=== PATIENT | male | born 1955 | race Caucasian/White ===

== ENCOUNTER 2017-03-27 08:15 | Emergency (ER) | payer MEDICARE ==
[~2017-03-27] VITALS: Ht 185.4 cm; Wt 113.4 kg
[~2017-03-27 08:15] MED LIST: ADULT LOW DOSE81 MG PO; AMITRIPTYLINE H10 MG PO; ATACAND8 MG PO; BUPROPION HCL100 M1 PO; CANDESARTAN-HC1 EACH PO; DIAZEPAM5 MG PO; DILAUDID2 MG PO; FLOMAX0.4 MG PO; LORTAB 7.5-5001 EACH PO; LOSARTAN-HCTZ1 EACH PO; METFORMIN HCL500 MG PO; NASAL DECONGEST30 MG PO; NORCO 5-325 TA1 EACH PO; PERCOCET 10-321 EACH PO; PERCOCET 5-3251 EACH PO; POTASSIUM CITR10 MEQ PO; POTASSIUM CITR500 GM MISC; PROZAC20 MG PO; PYRIDIUM200 MG PO; SIMVASTATIN10 MG PO; ZOFRAN ODT8 MG PO; ZOLPIDEM TARTRA10 MG PO
--- OUTSIDE RECORDS SUMMARY | 2017-03-27 08:58 | XMS | Clinical Summary ---
Demographics + + + | Address | [address] | | | [place] [address] | + + + | Home Phone | | + + + | Preferred Language | Unknown | + + + | Marital Status | | + + + | Sikhism Affiliation | Unknown | + + + | Race | White | + + + | Ethnic Group | Not or | + + + Author + + + | Author | [facility] | + + + | Organization | [facility] | + + + | Address | Unknown | + + + | Phone | Unavailable | + + + Support +------+ +---------+ + +--------+ | Name | Relationship | Address | Phone | +------+ +---------+ + +--------+ ECON | [address] | | [place] | [address] | +------+ +---------+ + +--------+ Care Team Providers + +------+-------+ | Care Laborer Sawmill Name | Role | Phone | + +------+-------+ | Flo Mendoza DO | PP | tel | + +------+-------+ Source Comments [facility] and [facility] Allergies No Known Allergies Current Medications + + +-------+---------+------+------+-------+ | Prescription | Sig. | Disp. | Refills | Star | End | Statu | | | | | | t | Date | s | | | | | | Date | | | + + +-------+---------+------+------+-------+ | ZYRTEC OR | None Entered | | | | | Activ | | | | | | | | e | + + +-------+---------+------+------+-------+ | ASPIRIN 81 MG CAP, | take 1 capsule | | | | | Activ | | DELAYED RELEASE | (81mg) by oral route | | | | | e | | | once daily | | | | | | + + +-------+---------+------+------+-------+ | | None Entered | | | | | Activ | | E-[id number]-R-PYROGLU | | | | | | e | | BRITT (BULK) MISC | | | | | | | + + +-------+---------+------+------+-------+ | GLUCOSAMINE (BULK) | None Entered | | | | | Activ | | MISC | | | | | | e | + + +-------+---------+------+------+-------+ | Topiramate | take 1 tab po bid | 60 | 3 | 05/3 | | Activ | | (TOPAMAX) 25 mg Oral | | | | 1/20 | | e | | TABS | | | | 07 | | | + + +-------+---------+------+------+-------+ | Amitriptyline HCl | start with 1 tab a | 120 | 3 | 11/2 | | Activ | | 10 mg Oral Tablet | night increasing by | | | 9/20 | | e | | | 1 tab up to 40 mg | | | 07 | | | + + +-------+---------+------+------+-------+ | Atorvastatin | take 1 tablet (20 | | | | | Activ | | Calcium (LIPITOR) 20 | mg) by oral route | | | | | e | | mg Oral Tablet | once daily | | | | | | + + +-------+---------+------+------+-------+ | | take 1 capsule by | | | | | Activ | | Dipyridamole-Aspirin | oral route 2 times | | | | | e | | (AGGRENOX) 200-25 | per day in the | | | | | | | mg Oral Cap, | morning and evening | | | | | | | Multiphasic Release | | | | | | | | 12 hr | | | | | | | + + +-------+---------+------+------+-------+ | Candesartan | take 1 tablet (8 mg) | | | | | Activ | | Cilexetil (ATACAND) | by oral route once | | | | | e | | 8 mg Oral Tablet | daily | | | | | | + + +-------+---------+------+------+-------+ | Escitalopram | take 1 tablet (10 | | | | | Activ | | Oxalate (LEXAPRO) 10 | mg) by oral route | | | | | e | | mg Oral Tablet | once daily | | | | | | + + +-------+---------+------+------+-------+ | Folic Acid 1 mg | take 1 tablet (1 mg) | | | | | Activ | | Oral Tablet | by oral route once | | | | | e | | | daily | | | | | | + + +-------+---------+------+------+-------+ | Escitalopram | take 3 tablets a day | | | | | Activ | | Oxalate (LEXAPRO) 10 | | | | | | e | | mg Oral Tablet | | | | | | | + + +-------+---------+------+------+-------+ Active Problems Not on file Family History + + +------+ + | Medical History | Relation | Name | Comments | + + +------+ + | Liver Disease | Brother | | hep c | + + +------+ + | Heart Failure | Father | | | + + +------+ + + +------+--------+ + | Relation | Name | Status | Comments | + +------+--------+ + | Brother | | | | + +------+--------+ + | Father | | | | + +------+--------+ + Social History + + + +--------+ + | Tobacco Use | Types | Packs/Day | Years | Date | | | | | Used | | + + + +--------+ + | Former Smoker | Cigarettes | 0.5 | | Quit: 03/18/1999 | + + + +--------+ + + + +---------+ + | Alcohol Use | Drinks/We | oz/Week | Comments | | | ek | | | + + +---------+ + | Yes | | | | + + +---------+ + + + + | Sex Assigned at | Date Recorded | | | | + + + | Not on file | | + + + Last Filed Vital Signs + + + + | Vital Sign | Reading | Time Taken | + + + + | Blood Pressure | 116/80 | 03/28/2007 11:07 AM PST | + + + + | Pulse | 84 | 03/28/2007 11:07 AM PST | + + + + | Temperature | - | - | + + + + | Respiratory Rate | 18 | 03/28/2007 11:07 AM PST | + + + + | Oxygen Saturation | 97% | 03/28/2007 11:07 AM PST | + + + + | Inhaled Oxygen | - | - | | Concentration | | | + + + + | Weight | 126.2 kg (278 lb 4.8 | 03/28/2007 11:07 AM PST | | | oz) | | + + + + | Height | - | - | + + + + | Body Mass Index | - | - | + + + + Plan of Treatment + + + + + | Health Maintenance | Due Date | Last Done | Comments | + + + + + | INFLUENZA VACCINE | | | | | (FLU SHOT) | 7 | | | + + + + + Results Not on filefrom Last 3 Months"
[2017-03-27] MEDS ORDERED: ONDANSETRON ODT8 MG PO (09:37)
[2017-03-27] MEDS ORDERED: PROTONIX40 MG PO (09:37)
== END 2017-03-27 09:52 | disposition home or self-care (01) ==
LOC: ED 08:15
DX: R11.2 Nausea with vomiting, unspecified (principal); R10.9 Unspecified abdominal pain; I10 Essential (primary) hypertension; Z87.442 Personal history of urinary calculi; Z87.891 Personal history of nicotine dependence; Z90.49 Acquired absence of other specified parts of digestive tract; Z88.5 Allergy status to narcotic agent; Z79.899 Other long term (current) drug therapy; Z79.82 Long term (current) use of aspirin
CPT/HCPCS: 76705; 80053; 82150; 83690; 85025; 96374; 96375; 99284; J2270; J2405; J7030

== ENCOUNTER 2017-07-09 01:54 | Emergency (ER) | payer MEDICARE ==
[~2017-07-09] VITALS: Ht 185.4 cm; Wt 117.9 kg
--- OUTSIDE RECORDS SUMMARY | ~2017-07-09 | XMS | Clinical Summary ---
Demographics + + + | Address | [address] | | | [place] [address] | + + + | Home Phone | | + + + | Preferred Language | Unknown | + + + | Marital Status | | + + + | Yarsani Affiliation | Unknown | + + + | Race | Unknown | + + + | Ethnic Group | Unknown | + + + Author + + + | Author | [facility] | | | and [place] | + + + | Organization | [facility] | | | and [place] | + + + | Address | Unknown | + + + | Phone | Unavailable | + + + Support + + +---------+ + | Name | Relationship | Address | Phone | + + +---------+ + | FABY HILLIARD ECON | Unknown | | + + +---------+ + Care Team Providers + +------+ + | Care Pick Up Man Name | Role | Phone | + +------+ + PP | Unavailable | + +------+ + Allergies Not on File Current Medications Not on file Active Problems Not on file Social History + +-------+ +--------+------+ | Tobacco Use | Types | Packs/Day | Years | Date | | | | | Used | | + +-------+ +--------+------+ | Never Assessed | | | | | + +-------+ +--------+------+ + + + | Sex Assigned at | Date Recorded | | | | + + + | Not on file | | + + + Plan of Treatment + + + + + | Health Maintenance | Due Date | Last Done | Comments | + + + + + | Hepatitis C | | | | | Screening | 8 | | | + + + + + | Vaccine: | | | | | Dtap/Tdap/Td (1 - | 7 | | | | Tdap) | | | | + + + + + | COLON CANCER | | | | | SCREENING | 8 | | | | (COLONOSCOPY EVERY | | | | | 10 YEARS 50-75) | | | | + + + + + | Vaccine: Influenza | | | | | (Season Ended) | 8 | | | + + + + + Results Not on filefrom Last 3 Months"
--- OUTSIDE RECORDS SUMMARY | ~2017-07-09 | XMS | Clinical Summary ---
Demographics + + + | Address | [address] | | | [place] [address] | + + + | Home Phone | | + + + | Preferred Language | Unknown | + + + | Marital Status | | + + + | Episcopalian Affiliation | Unknown | + + + | Race | White | + + + | Ethnic Group | Not or | + + + Author + + + | Author | [facility] | + + + | Organization | [facility] | + + + | Address | Unknown | + + + | Phone | Unavailable | + + + Support + + + + + | Name | Relationship | Address | Phone | + + + + + | LANCE WARREN | ECON | [address] | | | | | [place] | | | | | [address] | | + + + + + Care Team Providers + +------+ + | Care Activities Concierge Name | Role | Phone | + +------+ + | Flo Mendoza DO | PP | | + +------+ + Source Comments EYAL is fully live on both [facility] Amb[facility] and [facility] InPatient.[facility] Allergies No Known Allergies Current Medications [...] | | | | Activ | | U-[id number]-K-PYROGLU | | | | | | e [...] | | | | (FLU SHOT) | 8 | | | + + + + + Results Not on filefrom Last 3 Months"
--- OUTSIDE RECORDS SUMMARY | ~2017-07-09 | XMS | Clinical Summary ---
Demographics + + + | Address | [address] | | | [place] [address] | + + + | Home Phone | | + + + | Preferred Language | Unknown | + + + | Marital Status | | + + + | Episcopal Affiliation | Unknown | + + + | Race | White | + + + | Ethnic Group | Not or | + + + Author + + + | Author | [facility] | + + + | Organization | [facility] | + + + | Address | Unknown | + + + | Phone | Unavailable | + + + Support + + + + + | Name | Relationship | Address | Phone | + + + + + | LANCE WARREN | ECON | [address] | | | | | [place] | | | | | [address] | | + + + + + Care Team Providers + +------+ + | Care Ceramic Tile Mechanic Name | Role | Phone | + +------+ + | Flo Mendoza DO | PP | | + +------+ + Source Comments EYAL is fully live on both [facility] and [facility] InPatient.[facility] Allergies No Known Allergies Current Medications [...] | | | | Activ | | P-[id number]-T-PYROGLU | | | | | | e [...]
--- OUTSIDE RECORDS SUMMARY | ~2017-07-09 | XMS | Clinical Summary ---
Demographics + + + | Address | [address] | | | [place] [address] | + + + | Home Phone | | + + + | Preferred Language | Unknown | + + + | Marital Status | | + + + | Yazdanism Affiliation | Unknown | + + + | Race | Unknown | + + + | Ethnic Group | Unknown | + + + Author + + + | Author | [facility] | | | and [place] | + + + | Organization | [facility] | | | and [...] Team Providers + +------+ + | Care Automatic Beam Warper Tender Name | Role | Phone | + [...]
--- OUTSIDE RECORDS SUMMARY | ~2017-07-09 | XMS | Clinical Summary ---
Demographics + + + | Address | [address] | | | [place] [address] | + + + | Home Phone | | + + + | Preferred Language | Unknown | + + + | Marital Status | | + + + | Judaism Affiliation | Unknown | + + + | Race | Unknown | + + + | Ethnic Group | Unknown | + + + Author + + + | Author | [facility] | + + + | Organization | [facility] | + + + | Address | Unknown | + + + | Phone | Unavailable | + + + Support + + + + + | Name | Relationship | Address | Phone | + + + + + | Angeline Hilliard | ECON | [address] | | | | | [place] | | | | | [address] | | + + + + + Care Team Providers + +------+ + | Care Landscape Maintenance Internship Name | Role | Phone | + +------+ + | Andrew Mendoza DO | PP | | + +------+ + Allergies + + + + + + | Active Allergy | Reactions | Severity | Noted | Comments | | | | | Date | | + + + + + + | Codeine | Diarrhea | Low | 06/03/19 | NAUSEA, VOMITING | | | | | 16 | | + + + + + + Current Medications + + +-------+---------+------+------+-------+ | Prescription | Sig. | Disp. | Refills | Star | End | Statu | | | | | | t | Date | s | | | | | | Date | | | + + +-------+---------+------+------+-------+ | potassium citrate | Take 20 mEq by mouth | | | | | Activ | | (UROCIT-K) 10 MEQ | 2 (two) times | | | | | e | | (1080 MG) SR tablet | daily. | | | | | | + + +-------+---------+------+------+-------+ | buPROPion | Take 100 mg by mouth | | | | | Activ | | (WELLBUTRIN) 100 MG | daily. | | | | | e | | tablet | | | | | | | + + +-------+---------+------+------+-------+ | metFORMIN | Take 500 mg by mouth | | | | | Activ | | (GLUCOPHAGE) 500 MG | 2 (two) times daily | | | | | e | | tablet | with meals. | | | | | | + + +-------+---------+------+------+-------+ | | Take 1 tablet by | | | | | Activ | | losartan-hydrochloro | mouth daily. | | | | | e | | thiazide (HYZAAR) | | | | | | | | 50-12.5 MG per | | | | | | | | tablet | | | | | | | + + +-------+---------+------+------+-------+ | Zolpidem Tartrate | Place under the | | | | | Activ | | 10 MG SUBL | tongue. | | | | | e | + + +-------+---------+------+------+-------+ | simvastatin | Take 10 mg by mouth | | | | | Activ | | (ZOCOR) 10 MG tablet | nightly. | | | | | e | + + +-------+---------+------+------+-------+ | loratadine | Take 10 mg by mouth | | | | | Activ | | (CLARITIN) 10 MG | daily. | | | | | e | | tablet | | | | | | | + + +-------+---------+------+------+-------+ | Fluoxetine HCl, | Take 80 mg by mouth | | | | | Activ | | PMDD, 20 MG CAPS | every morning. | | | | | e | + + +-------+---------+------+------+-------+ | aspirin 81 MG | Take 81 mg by mouth | | | | | Activ | | tablet | daily. 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) | | + + + | Memory loss | 06/07/2015 | + + + | Obstructive sleep apnea | 06/07/2015 | + + + | Hypertension | 06/07/2015 | + + + | Noncompliance with CPAP treatment | 06/07/2015 | + + + Family History + +------+ + + | Relation | Name | Status | Comments | + +------+ + + | Father | | | | + +------+ + + | Mother | | | | + +------+ + + Social History + +-------+ +--------+ + | Tobacco Use | Types | Packs/Day | Years | Date | | | | | Used | | + +-------+ +--------+ + | Former Smoker | | | | Quit: 08/28/1996 | + +-------+ +--------+ + + +---+---+---+ | Smokeless Tobacco: | | | | | Never Used | | | | + +---+---+---+ + + +---------+ + | Alcohol Use | Drinks/We | oz/Week | Comments | | | ek | | | + + +---------+ + | Yes | 0 | 0.0 | occasional | | | Standard | | | | | drinks or | | | | | | | | | | equivalen | | | | | t | | | + + +---------+ + + + + | Sex Assigned at | Date Recorded | | | | + + + | Not on file | | + + + Last Filed Vital Signs + + + + | Vital Sign | Reading | Time Taken | + + + + | Blood Pressure | 146/90 | 08/28/2016 12:44 PM PDT | + + + + | Pulse | 78 | 08/28/2016 12:44 PM PDT | + + + + | Temperature | - | - | + + + + | Respiratory Rate | - | - | + + + + | Oxygen Saturation | 96% | 08/28/2016 12:44 PM PDT | + + + + | Inhaled Oxygen | - | - | | Concentration | | | + + + + | Weight | 120.7 kg (266 lb 3.2 | 08/28/2016 12:44 PM PDT | | | oz) | | + + + + | Height | 185.4 cm (6' 1") | 08/28/2016 12:44 PM PDT | + + + + | Body Mass Index | 35.12 | 08/28/2016 12:44 PM PDT | + + + + Plan of Treatment + + + + + | Health Maintenance | Due Date | Last Done | Comments | + + + + + | Vaccine: | | | | | Dtap/Tdap/Td (1 - | 7 | | | | Tdap) | | | | + + + + + | Colon Cancer | | | | | Screening | 8 | | | | (Colonoscopy) | | | | + + + + + | Vaccine: Influenza | | | | | (Season Ended) | 8 | | | + + + + + Results Not on filefrom Last 3 Months Insurance + +--------+ +------+-------+ + | Payer | Benefi | Subscriber | Type | Phone | Address | | | t Plan | ID | | | | | | / | | | | | | | Group | | | | | + +--------+ +------+-------+ + | MEDICARE | MEDICA | xxxxxxxxxx | | | [address] | | | RE | | | | [place] [id number] | | | IP-OP | | | | | + +--------+ +------+-------+ + | FIRST CHOICE | FC-NET | xxxxxxxxxxx | | | | | | WORK | | | | | + +--------+ +------+-------+ + + +--------+ +--------+ + + | Guarantor Name | Accoun | Relation to | Date | Phone | Billing Address | | | t Type | Patient | of | | | | | | | | | | + +--------+ +--------+ + + | VLADIMIR HILLIARD | Person | Self [birth year] | Home: | [address] | | | al/[place]im[place] | | [phone] | [phone] [place] | | | [place] | | | [phone] | [phone] | + +--------+ +--------+ + +
--- OUTSIDE RECORDS SUMMARY | ~2017-07-09 | XMS | Clinical Summary ---
Demographics + + + | Address | [address] | | | [place] [address] | + + + | Home Phone | | + + + | Preferred Language | Unknown | + + + | Marital Status | | + + + | Nondenominational Affiliation | Unknown | + + + | Race | Unknown | + + + | Ethnic Group | Unknown | + + + Author + + + | Author | [facility] | + + + | Organization | [facility] | + + + | Address | Unknown | + + + | Phone | Unavailable | + + + Support + + + + + | Name | Relationship | Address | Phone | + + + + + | Angeline Hilliard | ECON | [address] | | | | | [place] | | | | | [address] | | + + + + + Care Team Providers + +------+ + | Care Instructional Supervisor Name | Role | Phone | + [...] | xxxxxxxxxx | | | [address] | | | RE | | | | [place] [phone] | | | IP-OP | | | [...] | [place] | | | [phone] | [phone] | + +--------+ +--------+ + +
[~2017-07-09 01:54] MED LIST changes: +ONDANSETRON ODT8 MG PO; +PROTONIX40 MG PO
[2017-07-09] MEDS ORDERED: SCOPOLAMINE1 EACH TD (02:02)
[2017-07-09] MEDS ORDERED: TAMSULOSIN HCL0.4 MG PO (02:02)
[2017-07-09] MEDS ORDERED: PROMETHAZINE12.5 M1 PO (02:10)
[2017-07-09] MEDS ORDERED: PERCOCET 5-3251 EACH PO (03:26)
== END 2017-07-09 03:53 | disposition home or self-care (01) ==
LOC: ED 01:54
DX: N13.2 Hydronephrosis with renal and ureteral calculous obstruction (principal); I10 Essential (primary) hypertension; Z87.442 Personal history of urinary calculi; Z87.891 Personal history of nicotine dependence; Z88.5 Allergy status to narcotic agent; Z79.899 Other long term (current) drug therapy; Z79.82 Long term (current) use of aspirin
CPT/HCPCS: 74176; 96374; 96375; 99284; J1885; J2270; J2405

== ENCOUNTER 2019-08-31 19:45 | Emergency (ER) | payer MEDICARE, OTHER ==
[~2019-08-31] VITALS: Ht 185.4 cm; Wt 117.9 kg
[~2019-08-31 19:45] MED LIST changes: +PROMETHAZINE12.5 M1 PO; +SCOPOLAMINE1 EACH TD; +TAMSULOSIN HCL0.4 MG PO
== END 2019-08-31 22:32 | disposition home or self-care (01) ==
LOC: ED 19:45
DX: I67.850 Cerebral autosomal dominant 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 (principal); I10 Essential (primary) hypertension; Z87.891 Personal history of nicotine dependence; Z88.5 Allergy status to narcotic agent; Z88.6 Allergy status to analgesic agent; Z79.899 Other long term (current) drug therapy
CPT/HCPCS: 70450; 96361; 96374; 96375; 99284-25; J1200; J1885; J2765; J7030

== ENCOUNTER 2021-06-14 15:23 | Emergency (ER) | payer MEDICARE, OTHER ==
[~2021-06-14] VITALS: Ht 185.4 cm; Wt 117.9 kg
[2021-06-14] MEDS ORDERED: PERCOCET 5-3251 EACH PO (20:01)
== END 2021-06-14 20:14 | disposition home or self-care (01) ==
LOC: ED 15:23
DX: S20.211A Contusion of right front wall of thorax, initial encounter (principal); I10 Essential (primary) hypertension; Z87.891 Personal history of nicotine dependence; Z88.5 Allergy status to narcotic agent; Z79.899 Other long term (current) drug therapy; Z79.82 Long term (current) use of aspirin; W19.XXXA Unspecified fall, initial encounter; W22.8XXA Striking against or struck by other objects, initial encounter
CPT/HCPCS: 71101; 99283-25

== ENCOUNTER 2021-10-31 17:19 | Emergency (ER) | payer MEDICARE, OTHER ==
[~2021-10-31] VITALS: Ht 185.4 cm; Wt 117.9 kg
--- NOTE | 2021-11-03 15:27 | EKG ---
[facility] [address] [facility] [place] [address] Signed Sinus tachycardia Left axis deviation Inferior infarct , age undetermined Abnormal ECG No previous ECGs available Confirmed by NARINDER EVANS MD ([id number]) on 11/03/2021 3:26:49 PM Electronically Signed By: NARINDER EVANS MD 11/03/21 1527 PATIENT NAME: MAGALYS HILLIARD Electrocardiogram DATE OF : 59 PHYSICIAN: NARINDER EVANS MD REPORT #: [id number] REPORT IS CONFIDENTIAL AND NOT TO BE RELEASED WITHOUT AUTHORIZATION
== END 2021-10-31 20:01 | disposition home or self-care (01) ==
LOC: ED 17:19
DX: F32.A Depression, unspecified (principal); F01.50 Vascular dementia, unspecified severity, without behavioral disturbance, psychotic disturbance, mood disturbance, and anxiety; I10 Essential (primary) hypertension; Z87.891 Personal history of nicotine dependence; Z88.5 Allergy status to narcotic agent; Z88.6 Allergy status to analgesic agent
CPT/HCPCS: 36415; 80053; 81001; 83605; 84443; 85025; 93005; 93010; 99285; G0480; Q0177

== ENCOUNTER 2022-06-29 19:27 | Emergency (ER) | payer MEDICARE, OTHER ==
[~2022-06-29] VITALS: Ht 185.4 cm; Wt 123.8 kg
[2022-06-29] MEDS ORDERED: BACTRIM DS TAB1 EACH PO (23:26)
[2022-06-29 23:38] VITALS: BP 140/92
== END 2022-06-29 23:36 | disposition home or self-care (01) ==
LOC: ED 19:27
DX: N39.0 Urinary tract infection, site not specified (principal); E11.9 Type 2 diabetes mellitus without complications; I10 Essential (primary) hypertension; E78.5 Hyperlipidemia, unspecified; Z87.891 Personal history of nicotine dependence; Z88.5 Allergy status to narcotic agent; Z79.899 Other long term (current) drug therapy; Z79.82 Long term (current) use of aspirin
CPT/HCPCS: 36415; 74177; 80053; 81001; 85025; 96375; 99284-25; J0696; J2405; Q9967

== ENCOUNTER 2022-08-15 12:36 | Emergency (ER) | payer MEDICARE, OTHER ==
[~2022-08-15] VITALS: Ht 185.4 cm; Wt 123.8 kg
[~2022-08-15 12:36] MED LIST changes: +BACTRIM DS TAB1 EACH PO; +K-TAB ER20 MEQ PO; +MACROBID 100 M100 MG PO; +PROMETHAZINE HC25 M1 PO
[2022-08-15] MEDS ORDERED: ATIVAN1 MG PO (14:44)
[2022-08-15 14:58] VITALS: BP 129/95
--- NOTE | 2022-08-16 12:29 | EKG ---
[facility] [address] [facility] [place] [address] Signed Normal sinus rhythm Left axis deviation Prolonged QT Abnormal ECG When compared with ECG of 06-JUL-2022 10:10, aberrant conduction is no longer present Confirmed by NARINDER EVANS MD ([id number]) on 08/16/2022 12:29:32 PM Electronically Signed By: NARINDER EVANS MD 08/16/22 1229 PATIENT NAME: MAGALYS HILLIARD Electrocardiogram DATE OF : 59 PHYSICIAN: NARINDER EVANS MD REPORT #: [id number] REPORT IS CONFIDENTIAL AND NOT TO BE RELEASED WITHOUT AUTHORIZATION
== END 2022-08-15 14:45 | disposition home or self-care (01) ==
LOC: ED 12:36
DX: F41.9 Anxiety disorder, unspecified (principal); I67.850 Cerebral autosomal dominant 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; I10 Essential (primary) hypertension; Z87.891 Personal history of nicotine dependence; Z88.5 Allergy status to narcotic agent; Z79.899 Other long term (current) drug therapy; Z79.82 Long term (current) use of aspirin
CPT/HCPCS: 36415; 70450; 80053; 84484; 85025; 93005; 93010; 96374; 99285-25; J2060; J7040

== ENCOUNTER 2023-03-29 04:28 | Emergency (ER) | payer MEDICARE, OTHER ==
[~2023-03-29] VITALS: Ht 185.4 cm; Wt 115.5 kg
--- NOTE | ~2023-03-29 | EKG ---
[facility] [address] [facility] [place], [place] [address] Draft EK completed, results pending confirmation PATIENT NAME: BABAKMAGALYS Electrocardiogram DATE OF : 59 PHYSICIAN: PRELIMINARY REPORT #: [id number] REPORT IS CONFIDENTIAL AND NOT TO BE RELEASED WITHOUT AUTHORIZATION
[~2023-03-29 04:28] MED LIST changes: +ATIVAN1 MG PO
[2023-03-29] MEDS ORDERED: LISINOPRIL40 MG PO (04:36)
[2023-03-29] MEDS ORDERED: AZITHROMYCIN500 MG PO (04:36)
[2023-03-29] MEDS ORDERED: ROSUVASTATIN CA10 MG PO (04:36)
[2023-03-29] MEDS ORDERED: BENZONATATE200 MG PO (04:36)
[2023-03-29] MEDS ORDERED: CARVEDILOL3.125 MG PO (04:37)
[2023-03-29] MEDS ORDERED: PREDNISONE20 MG PO (04:37)
[2023-03-29 04:49] LABS: BASOPHILS 0.3 % (0-2); EOSINOPHILS 0.2 % (0-6); HEMATOCRIT 41.5 % (35.0-50.0); HEMOGLOBIN 13.7 g/dL (12.0-18.0); LYMPHOCYTES 12.1 % (24-44); MCH 30.8 (27-36); MCV 93.2 fl (81-99); MONOCYTES 3.1 % (0-12); NEUTROPHILS 84.3 % (39-80); PLATELET COUNT 131 K/uL (140-440); RBC 4.45 M/ul (4.3-5.7); RDW 15.1 (10.5-15.0)
[2023-03-29 04:55] LABS: INR 1.07 (0.80-1.30); PROTIME 13.5 Sec (11.2-14.2)
[2023-03-29 05:04] LABS: ALBUMIN 3.3 g/dL (3.4-5.0); ALBUMIN/GLOBULIN RATIO 0.69 (1.1-2.4); ANION GAP 11.4 (7-21); BILIRUBIN, TOTAL 1.1 ng/dL (0.2-1.0); BUN/CREATININE RATIO 8.24 (6.0-28.6); CALCIUM 9.3 mg/dL (8.5-10.1); CREATININE, SERUM 1.82 mg/dL (0.70-1.30); POTASSIUM 3.4 mmol/L (3.5-5.1); PROTEIN, TOTAL 8.1 g/dL (6.4-8.2)
[2023-03-29] MEDS ORDERED: MECLIZINE HCL25 M1 PO (08:26)
[2023-03-29 08:51] LABS: BILIRUBIN, URINE NEGATIVE (negative); BLOOD/HGB, URINE NEGATIVE (Negative); KETONE, URINE TRACE (Negative); LEUK ESTERASE, URINE NEGATIVE (negative); NITRITE, URINE NEGATIVE (negative)
[2023-03-29 09:15] VITALS: BP 145/103
== END 2023-03-29 09:16 | disposition home or self-care (01) ==
LOC: ED 04:28
PROVIDERS: Family Medicine
DX: R42 Dizziness and giddiness (principal); I67.850 Cerebral autosomal dominant 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; I10 Essential (primary) hypertension; I25.2 Old myocardial infarction; Z88.5 Allergy status to narcotic agent; Z79.82 Long term (current) use of aspirin; Z79.52 Long term (current) use of systemic steroids; Z79.899 Other long term (current) drug therapy
CPT/HCPCS: 36415; 70450; 80053; 81003; 83735; 84484; 85025; 85610; 93005; 93010; 96374; 99284-25; J2405

== ENCOUNTER 2023-04-10 17:18 | Emergency (ER) | payer MEDICARE, OTHER ==
[~2023-04-10] VITALS: Ht 185.4 cm; Wt 111.4 kg
[~2023-04-10 17:18] MED LIST changes: +AZITHROMYCIN500 MG PO; +BENZONATATE200 MG PO; +CARVEDILOL3.125 MG PO; +LISINOPRIL40 MG PO; +MECLIZINE HCL25 M1 PO; +PREDNISONE20 MG PO; +ROSUVASTATIN CA10 MG PO
--- OUTSIDE RECORDS SUMMARY | 2023-04-10 17:20 | XMS ---
PreManage Notification: MAGALYS HILLIARD Security Database Consultant Events No recent Security Events currently on file CRITERIA MET - [facility] - 2 Visits in 30 Days CARE PROVIDERS ANTHONY WILL [facility] Current PHONE: Unknown Dina has no Care Guidelines for this patient. Yohannes VISIT COUNT (12 MO.) 5 [facility] TOTAL 5 NOTE: Visits indicate total known visits. ED/UCC VISIT TRACKING (12 MO.) 04/10/2023 17:19 [facility] TYPE: Emergency COMPLAINT: - POSS DEHYDRATION 03/29/2023 04:28 [facility] TYPE: Emergency COMPLAINT: - FALL DIAGNOSES: - Allergy status to narcotic agent - Cerebral autosomal dominant 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 - Dizziness and giddiness - Essential (primary) hypertension - correction (current) use of aspirin - termite helper (current) use of systemic steroids - Old myocardial infarction - Other group home (current) drug therapy 08/15/2022 12:37 [facility] TYPE: Emergency COMPLAINT: - CHEST PAIN DIAGNOSES: - Allergy status to narcotic agent - Anxiety disorder, unspecified - Cerebral autosomal dominant 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 - Chest pain, unspecified - Essential (primary) hypertension - correction (current) use of aspirin - Other group home (current) drug therapy - Personal history of nicotine dependence 07/06/2022 09:41 [facility] TYPE: Emergency COMPLAINT: - FALL, DIZZY, NO APPETITE, N/V DIAGNOSES: - Allergy status to narcotic agent - Dizziness and giddiness - Essential (primary) hypertension - termite helper (current) use of aspirin - Other manager terminal (current) drug therapy - Personal history of nicotine dependence - Urinary tract infection, site not specified 06/29/2022 19:30 [facility] TYPE: Emergency COMPLAINT: - POSS UTI DIAGNOSES: - Allergy status to narcotic agent - Essential (primary) hypertension - Hematuria, unspecified - Hyperlipidemia, unspecified - correction (current) use of aspirin - Other manager terminal (current) drug therapy - Personal history of nicotine dependence - Type 2 diabetes mellitus without complications - Urinary tract infection, site not specified INPATIENT VISIT TRACKING (12 MO.) 07/10/2022 08:46 [facility]) TYPE: Neurology DIAGNOSES: - Stroke Like Cym [email or web address]
[2023-04-10] MEDS ORDERED: METFORMIN HCL1000 MG PO (17:48)
[2023-04-10] MEDS ORDERED: AMLODIPINE BESY10 MG PO (17:49)
[2023-04-10] MEDS ORDERED: METOCLOPRAMIDE10 MG PO (17:49)
[2023-04-10 18:41] LABS: BASOPHILS 0.4 % (0-2); EOSINOPHILS 1.9 % (0-6); HEMATOCRIT 45.6 % (35.0-50.0); HEMOGLOBIN 15.5 g/dL (12.0-18.0); LYMPHOCYTES 22.4 % (24-44); MCV 91.2 fl (81-99); MONOCYTES 8.4 % (0-12); NEUTROPHILS 66.9 % (39-80); PLATELET COUNT 145 K/uL (140-440); RDW 15.4 (10.5-15.0)
[2023-04-10 18:50] LABS: ALBUMIN 3.1 g/dL (3.4-5.0); ALBUMIN/GLOBULIN RATIO 0.65 (1.1-2.4); ANION GAP 13.3 (7-21); BILIRUBIN, TOTAL 1.3 ng/dL (0.2-1.0); BUN/CREATININE RATIO 6.32 (6.0-28.6); CALCIUM 9.2 mg/dL (8.5-10.1); CREATININE, SERUM 1.58 mg/dL (0.70-1.30); MAGNESIUM 2.1 mg/dL (1.8-2.4); POTASSIUM 3.3 mmol/L (3.5-5.1); PROTEIN, TOTAL 7.9 g/dL (6.4-8.2)
[2023-04-10 20:11] LABS: INFLUENZA B NAA NEGATIVE (NEGATIVE); RESPIRATORY SYNCYTIAL VIR NAA NEGATIVE (NEGATIVE)
[2023-04-10 21:42] LABS: BILIRUBIN, URINE NEGATIVE (negative); BLOOD/HGB, URINE NEGATIVE (Negative); KETONE, URINE NEGATIVE (Negative); LEUK ESTERASE, URINE NEGATIVE (negative); NITRITE, URINE NEGATIVE (negative)
[2023-04-10] MEDS ORDERED: PROMETHEGAN25 MG PR (22:12)
[2023-04-10 22:30] VITALS: BP 134/103
== END 2023-04-10 22:42 | disposition home or self-care (01) ==
LOC: ED 17:18
PROVIDERS: Emergency Medicine; Family Medicine
DX: R11.2 Nausea with vomiting, unspecified (principal); E86.0 Dehydration; I10 Essential (primary) hypertension; I25.2 Old myocardial infarction; Z87.891 Personal history of nicotine dependence; Z88.5 Allergy status to narcotic agent; Z79.899 Other long term (current) drug therapy; Z79.84 Long term (current) use of oral hypoglycemic drugs; Z79.82 Long term (current) use of aspirin; Z20.822 Contact with and (suspected) exposure to COVID-19
CPT/HCPCS: 36415; 51701; 51798; 71045; 71250; 80053; 81003; 83735; 83880; 85025; 87502; 99284-25; J0780; J7121; U0002

== ENCOUNTER 2024-05-15 10:47 | Inpatient (IN) | payer MEDICARE, OTHER ==
[~2024-05-15] VITALS: Ht 185.4 cm; Wt 128.3 kg
[~2024-05-15 10:47] MED LIST changes: +AMLODIPINE BESY10 MG PO; +METFORMIN HCL1000 MG PO; +METOCLOPRAMIDE10 MG PO; +PROMETHEGAN25 MG PR; -SCOPOLAMINE1 EACH TD; -TAMSULOSIN HCL0.4 MG PO; +TAMSULOSIN HCL0.4 MG PT; +TRANSDERM-SCOP1 EACH TOP
[2024-05-15] MEDS ORDERED: VALSARTAN40 MG PT (10:55)
[2024-05-15] MEDS ORDERED: DULOXETINE HCL60 MG PO (10:56)
[2024-05-15] MEDS ORDERED: GABAPENTIN300 MG PO (10:56)
[2024-05-15] MEDS ORDERED: CLOPIDOGREL75 MG PT (10:57)
[2024-05-15] MEDS ORDERED: SODIUM CHLORIDE 0.9% 1,000 ML IV ONE (11:00)
[2024-05-15 11:09] LABS: BASOPHILS 0.5 % (0-2); EOSINOPHILS 4.2 % (0-6); HEMATOCRIT 42.5 % (35.0-50.0); HEMOGLOBIN 14.4 g/dL (12.0-18.0); LYMPHOCYTES 22.9 % (24-44); MCH 31.5 (27-36); MCHC 33.9 g/dl (30-36); MONOCYTES 11.6 % (0-12); NEUTROPHILS 60.8 % (39-80); PLATELET COUNT 137 K/uL (140-440); RBC 4.57 M/ul (4.3-5.7); RDW 14.5 (10.5-15.0)
[2024-05-15 11:26] LABS: ALBUMIN 3.2 g/dL (3.4-5.0); ALBUMIN/GLOBULIN RATIO 0.74 (1.1-2.4); ANION GAP 11.4 (7-21); BILIRUBIN, TOTAL 0.7 mg/dL (0.2-1.0); BUN/CREATININE RATIO 8.64 (6.0-28.6); CALCIUM 9.4 mg/dL (8.5-10.1); CREATININE, SERUM 1.62 mg/dL (0.70-1.30); POTASSIUM 3.4 mmol/L (3.5-5.1); PROTEIN, TOTAL 7.5 g/dL (6.4-8.2)
--- NOTE | 2024-05-15 13:02 | EKG ---
[facility] [address] [facility] [place] [address] Signed Normal sinus rhythm Left axis deviation Moderate voltage criteria for LVH, may be normal variant ( R in aVL , [place] product ) Inferior infarct , age undetermined Abnormal ECG When compared with ECG of 29-MAR-2023 04:41, Inferior infarct is now present Confirmed by Hernandez Gambino DO ([id number]) on 05/15/2024 1:02:15 PM Electronically Signed By: HERNANDEZ GAMBINO DO 05/15/24 1302 PATIENT NAME: MAGALYS HILLIARDMOND Electrocardiogram DATE OF : 59 PHYSICIAN: HERNANDEZ GAMBINO DO REPORT #: [id number] REPORT IS CONFIDENTIAL AND NOT TO BE RELEASED WITHOUT AUTHORIZATION
[2024-05-15] MEDS ORDERED: GLUCAGON,HUMAN RECOMBINANT 1 MG/ML VIAL SUB-Q PRN (15:45)
[2024-05-15] MEDS ORDERED: DEXTROSE 50% 50 ML SYR IV PRN ×2 (15:45)
[2024-05-15] MEDS ORDERED: ACETAMINOPHEN 325 MG TAB PO PRN (15:45)
[2024-05-15] MEDS ORDERED: ondansetron HCL 4 MG/2 ML VIAL IV PRN (15:45)
[2024-05-15] MEDS ORDERED: IBLOOD GLUCOSE TEST STRIP 1 EA TEST XX PRN (15:45)
[2024-05-15] MEDS ORDERED: DEXTROSE 5% 1,000 ML IV PRN (15:45)
[2024-05-15 15:59] LABS: INR 1.01 (0.80-1.30); PROTIME 13.2 Sec (11.2-14.2)
[2024-05-15 16:04] LABS: CHOLESTEROL/HDL RATIO 2.9
[2024-05-15] MEDS ORDERED: PREDNISONE10 MG PO (16:16)
[2024-05-15] MEDS ORDERED: POTASSIUM CHLO10 ME1 PT (16:17)
[2024-05-15] MEDS ORDERED: VENTOLIN HFA18 GM INH (16:20)
[2024-05-15] MEDS ORDERED: BUPROPION HCL150 M2 PO (16:25)
[2024-05-15] MEDS ORDERED: METFORMIN HCL500 MG PT (16:27)
[2024-05-15 16:30] VITALS: BP 145/100
[2024-05-15] MEDS ORDERED: ASPIRIN 81 MG CHEW PO SCH (16:57)
[2024-05-15] MEDS ORDERED: CLOPIDOGREL BISULFATE 75 MG TAB PO SCH (16:57)
[2024-05-15] MEDS ORDERED: ATORVASTATIN 40 MG TAB PO SCH (17:00)
[2024-05-15] MEDS ORDERED: INSULIN LISPRO 100 UNIT/ML ML SUB-Q SCH (17:00)
[2024-05-15] MEDS ORDERED: IBLOOD GLUCOSE TEST STRIP 1 EA TEST VI SCH (17:00)
[2024-05-15 18:03] VITALS: BP 143/96
[2024-05-15 18:10] VITALS: BP 143/96
[2024-05-15] MEDS ORDERED: GABAPENTIN 300 MG CAP PO SCH (21:00)
[2024-05-15] MEDS ORDERED: MELATONIN 3 MG TAB PO PRN (21:00)
[2024-05-15 21:04] VITALS: BP 137/92
[2024-05-15 21:19] VITALS: BP 137/92
[2024-05-16] VITALS (13 sets, daily range): BP systolic 114–162; BP diastolic 74–117
[2024-05-16 05:27] LABS: BASOPHILS 0.4 % (0-2); EOSINOPHILS 4.3 % (0-6); HEMATOCRIT 40.8 % (35.0-50.0); LYMPHOCYTES 20.6 % (24-44); MCH 31.5 (27-36); MCHC 34.2 g/dl (30-36); MCV 92.2 fl (81-99); MONOCYTES 9.7 % (0-12); PLATELET COUNT 130 K/uL (140-440); RBC 4.42 M/ul (4.3-5.7); RDW 14.7 (10.5-15.0)
[2024-05-16 05:42] LABS: ANION GAP 11.3 (7-21); BUN/CREATININE RATIO 8.6 (6.0-28.6); CALCIUM 9.4 mg/dL (8.5-10.1); CREATININE, SERUM 1.51 mg/dL (0.70-1.30); POTASSIUM 3.3 mmol/L (3.5-5.1)
[2024-05-16] MEDS ORDERED: POTASSIUM CHLORIDE 10 MEQ TABCR PO ONE (07:45)
[2024-05-16] MEDS ORDERED: TAMSULOSIN HCL 0.4 MG CAP PO SCH ×2 (09:00→21:00)
[2024-05-16] MEDS ORDERED: buPROPion HCL XL 300 MG TAB.XL.24H PO SCH (09:00)
[2024-05-16] MEDS ORDERED: OMEPRAZOLE20 MG PO (11:33)
[2024-05-16] MEDS ORDERED: ZYRTEC10 MG PT (11:34)
[2024-05-16] MEDS ORDERED: PHARMACY RENAL DOSE ADJUSTMENT 1 DOSE MISC PO SCH (12:00)
[2024-05-16] MEDS ORDERED: bisacodyL 10 MG SUPP PR ONE (13:00)
[2024-05-16] MEDS ORDERED: POTASSIUM CHLORIDE 40 MEQ,LIDOCAINE HCL 1% 40 MG in DEXTROSE 5% 250 ML IV ONE (15:45)
[2024-05-16] MEDS ORDERED: LACTATED RINGER'S 1,000 ML IV SCH (15:45)
[2024-05-16] MEDS ORDERED: PANTOPRAZOLE SODIUM 40 MG/10 ML VIAL IV SCH (17:51)
[2024-05-16] MEDS ORDERED: ARTIFICIAL TEARS 15 ML BTL OU PRN (18:15)
[2024-05-16] MEDS ORDERED: IBLOOD GLUCOSE TEST STRIP 1 EA TEST VI SCH (20:00)
[2024-05-16] MEDS ORDERED: INSULIN LISPRO 100 UNIT/ML ML SUB-Q SCH (20:00)
[2024-05-16] MEDS ORDERED: DULOXETINE HCL 60 MG CAP PO SCH (21:00)
[2024-05-16] MEDS ORDERED: buPROPion HCL 150 MG TABCR PO SCH (21:00)
[2024-05-17] VITALS (10 sets, daily range): BP systolic 145–166; BP diastolic 83–102
[2024-05-17 05:39] LABS: BASOPHILS 0.2 % (0-2); EOSINOPHILS 3.8 % (0-6); HEMATOCRIT 42.1 % (35.0-50.0); HEMOGLOBIN 14.2 g/dL (12.0-18.0); LYMPHOCYTES 17.9 % (24-44); MCH 31.1 (27-36); MCHC 33.8 g/dl (30-36); MCV 92.1 fl (81-99); MONOCYTES 13.3 % (0-12); NEUTROPHILS 64.8 % (39-80); PLATELET COUNT 123 K/uL (140-440); RBC 4.58 M/ul (4.3-5.7); RDW 14.5 (10.5-15.0)
[2024-05-17 05:48] LABS: ANION GAP 13.4 (7-21); BUN/CREATININE RATIO 7.63 (6.0-28.6); CALCIUM 8.8 mg/dL (8.5-10.1); CREATININE, SERUM 1.44 mg/dL (0.70-1.30); MAGNESIUM 1.9 mg/dL (1.8-2.4); POTASSIUM 3.4 mmol/L (3.5-5.1)
[2024-05-17] MEDS ORDERED: POTASSIUM CHLORIDE 40 MEQ,LIDOCAINE HCL 1% 40 MG in DEXTROSE 5% 250 ML IV ONE (08:00)
[2024-05-17] MEDS ORDERED: carvediloL 3.125 MG TAB PO SCH (09:00)
[2024-05-17] MEDS ORDERED: SCOPOLAMINE 1 MG/3 DAYS PATCH 1 EACH TDSY TD SCH (10:00)
[2024-05-17] MEDS ORDERED: ACETAMINOPHEN 1,000 MG/100 ML VIAL IV PRN (10:45)
[2024-05-17] MEDS ORDERED: ENOXAPARIN SODIUM 120 MG/0.8 ML SYR SUB-Q SCH (12:58)
[2024-05-17] MEDS ORDERED: METOPROLOL TARTRATE 5 MG/5 ML VIAL IV SCH (14:00)
[2024-05-17] MEDS ORDERED: LABETALOL HCL 20 MG/4 ML VIAL IV SCH (17:30)
[2024-05-18] VITALS (11 sets, daily range): BP systolic 114–163; BP diastolic 83–103
[2024-05-18 05:12] LABS: HEMATOCRIT 44.1 % (35.0-50.0); MCHC 33.9 g/dl (30-36)
[2024-05-18 05:16] LABS: BASOPHILS 0.4 % (0-2); LYMPHOCYTES 16.2 % (24-44); MCH 31.4 (27-36); MCV 92.5 fl (81-99); MONOCYTES 10.4 % (0-12); PLATELET COUNT 123 K/uL (140-440); RBC 4.77 M/ul (4.3-5.7); RDW 14.9 (10.5-15.0)
[2024-05-18 05:25] LABS: INR 1.05 (0.80-1.30); PROTIME 13.6 Sec (11.2-14.2)
[2024-05-18 05:32] LABS: ALBUMIN 3.4 g/dL (3.4-5.0); ALBUMIN/GLOBULIN RATIO 0.76 (1.1-2.4); ANION GAP 15.4 (7-21); BILIRUBIN, TOTAL 1.4 mg/dL (0.2-1.0); BUN/CREATININE RATIO 7.63 (6.0-28.6); CREATININE, SERUM 1.31 mg/dL (0.70-1.30); MAGNESIUM 1.8 mg/dL (1.8-2.4); POTASSIUM 3.4 mmol/L (3.5-5.1); PROTEIN, TOTAL 7.9 g/dL (6.4-8.2)
[2024-05-18] MEDS ORDERED: NITROGLYCERIN 0.4 MG SUBL SL PRN (07:30)
[2024-05-18] MEDS ORDERED: MORPHINE SULFATE 4 MG/ML VIAL IV PRN (07:45)
[2024-05-19] VITALS (13 sets, daily range): BP systolic 139–174; BP diastolic 85–107
[2024-05-19 05:30] LABS: BASOPHILS 0.3 % (0-2); EOSINOPHILS 3.3 % (0-6); HEMATOCRIT 41.6 % (35.0-50.0); HEMOGLOBIN 14.4 g/dL (12.0-18.0); LYMPHOCYTES 18.3 % (24-44); MCH 31.9 (27-36); MCHC 34.7 g/dl (30-36); MCV 91.8 fl (81-99); MONOCYTES 10.2 % (0-12); NEUTROPHILS 67.9 % (39-80); PLATELET COUNT 119 K/uL (140-440); RBC 4.53 M/ul (4.3-5.7); RDW 14.4 (10.5-15.0)
[2024-05-19 05:41] LABS: ANION GAP 13.4 (7-21); BUN/CREATININE RATIO 7.51 (6.0-28.6); CALCIUM 8.8 mg/dL (8.5-10.1); CREATININE, SERUM 1.33 mg/dL (0.70-1.30); MAGNESIUM 1.8 mg/dL (1.8-2.4); POTASSIUM 3.4 mmol/L (3.5-5.1)
[2024-05-19] MEDS ORDERED: DEXTROSE 5% - NACL 0.45% 1,000 ML IV SCH (08:15)
[2024-05-19] MEDS ORDERED: POTASSIUM CHLORIDE 40 MEQ in DEXTROSE 5% 250 ML IV ONE (09:15)
[2024-05-19] MEDS ORDERED: HYDROCORTISONE 1% 30 GM TUBE TOP PRN (12:30)
[2024-05-19] MEDS ORDERED: NYSTATIN 500,000 UNITS/5 ML CUP PO SCH (13:00)
[2024-05-19] MEDS ORDERED: ACETAMINOPHEN 1,000 MG/100 ML VIAL IV PRN (13:15)
[2024-05-20] VITALS (11 sets, daily range): BP systolic 133–173; BP diastolic 86–116
[2024-05-20 05:55] LABS: BASOPHILS 0.5 % (0-2); EOSINOPHILS 4.6 % (0-6); HEMATOCRIT 43.5 % (35.0-50.0); HEMOGLOBIN 14.9 g/dL (12.0-18.0); LYMPHOCYTES 20.4 % (24-44); MCH 31.6 (27-36); MCHC 34.2 g/dl (30-36); MCV 92.5 fl (81-99); MONOCYTES 16.3 % (0-12); NEUTROPHILS 58.2 % (39-80); PLATELET COUNT 106 K/uL (140-440); RDW 15.3 (10.5-15.0)
[2024-05-20 06:15] LABS: ANION GAP 11.1 (7-21); BUN/CREATININE RATIO 6.38 (6.0-28.6); CREATININE, SERUM 1.41 mg/dL (0.70-1.30); POTASSIUM 3.1 mmol/L (3.5-5.1)
[2024-05-20] MEDS ORDERED: POTASSIUM CHLORIDE 40 MEQ in DEXTROSE 5% 250 ML IV ONE ×3 (08:00→19:15)
[2024-05-20] MEDS ORDERED: fentaNYL citrate 100 MCG/2 ML VIAL IV PRN ×2 (08:15→22:15)
[2024-05-20] MEDS ORDERED: hydrALAZINE HCL 20 MG/ML VIAL IV PRN (08:15)
[2024-05-20] MEDS ORDERED: ENOXAPARIN SODIUM 40 MG/0.4 ML SYR SUB-Q SCH (09:00)
[2024-05-20] MEDS ORDERED: MORPHINE SULFATE 4 MG/ML VIAL IV PRN (09:15)
[2024-05-20 18:45] LABS: ANION GAP 13.6 (7-21); BUN/CREATININE RATIO 6.2 (6.0-28.6); CALCIUM 8.9 mg/dL (8.5-10.1); CREATININE, SERUM 1.29 mg/dL (0.70-1.30); POTASSIUM 3.6 mmol/L (3.5-5.1)
--- NOTE | 2024-05-20 19:38 | EKG ---
[facility] [address] [facility] [place] [address] Signed Normal sinus rhythm Nonspecific intraventricular conduction delay Borderline ECG When compared with ECG of 15-MAY-2024 11:04, Criteria for Inferior infarct are no longer present Confirmed by Cait Foley MD ([id number]) on 05/20/2024 7:38:16 PM Electronically Signed By: CAIT FOLEY MD 05/20/24 193 PATIENT NAME: MAGALYS HILLIARD Electrocardiogram DATE OF : 59 PHYSICIAN: CAIT FOLEY MD REPORT #: [id number] REPORT IS CONFIDENTIAL AND NOT TO BE RELEASED WITHOUT AUTHORIZATION
[2024-05-20] MEDS ORDERED: POTASSIUM CHLORIDE 10 MEQ/100 ML BAG IV SCH (21:00)
[2024-05-20] MEDS ORDERED: ACETAMINOPHEN 650 MG SUPP PR PRN (21:30)
[2024-05-20] MEDS ORDERED: LORazepam 2 MG/ML VIAL IV PRN (22:15)
[2024-05-21] VITALS (11 sets, daily range): BP systolic 144–168; BP diastolic 87–105
[2024-05-21 05:55] LABS: BASOPHILS 0.5 % (0-2); EOSINOPHILS 4.5 % (0-6); HEMATOCRIT 42.5 % (35.0-50.0); HEMOGLOBIN 14.4 g/dL (12.0-18.0); MCH 31.4 (27-36); MCHC 33.9 g/dl (30-36); MCV 92.6 fl (81-99); MONOCYTES 13.7 % (0-12); NEUTROPHILS 63.3 % (39-80); PLATELET COUNT 112 K/uL (140-440); RBC 4.59 M/ul (4.3-5.7); RDW 15.2 (10.5-15.0)
[2024-05-21 06:12] LABS: ANION GAP 11.3 (7-21); BUN/CREATININE RATIO 5.34 (6.0-28.6); CREATININE, SERUM 1.31 mg/dL (0.70-1.30); MAGNESIUM 1.9 mg/dL (1.8-2.4); PHOSPHORUS, INORGANIC 2.8 mg/dL (2.5-4.9); POTASSIUM 3.3 mmol/L (3.5-5.1)
[2024-05-21] MEDS ORDERED: POTASSIUM CHLORIDE 40 MEQ in DEXTROSE 5% 250 ML IV ONE (08:00)
[2024-05-22] VITALS (13 sets, daily range): BP systolic 134–166; BP diastolic 79–104
[2024-05-22 05:37] LABS: BASOPHILS 0.5 % (0-2); EOSINOPHILS 5.8 % (0-6); HEMATOCRIT 41.5 % (35.0-50.0); HEMOGLOBIN 14.3 g/dL (12.0-18.0); LYMPHOCYTES 20.6 % (24-44); MCH 31.6 (27-36); MCHC 34.6 g/dl (30-36); MCV 91.6 fl (81-99); NEUTROPHILS 61.1 % (39-80); PLATELET COUNT 118 K/uL (140-440); RBC 4.53 M/ul (4.3-5.7); RDW 15.1 (10.5-15.0)
[2024-05-22 05:53] LABS: BUN/CREATININE RATIO 6.4 (6.0-28.6); CALCIUM 8.9 mg/dL (8.5-10.1); CREATININE, SERUM 1.25 mg/dL (0.70-1.30); MAGNESIUM 1.7 mg/dL (1.8-2.4); PHOSPHORUS, INORGANIC 3.1 mg/dL (2.5-4.9)
--- NOTE | 2024-05-22 06:08 | CONS ---
[facility] [address] [place], [place] [address] Signed DATE OF CONSULTATION: 05/21/2024 CHIEF COMPLAINT: Stroke. HISTORY OF PRESENT ILLNESS: Vladimir is a 68-year-old gentleman with a history of CADASIL disease diagnosed in 2006. He has been suffering with recurrent TIAs and strokes. More recently, he was brought into the emergency room and appeared to have had a stroke. He was evaluated and admitted to our Internal Medicine Service. He has been able to eat or drink in a week. He controls his saliva, but does not seem to be able to swallow any water and he flunked his speech about earlier today. Consequently, I have been asked to see him as a local general surgeon to consider a PEG tube placement. His is his power of criminal attorney and she is with him as well. In addition, his niece is one of our preop nurses. She is also present today for the conversation. PAST MEDICAL HISTORY: 1. TIAs. 2. Diabetes. 3. Pneumonia. 4. Hypertension. 5. Vertigo. 6. Nephrolithiasis. 7. CADASIL disease. 8. UT in 2022. PAST SURGICAL HISTORY: Includes: 1. Appendectomy. 2. Right knee surgery. 3. Right shoulder surgery. SOCIAL HISTORY: No longer smokes. He does not drink. He lives with his , Angeline in [place], [place] at [phone]. He is a DNR/DNI, but has declined heroic measures. FAMILY HISTORY: None. REVIEW OF SYSTEMS: None. ALLERGIES: Electronically Signed By: LESLIE ARGUELLO MD 05/22/24 0608 PATIENT NAME: VLADIMIR HILLIARD CONSULTATION DATE OF : 59 REPORT #: [id number] PHYSICIAN: LESLIE ARGUELLO MD PCP: AIDE FELTON REPORT IS CONFIDENTIAL AND NOT TO BE RELEASED WITHOUT AUTHORIZATION [facility] [address] [place], [place] [address] Signed Codeine and hydrocodone. MEDICATIONS: 1. Amlodipine. 2. Reglan. 3. Aspirin. 4. Scopolamine. 5. Flomax. 6. Potassium. 7. Prednisone. 8. Lorazepam. 9. Meclizine. 10. Promethazine. 11. Metformin. 12. Valsartan. 13. Gabapentin. 14. Duloxetine. 15. Plavix. 16. Bupropion. 17. Benzonatate. 18. Rosuvastatin. 19. Lisinopril. 20. Carvedilol. PHYSICAL EXAMINATION: VITAL SIGNS: Blood pressure is 154/96, heart rate 82, respiratory rate 16, temperature is 98.3, 96% on room air. He is 6 feet 1 inch tall and 120 kg with a body mass index of 37. GENERAL: Vladimir is a 68-year-old gentleman, who is lying supine semi-recumbent in his hospital bed. He is aphasic, but he does understand the questions and he does nod appropriately. His is at the bedside along with his niece. LUNGS: Clear to auscultation bilaterally. HEART: Regular rate and rhythm without murmurs. ABDOMEN: Moderately protuberant, but soft. LABORATORY DATA: White blood count 4.8, hemoglobin 14, neutrophils 63, platelets 112, creatinine 1.3, glucose 126. 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 Unfortunate on this occasion, he has been left with dysphagia and aphasia and has not been able to eat for Electronically Signed By: LESLIE ARGUELLO MD 05/22/24 0608 PATIENT NAME: VLADIMIR HILLIARD CONSULTATION DATE OF : 59 REPORT #: [id number] PHYSICIAN: LESLIE ARGUELLO MD PCP: AIDE FELTON REPORT IS CONFIDENTIAL AND NOT TO BE RELEASED WITHOUT AUTHORIZATION [facility] [address] [place], [place] [address] Signed about a week. He has not been able to take his medications. After several days of discussion with his family, they have all agreed and they would like to proceed with a percutaneous endoscopic gastrostomy tube placement. I have reviewed that in detail. There is risk including, but not limited to bleeding, infection, scarring, change in contour of the skin as well as other unforeseen comorbidities. They have expressed understanding and would like to proceed tomorrow. Leslie Arguello MD ALB/MODL /[id number] cc: Leslie Arguello MD Copies: LESLIE ARGUELLO MD ~ Electronically Signed By: LESLIE ARGUELLO MD 05/22/24 0608 PATIENT NAME: VLADIMIR HILLIARD CONSULTATION DATE OF : 59 REPORT #: [id number] PHYSICIAN: LESLIE ARGUELLO MD PCP: AIDE FELTON REPORT IS CONFIDENTIAL AND NOT TO BE RELEASED WITHOUT AUTHORIZATION
[2024-05-22] MEDS ORDERED: POTASSIUM CHLORIDE 40 MEQ in DEXTROSE 5% 250 ML IV ONE ×3 (08:00→18:00)
[2024-05-22] MEDS ORDERED: MAGNESIUM SULFATE 2 GM/50 ML BAG IV SCH (08:00)
[2024-05-22] MEDS ORDERED: LIDOCAINE HCL 2% 5 ML SDV ONE (10:20)
[2024-05-22] MEDS ORDERED: propofoL 200 MG/20 ML VIAL ONE ×3 (10:20→10:41)
[2024-05-22] MEDS ORDERED: MAGNESIUM SULFATE 2 GM/50 ML BAG IV ONE (13:00)
[2024-05-22] MEDS ORDERED: HYDROmorphone HCL 1 MG/ML SYR IV PRN (17:00)
[2024-05-22] MEDS ORDERED: fentaNYL citrate 100 MCG/2 ML VIAL IV PRN (17:00)
[2024-05-22] MEDS ORDERED: ALBUTEROL SULFATE 0.083% 3 ML VIAL INH PRN (18:45)
[2024-05-23] VITALS (13 sets, daily range): BP systolic 153–184; BP diastolic 77–105
[2024-05-23 05:40] LABS: BASOPHILS 0.2 % (0-2); EOSINOPHILS 1.9 % (0-6); HEMATOCRIT 42.3 % (35.0-50.0); HEMOGLOBIN 14.5 g/dL (12.0-18.0); LYMPHOCYTES 7.9 % (24-44); MCH 31.5 (27-36); MCHC 34.3 g/dl (30-36); MCV 91.8 fl (81-99); MONOCYTES 9.7 % (0-12); NEUTROPHILS 80.3 % (39-80); PLATELET COUNT 120 K/uL (140-440); RBC 4.61 M/ul (4.3-5.7); RDW 15.2 (10.5-15.0)
[2024-05-23 05:57] LABS: ANION GAP 11.5 (7-21); BUN/CREATININE RATIO 5.73 (6.0-28.6); CALCIUM 8.8 mg/dL (8.5-10.1); CREATININE, SERUM 1.22 mg/dL (0.70-1.30); PHOSPHORUS, INORGANIC 3.4 mg/dL (2.5-4.9); POTASSIUM 3.5 mmol/L (3.5-5.1)
[2024-05-23] MEDS ORDERED: POTASSIUM CHLORIDE 40 MEQ in DEXTROSE 5% 250 ML IV ONE (07:45)
--- NOTE | 2024-05-23 08:19 | OR ---
[facility] [address] [place], [place] [address] Signed DATE OF OPERATION: 05/22/2024 SURGEON: Leslie Polanco MD PREOPERATIVE DIAGNOSES: 1. Stroke. 2. Oropharyngeal dysphagia. POSTOPERATIVE DIAGNOSES: 1. Stroke. 2. Oropharyngeal dysphagia. PROCEDURES: Esophagogastroduodenoscopy with placement of PEG tube. ESTIMATED BLOOD LOSS: None. INDICATIONS: Vladimir is a 68-year-old gentleman, who was diagnosed with CADASIL syndrome in 2006. He has been suffering with recurrent TIAs and now more significant stroke. He has been in the hospital under our medical service. He did not do well with his speech therapy evaluation. Vladimir and his family decided they wanted to undergo placement of a PEG tube for nutritional and medical support. I had reviewed the idea of upper endoscopy with a PEG tube with Vladimir and his family in detail. There is risk including, but not limited to bleeding, infection, scarring, change in contour of the skin as well as other unforeseen comorbidities. They had expressed understanding and wished to proceed. PROCEDURE IN DETAIL: Vladimir was taken into the operating room and placed in the supine position under monitored anesthesia care. A bite block was utilized. The adult gastroscope was introduced and advanced under direct visualization of camera. The duodenum, pyloric channel, and stomach were unremarkable. We found a spot just below the left costal margin that we palpated and directly visualized inside the stomach. Local anesthetic was injected in the abdominal wall. A small any was made and our needle was advanced. He is a large man with a body mass index of 37. It took just a little minute to get the needles into the stomach, and we passed a wire without difficulty. We grabbed the wire with the snare and brought it out through the oropharynx. We then straightened out the wire and passed the lubricated PEG tube down the wire through the oropharynx and into the stomach and up against the abdominal wall. He has about 8 cm thick on the abdominal Electronically Signed By: LESLIE POLANCO MD 05/23/24 0819 PATIENT NAME: VLADIMIR HILLIARD OPERATIVE REPORT DATE OF : 59 REPORT #: [id number] PHYSICIAN: LESLIE POLANCO MD PCP: MAEGAN FELTON REPORT IS CONFIDENTIAL AND NOT TO BE RELEASED WITHOUT AUTHORIZATION [facility] [address] [place] [id number] Signed wall based on the PEG tube. The bolster was placed over the PEG tube and then held circumferentially with three interrupted 0-nylon sutures. The PEG tube catheter was then cut to length and the Y connector placed on the end. The adult gastroscope was introduced back into the stomach and we confirmed position of the PEG tube. Pictures were taken throughout for photodocumentation. After this, the gas was suctioned out. The adult gastroscope was withdrawn. Vladimir tolerated the procedure well. RECOMMENDATIONS: Vladimir will be returned to his hospital room. We have consulted our Dietary service for recommendations regarding his gastric bolus feeds. Leslie Polanco MD ALB/MODL /[id number] cc: Patient Chart MD Maegan Curtis PA Copies: LESLIE POLANCO MD, LINDA PA ~ Electronically Signed By: LESLIE POLANCO MD 05/23/24 0819 PATIENT NAME: VLADIMIR HILLIARD OPERATIVE REPORT DATE OF : 59 REPORT #: [id number] PHYSICIAN: LESLIE POLANCO MD PCP: MAEGAN FELTON REPORT IS CONFIDENTIAL AND NOT TO BE RELEASED WITHOUT AUTHORIZATION
[2024-05-23] MEDS ORDERED: buPROPion HCL 75 MG TAB PT SCH (09:00)
[2024-05-23] MEDS ORDERED: MELATONIN 3 MG TAB PT PRN (09:00)
[2024-05-23] MEDS ORDERED: GABAPENTIN 300 MG CAP PT SCH (09:00)
[2024-05-23] MEDS ORDERED: SCOPOLAMINE 1 MG/3 DAYS PATCH 1 EACH TDSY TD SCH (09:00)
[2024-05-23] MEDS ORDERED: HYDROmorphone HCL 4 MG TAB PT PRN (10:00)
[2024-05-23 10:08] LABS: CHOLESTEROL/HDL RATIO 3.2
[2024-05-23 10:19] LABS: INR 1.07 (0.80-1.30); PARTIAL THROMBOPLASTIN TIME 30.2 Sec (22.9-41.3); PROTIME 13.8 Sec (11.2-14.2)
[2024-05-23 10:23] LABS: ALBUMIN/GLOBULIN RATIO 0.65 (1.1-2.4); ANION GAP 10.7 (7-21); BILIRUBIN, TOTAL 1.4 mg/dL (0.2-1.0); BUN/CREATININE RATIO 6.89 (6.0-28.6); CALCIUM 8.7 mg/dL (8.5-10.1); CREATININE, SERUM 1.16 mg/dL (0.70-1.30); POTASSIUM 3.7 mmol/L (3.5-5.1); PROTEIN, TOTAL 7.6 g/dL (6.4-8.2)
[2024-05-23] MEDS ORDERED: FLUCONAZOLE 200 MG TAB PO ONE (13:00)
[2024-05-23] MEDS ORDERED: ATORVASTATIN 40 MG TAB PT SCH (17:00)
[2024-05-23] MEDS ORDERED: carvediloL 3.125 MG TAB PT SCH (21:00)
[2024-05-23] MEDS ORDERED: DULOXETINE HCL 60 MG CAP PT SCH (21:00)
[2024-05-23] MEDS ORDERED: PANTOPRAZOLE SODIUM 40 MG/10 ML VIAL IV SCH (21:00)
[2024-05-23] MEDS ORDERED: NON-FORMULARY MEDICATION ORDER GT SCH (21:00)
[2024-05-23] MEDS ORDERED: TAMSULOSIN HCL 0.4 MG CAP PT SCH (21:00)
[2024-05-24] VITALS (12 sets, daily range): BP systolic 15–155; BP diastolic 82–101
[2024-05-24 05:27] LABS: BASOPHILS 0.3 % (0-2); EOSINOPHILS 1.5 % (0-6); HEMATOCRIT 42.2 % (35.0-50.0); HEMOGLOBIN 14.4 g/dL (12.0-18.0); LYMPHOCYTES 9.4 % (24-44); MCH 31.5 (27-36); MCHC 34.1 g/dl (30-36); MCV 92.4 fl (81-99); MONOCYTES 12.4 % (0-12); NEUTROPHILS 76.4 % (39-80); PLATELET COUNT 143 K/uL (140-440); RBC 4.57 M/ul (4.3-5.7); RDW 15.1 (10.5-15.0)
[2024-05-24 05:43] LABS: MAGNESIUM 2.1 mg/dL (1.8-2.4); PHOSPHORUS, INORGANIC 3.9 mg/dL (2.5-4.9)
[2024-05-24 05:46] LABS: ALBUMIN 2.9 g/dL (3.4-5.0); ALBUMIN/GLOBULIN RATIO 0.6 (1.1-2.4); ANION GAP 14.6 (7-21); BILIRUBIN, TOTAL 1.5 mg/dL (0.2-1.0); BUN/CREATININE RATIO 7.48 (6.0-28.6); CALCIUM 9.3 mg/dL (8.5-10.1); CREATININE, SERUM 1.47 mg/dL (0.70-1.30); POTASSIUM 3.6 mmol/L (3.5-5.1); PROTEIN, TOTAL 7.7 g/dL (6.4-8.2)
[2024-05-24] MEDS ORDERED: PANTOPRAZOLE SODIUM 40 MG TABEC PO SCH (09:00)
[2024-05-24] MEDS ORDERED: FLUCONAZOLE 100 MG TAB PO SCH (09:00)
[2024-05-24] MEDS ORDERED: FLUCONAZOLE 100 MG TAB PT SCH (09:00)
[2024-05-24 15:26] LABS: BILIRUBIN, URINE NEGATIVE (negative); BLOOD/HGB, URINE TRACE-I (Negative); KETONE, URINE NEGATIVE (Negative); LEUK ESTERASE, URINE MODERATE (negative); NITRITE, URINE NEGATIVE (negative)
[2024-05-24 15:34] LABS: BACTERIA, URINE 2+ /hpf (negative); CASTS, URINE NONE SEEN \\lpf; COLLECTION TYPE, URINE CLEAN CATCH; CRYSTALS, URINE NONE SEEN (0-1+); EPITHELIAL CELLS, URINE SQUAMOUS 1+ /lpf (0-1+); REFLEX CULTURE, URINE Yes (No); WHITE BLOOD CELLS, URINE >50 /HPF (0-5)
[2024-05-24] MEDS ORDERED: CEFTRIAXONE SODIUM 2 GM in SODIUM CHLORIDE 0.9% 100 ML IV SCH (18:00)
[2024-05-24] MEDS ORDERED: CEFTRIAXONE SODIUM 2 GM VIAL ONE (18:02)
[2024-05-24] MEDS ORDERED: SODIUM CHLORIDE 0.9% 1,000 ML IV SCH (20:00)
[2024-05-24] MEDS ORDERED: carvediloL 6.25 MG TAB PT SCH (21:00)
[2024-05-25] VITALS (9 sets, daily range): BP systolic 124–157; BP diastolic 63–89
[2024-05-25 05:58] LABS: BASOPHILS 0.1 % (0-2); EOSINOPHILS 1.8 % (0-6); HEMATOCRIT 37.7 % (35.0-50.0); HEMOGLOBIN 12.8 g/dL (12.0-18.0); LYMPHOCYTES 8.4 % (24-44); MCH 31.4 (27-36); MCHC 34.1 g/dl (30-36); MCV 92.1 fl (81-99); MONOCYTES 12.2 % (0-12); NEUTROPHILS 77.5 % (39-80); PLATELET COUNT 130 K/uL (140-440); RBC 4.09 M/ul (4.3-5.7); RDW 15.3 (10.5-15.0)
[2024-05-25 06:19] LABS: CHOLESTEROL/HDL RATIO 2.7
[2024-05-25 06:25] LABS: ALBUMIN 2.3 g/dL (3.4-5.0); ALBUMIN/GLOBULIN RATIO 0.51 (1.1-2.4); ANION GAP 13.9 (7-21); BILIRUBIN, TOTAL 1.1 mg/dL (0.2-1.0); BUN/CREATININE RATIO 9.09 (6.0-28.6); CALCIUM 8.9 mg/dL (8.5-10.1); CREATININE, SERUM 1.54 mg/dL (0.70-1.30); POTASSIUM 3.9 mmol/L (3.5-5.1); PROTEIN, TOTAL 6.8 g/dL (6.4-8.2)
[2024-05-25 06:26] LABS: MAGNESIUM 1.9 mg/dL (1.8-2.4); PHOSPHORUS, INORGANIC 3.9 mg/dL (2.5-4.9)
[2024-05-25 06:29] LABS: INR 1.11 (0.80-1.30); PROTIME 14.2 Sec (11.2-14.2)
[2024-05-25 06:37] LABS: PARTIAL THROMBOPLASTIN TIME 33.7 Sec (22.9-41.3)
[2024-05-25] MEDS ORDERED: CEFTRIAXONE SODIUM 2 GM VIAL ONE (08:05)
[2024-05-25] MEDS ORDERED: SODIUM CHLORIDE 0.9% 1,000 ML IV SCH (08:30)
[2024-05-25] MEDS ORDERED: CLOPIDOGREL BISULFATE 75 MG TAB PT SCH (09:00)
[2024-05-25] MEDS ORDERED: ASPIRIN 81 MG CHEW PT SCH (09:00)
[2024-05-25] MEDS ORDERED: LANSOPRAZOLE 30 MG TABDIS PT SCH (21:00)
[2024-05-26] VITALS (9 sets, daily range): BP systolic 140–152; BP diastolic 74–97
[2024-05-26] MEDS ORDERED: NON-FORMULARY MEDICATION ORDER GT SCH (02:00)
[2024-05-26] MEDS ORDERED: [UNRECOGNIZED DRUG - REMARK] GT SCH (02:00)
[2024-05-26 05:34] LABS: BASOPHILS 0.2 % (0-2); EOSINOPHILS 3.6 % (0-6); HEMOGLOBIN 10.7 g/dL (12.0-18.0); MCH 31.6 (27-36); MCHC 34.4 g/dl (30-36); MCV 91.8 fl (81-99); MONOCYTES 10.8 % (0-12); NEUTROPHILS 76.4 % (39-80); PLATELET COUNT 132 K/uL (140-440); RBC 3.38 M/ul (4.3-5.7); RDW 14.5 (10.5-15.0)
[2024-05-26 05:58] LABS: ALBUMIN 2.3 g/dL (3.4-5.0); ALBUMIN/GLOBULIN RATIO 0.55 (1.1-2.4); ANION GAP 13.8 (7-21); BILIRUBIN, TOTAL 0.7 mg/dL (0.2-1.0); BUN/CREATININE RATIO 12.6 (6.0-28.6); CALCIUM 8.8 mg/dL (8.5-10.1); CREATININE, SERUM 1.19 mg/dL (0.70-1.30); MAGNESIUM 1.8 mg/dL (1.8-2.4); PHOSPHORUS, INORGANIC 3.4 mg/dL (2.5-4.9); POTASSIUM 3.8 mmol/L (3.5-5.1); PROTEIN, TOTAL 6.5 g/dL (6.4-8.2)
[2024-05-26] MEDS ORDERED: CEFTRIAXONE SODIUM 2 GM VIAL ONE (08:30)
[2024-05-27 05:31] VITALS: BP 152/84
[2024-05-27 05:32] VITALS: BP 152/84
[2024-05-27 06:00] LABS: BASOPHILS 0.6 % (0-2); EOSINOPHILS 5.5 % (0-6); HEMATOCRIT 32.8 % (35.0-50.0); HEMOGLOBIN 11.2 g/dL (12.0-18.0); LYMPHOCYTES 14.6 % (24-44); MCHC 34.2 g/dl (30-36); MCV 90.8 fl (81-99); MONOCYTES 11.2 % (0-12); NEUTROPHILS 68.1 % (39-80); PLATELET COUNT 158 K/uL (140-440); RBC 3.61 M/ul (4.3-5.7)
[2024-05-27 06:20] LABS: ALBUMIN 2.3 g/dL (3.4-5.0); ALBUMIN/GLOBULIN RATIO 0.53 (1.1-2.4); ANION GAP 13.3 (7-21); BILIRUBIN, TOTAL 0.7 mg/dL (0.2-1.0); BUN/CREATININE RATIO 8.92 (6.0-28.6); CALCIUM 8.5 mg/dL (8.5-10.1); CREATININE, SERUM 1.12 mg/dL (0.70-1.30); MAGNESIUM 1.8 mg/dL (1.8-2.4); PHOSPHORUS, INORGANIC 3.6 mg/dL (2.5-4.9); POTASSIUM 3.3 mmol/L (3.5-5.1); PROTEIN, TOTAL 6.6 g/dL (6.4-8.2)
[2024-05-27] MEDS ORDERED: CEFTRIAXONE SODIUM 2 GM VIAL ONE (08:40)
[2024-05-27] MEDS ORDERED: POTASSIUM CHLORIDE 20 MEQ/15 ML CUP PT ONE (09:15)
[2024-05-27] MEDS ORDERED: AMOX TR-K CLV1 EAC1 PT (09:23)
[2024-05-27] MEDS ORDERED: ASPIRIN81 MG PT (09:24)
[2024-05-27] MEDS ORDERED: CARVEDILOL6.25 MG PT (09:24)
[2024-05-27] MEDS ORDERED: GABAPENTIN300 MG PT (09:26)
[2024-05-27] MEDS ORDERED: LIPITOR40 MG PT (09:26)
[2024-05-27] MEDS ORDERED: BUPROPION HCL75 MG PT (09:27)
[2024-05-27] MEDS ORDERED: DULOXETINE HCL60 MG PT (09:27)
[2024-05-27] MEDS ORDERED: PREVACID30 MG PT (09:28)
[2024-05-27] MEDS ORDERED: FLUCONAZOLE100 MG PT (09:38)
[2024-05-27 10:32] VITALS: BP 148/81
== END 2024-05-27 11:20 | DRG 65 ==
LOC: ED 10:47 → MS 16:01
PROVIDERS: Colon & Rectal Surgery; Emergency Medicine; Family Medicine; Student in an Organized Health Care Education/Training Program; ADMIT Student in an Organized Health Care Education/Training Program; ATTEND Student in an Organized Health Care Education/Training Program
PROC: 3E0G76Z Introduction of Nutritional Substance into Upper GI, Via Natural or Artificial Opening (ICD-10-PCS; 2024-05-22)
PROC: 0DH63UZ Insertion of Feeding Device into Stomach, Percutaneous Approach (ICD-10-PCS; principal; 2024-05-22 09:00)
DX: I63.89 Other cerebral infarction (principal); G81.91 Hemiplegia, unspecified affecting right dominant side; N39.0 Urinary tract infection, site not specified; N17.9 Acute kidney failure, unspecified; Z66 Do not resuscitate; I10 Essential (primary) hypertension; Z96.651 Presence of right artificial knee joint; G47.33 Obstructive sleep apnea (adult) (pediatric); Z96.611 Presence of right artificial shoulder joint; I67.850 Cerebral autosomal dominant 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; N40.0 Benign prostatic hyperplasia without lower urinary tract symptoms; E11.40 Type 2 diabetes mellitus with diabetic neuropathy, unspecified; F32.9 Major depressive disorder, single episode, unspecified; E86.0 Dehydration; R47.01 Aphasia; F01.50 Vascular dementia, unspecified severity, without behavioral disturbance, psychotic disturbance, mood disturbance, and anxiety; R13.10 Dysphagia, unspecified; R07.9 Chest pain, unspecified; E87.6 Hypokalemia; E83.42 Hypomagnesemia; E66.9 Obesity, unspecified; B96.89 Other specified bacterial agents as the cause of diseases classified elsewhere; Z88.5 Allergy status to narcotic agent; Z79.899 Other long term (current) drug therapy; Z98.890 Other specified postprocedural states; Z79.84 Long term (current) use of oral hypoglycemic drugs; Z87.442 Personal history of urinary calculi; I25.2 Old myocardial infarction; Z87.891 Personal history of nicotine dependence; Z90.49 Acquired absence of other specified parts of digestive tract; Z79.811 Long term (current) use of aromatase inhibitors; Z79.52 Long term (current) use of systemic steroids; Z79.82 Long term (current) use of aspirin; Z87.01 Personal history of pneumonia (recurrent); Z68.37 Body mass index [BMI] 37.0-37.9, adult
CPT/HCPCS: 00813; 36415; 70450; 70553; 71045; 71275; 73590; 74174; 80048; 80053; 80061; 81001; 83036; 83735; 84100; 84134; 84484; 85025; 85610; 85730; 87088; 92526; 92610; 93005; 93010; 93880; 94640; 94762; 97110; 97112; 97163; 97167; 99285-25; A9270; A9577; J0131; J0696; J1171; J1650; J1815; J2003; J2060; J2270; J2405; J2470; J2704; J3010; J3475; J3480; J3490; J7030; J7042; J7060; J7121; Q9967

== ENCOUNTER 2024-05-28 09:34 | Emergency (ER) | payer MEDICARE, OTHER ==
[~2024-05-28] VITALS: Ht 185.4 cm; Wt 128.5 kg
[~2024-05-28 09:34] MED LIST changes: +AMOX TR-K CLV1 EAC1 PT; +ASPIRIN81 MG PT; +BUPROPION HCL150 M2 PO; +BUPROPION HCL75 MG PT; +CARVEDILOL6.25 MG PT; +CLOPIDOGREL75 MG PT; +DULOXETINE HCL60 MG PO; +DULOXETINE HCL60 MG PT; +FLUCONAZOLE100 MG PT; +GABAPENTIN300 MG PO; +GABAPENTIN300 MG PT; +LIPITOR40 MG PT; +METFORMIN HCL500 MG PT; +OMEPRAZOLE20 MG PO; +POTASSIUM CHLO10 ME1 PT; +PREDNISONE10 MG PO; +PREVACID30 MG PT; +VALSARTAN40 MG PT; +VENTOLIN HFA18 GM INH; +ZYRTEC10 MG PT
--- OUTSIDE RECORDS SUMMARY | 2024-05-28 09:40 | XMS ---
PreManage Notification: MAGALYS HILLIARD Security Windows Desktop Engineer Events No recent Security Events currently on file CRITERIA MET - [facility] - 2 Visits in 30 Days CARE PROVIDERS TOM PEREA Nurse Practitioner: Family Current PHONE: [phone] NURIS DURÁN Physician Emergency Response Technician Vidhya CASTAÑEDA PHONE: [phone] MIAN CAI Nurse Practitioner: Adult Health Vidhya CHELSEA PHONE: [phone] ANTHONY WILL Family Medicine Current PHONE: Unknown Dina has no Care Guidelines for this patient. Yohannes VISIT COUNT (12 MO.) 2 KONG Streeter TOTAL 2 NOTE: Visits indicate total known visits. ED/UCC VISIT TRACKING (12 MO.) 05/28/2024 09:34 [facility] [place] TYPE: Emergency COMPLAINT: - COUGHING UP BLOOD 05/15/2024 10:47 [facility] [place] TYPE: Emergency INPATIENT VISIT TRACKING (12 MO.) 05/15/2024 16:01 [facility] [place] TYPE: Medical Surgical COMPLAINT: - ACUTE STROKE DIAGNOSES: - Acquired absence of other specified parts of digestive tract - Acquired absence of other specified parts of digestive tract - Acute kidney failure, unspecified - Acute kidney failure, unspecified - Allergy status to narcotic agent - Allergy status to narcotic agent - Aphasia - Aphasia - Benign prostatic hyperplasia without lower urinary tract symptoms - Benign prostatic hyperplasia without lower urinary tract symptoms - Body mass index [BMI] 37.0-37.9, adult - Body mass index [BMI] 37.0-37.9, adult - Cerebral autosomal dominant 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 - Cerebral autosomal dominant 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 - Chest pain, unspecified - Chest pain, unspecified - Dehydration - Dehydration - Do not resuscitate - Do not resuscitate - Dysphagia, unspecified - Dysphagia, unspecified - Essential (primary) hypertension - Essential (primary) hypertension - Hemiplegia, unspecified affecting right dominant side - Hemiplegia, unspecified affecting right dominant side - Hypokalemia - Hypokalemia - Hypomagnesemia - Hypomagnesemia - senior living (current) use of aromatase inhibitors - rat exterminator (current) use of aromatase inhibitors - senior living (current) use of aspirin - rat exterminator (current) use of aspirin - rat exterminator (current) use of oral hypoglycemic drugs - rat exterminator (current) use of oral hypoglycemic drugs - senior living (current) use of systemic steroids - senior living (current) use of systemic steroids - Major depressive disorder, single episode, unspecified - Major depressive disorder, single episode, unspecified - Obesity, unspecified - Obesity, unspecified - Obstructive sleep apnea (adult) (pediatric) - Obstructive sleep apnea (adult) (pediatric) - Old myocardial infarction - Old myocardial infarction - Other cerebral infarction - Other cerebral infarction - Other mcc (current) drug therapy - Other mcc (current) drug therapy - Other specified bacterial agents as the cause of diseases classified elsewhere - Other specified bacterial agents as the cause of diseases classified elsewhere - Other specified postprocedural states - Other specified postprocedural states - Personal history of nicotine dependence - Personal history of nicotine dependence - Personal history of pneumonia (recurrent) - Personal history of pneumonia (recurrent) - Personal history of urinary calculi - Personal history of urinary calculi - Presence of right artificial knee joint - Presence of right artificial knee joint - Presence of right artificial shoulder joint - Presence of right artificial shoulder joint - Type 2 diabetes mellitus with diabetic neuropathy, unspecified - Type 2 diabetes mellitus with diabetic neuropathy, unspecified - Urinary tract infection, site not specified - Urinary tract infection, site not specified - Vascular dementia, unspecified severity, without behavioral disturbance, psychotic disturbance, mood disturbance, and anxiety - Vascular dementia, unspecified severity, without behavioral disturbance, psychotic disturbance, mood disturbance, and anxiety - Weakness [email or web address]
[2024-05-28 10:07] LABS: BASOPHILS 0.5 % (0-2); EOSINOPHILS 3.2 % (0-6); HEMATOCRIT 35.5 % (35.0-50.0); HEMOGLOBIN 12.1 g/dL (12.0-18.0); LYMPHOCYTES 10.6 % (24-44); MCHC 34.2 g/dl (30-36); MCV 90.9 fl (81-99); MONOCYTES 13.1 % (0-12); NEUTROPHILS 72.6 % (39-80); PLATELET COUNT 197 K/uL (140-440); RDW 14.8 (10.5-15.0)
[2024-05-28 10:25] LABS: INR 1.05 (0.80-1.30); PROTIME 13.6 Sec (11.2-14.2)
[2024-05-28 10:26] LABS: ALBUMIN 2.7 g/dL (3.4-5.0); ALBUMIN/GLOBULIN RATIO 0.59 (1.1-2.4); ANION GAP 12.5 (7-21); BILIRUBIN, TOTAL 0.7 mg/dL (0.2-1.0); BUN/CREATININE RATIO 12.39 (6.0-28.6); CALCIUM 9.1 mg/dL (8.5-10.1); CREATININE, SERUM 1.21 mg/dL (0.70-1.30); POTASSIUM 3.5 mmol/L (3.5-5.1); PROTEIN, TOTAL 7.3 g/dL (6.4-8.2)
[2024-05-28] MEDS ORDERED: FAMOTIDINE 20 MG TAB PO ONE (10:30)
[2024-05-28] MEDS ORDERED: PANTOPRAZOLE SODIUM 40 MG TABEC PO ONE (10:30)
[2024-05-28] MEDS ORDERED: CEFTRIAXONE SODIUM 2 GM VIAL ONE (22:21)
[2024-05-28] MEDS ORDERED: SODIUM CHLORIDE 0.9% 100 ML IV ONE (22:22)
[2024-05-28 22:56] LABS: BASOPHILS 0.2 % (0-2); EOSINOPHILS 2.6 % (0-6); HEMATOCRIT 35.1 % (35.0-50.0); LYMPHOCYTES 11.5 % (24-44); MCH 31.2 (27-36); MCHC 34.3 g/dl (30-36); MONOCYTES 14.9 % (0-12); NEUTROPHILS 70.8 % (39-80); PLATELET COUNT 205 K/uL (140-440); RBC 3.85 M/ul (4.3-5.7); RDW 14.8 (10.5-15.0)
[2024-05-28] MEDS ORDERED: DEXTROSE 5% - LACTATED RINGERS 1,000 ML IV SCH (23:00)
[2024-05-29] MEDS ORDERED: PANTOPRAZOLE SODIUM 40 MG/10 ML VIAL IV ONE (00:15)
[2024-05-29] MEDS ORDERED: ACETAMINOPHEN 325 MG TAB PO PRN (00:15)
[2024-05-29] MEDS ORDERED: ondansetron HCL 4 MG/2 ML VIAL IV PRN (00:15)
[2024-05-29] MEDS ORDERED: LORazepam 2 MG/ML VIAL IV PRN (00:15)
[2024-05-29 06:14] LABS: BASOPHILS 0.4 % (0-2); HEMATOCRIT 34.6 % (35.0-50.0); HEMOGLOBIN 11.8 g/dL (12.0-18.0); LYMPHOCYTES 12.7 % (24-44); MCHC 34.1 g/dl (30-36); MCV 90.9 fl (81-99); MONOCYTES 14.7 % (0-12); NEUTROPHILS 69.2 % (39-80); PLATELET COUNT 205 K/uL (140-440); RBC 3.81 M/ul (4.3-5.7); RDW 15.1 (10.5-15.0)
[2024-05-29 06:32] LABS: ALBUMIN 2.6 g/dL (3.4-5.0); ALBUMIN/GLOBULIN RATIO 0.55 (1.1-2.4); ANION GAP 10.7 (7-21); BILIRUBIN, TOTAL 0.8 mg/dL (0.2-1.0); BUN/CREATININE RATIO 11.81 (6.0-28.6); CALCIUM 8.9 mg/dL (8.5-10.1); CREATININE, SERUM 1.27 mg/dL (0.70-1.30); POTASSIUM 3.7 mmol/L (3.5-5.1); PROTEIN, TOTAL 7.3 g/dL (6.4-8.2)
[2024-05-29] MEDS ORDERED: CEFTRIAXONE SODIUM 2 GM in SODIUM CHLORIDE 0.9% 100 ML IV SCH (09:00)
[2024-05-29] MEDS ORDERED: PANTOPRAZOLE SODIUM 40 MG/10 ML VIAL IV SCH (09:00)
[2024-05-29 11:07] VITALS: BP 152/101
== END 2024-05-29 11:07 | disposition home or self-care (01) ==
LOC: ED 09:34
PROVIDERS: Emergency Medicine; Family Medicine
DX: K56.600 Partial intestinal obstruction, unspecified as to cause (principal); K29.70 Gastritis, unspecified, without bleeding; I69.951 Hemiplegia and hemiparesis following unspecified cerebrovascular disease affecting right dominant side; I69.920 Aphasia following unspecified cerebrovascular disease; I10 Essential (primary) hypertension; I25.2 Old myocardial infarction; Z87.891 Personal history of nicotine dependence; Z88.5 Allergy status to narcotic agent; Z79.82 Long term (current) use of aspirin; Z79.84 Long term (current) use of oral hypoglycemic drugs; Z79.899 Other long term (current) drug therapy
CPT/HCPCS: 36415; 51702; 71045; 74018; 74019; 74177; 80053; 85025; 85610; 85730; 99285-25; A9270; J0696; J2060; J2470; J7121; Q9967

== ENCOUNTER 2024-06-05 21:15 | Emergency (ER) | payer MEDICARE, OTHER ==
[~2024-06-05] VITALS: Ht 185.4 cm; Wt 128.5 kg
--- OUTSIDE RECORDS SUMMARY | 2024-06-05 21:19 | XMS ---
PreManage Notification: MAGALYS HILLIARD Security Crab Fisherman Events No recent Security Events currently on file CRITERIA MET - [facility] - 2 Visits in 30 Days CARE PROVIDERS TOM PEREA Nurse Practitioner: Family Current PHONE: [phone] NURIS DURÁN Physician Cns Vidhya CASTAÑEDA PHONE: [phone] MIAN CAI Nurse Practitioner: Adult Health Vidhya BERTHOLD PHONE: [phone] ANTHONY WILL Family Medicine Current PHONE: Unknown Dina has no Care Guidelines for this patient. Yohannes VISIT COUNT (12 MO.) 3 KONG Streeter TOTAL 3 NOTE: Visits indicate total known visits. ED/UCC VISIT TRACKING (12 MO.) 06/05/2024 21:15 [facility] TYPE: Emergency COMPLAINT: - VOMITING 05/28/2024 09:34 [facility] TYPE: Emergency COMPLAINT: - COUGHING UP BLOOD DIAGNOSES: - Allergy status to narcotic agent - Aphasia following unspecified cerebrovascular disease - Essential (primary) hypertension - Gastritis, unspecified, without bleeding - Hemiplegia and hemiparesis following unspecified cerebrovascular disease affecting right dominant side - long term care phlebotomist (current) use of aspirin - group home (current) use of oral hypoglycemic drugs - Old myocardial infarction - Other half-way (current) drug therapy - Partial intestinal obstruction, unspecified as to cause - Personal history of nicotine dependence - Vomiting, unspecified 05/15/2024 10:47 [facility] TYPE: Emergency [...] - Hypokalemia - Hypomagnesemia - Hypomagnesemia - group home (current) use of aromatase inhibitors - long term care phlebotomist (current) use of aromatase inhibitors - group home (current) use of aspirin - long term care phlebotomist (current) use of aspirin - long term care phlebotomist (current) use of oral hypoglycemic drugs - group home (current) use of oral hypoglycemic drugs - long term care phlebotomist (current) use of systemic steroids - group home (current) use of systemic steroids - Major depressive disorder, single episode, unspecified - Major depressive disorder, single episode, unspecified - Obesity, unspecified - Obesity, unspecified - Obstructive sleep apnea (adult) (pediatric) - Obstructive sleep apnea (adult) (pediatric) - Old myocardial infarction - Old myocardial infarction - Other cerebral infarction - Other cerebral infarction - Other half-way (current) drug therapy - Other rn long term care (current) drug therapy - Other specified bacterial [...] disturbance, mood disturbance, and anxiety - Weakness [email or web address]
[2024-06-05 21:42] LABS: BASOPHILS 0.4 % (0-2); EOSINOPHILS 3.4 % (0-6); HEMATOCRIT 39.1 % (35.0-50.0); HEMOGLOBIN 13.1 g/dL (12.0-18.0); LYMPHOCYTES 13.9 % (24-44); MCH 30.6 (27-36); MCHC 33.6 g/dl (30-36); NEUTROPHILS 71.3 % (39-80); PLATELET COUNT 262 K/uL (140-440); RDW 15.2 (10.5-15.0)
[2024-06-05 21:57] LABS: ALBUMIN/GLOBULIN RATIO 0.61 (1.1-2.4); ANION GAP 11.4 (7-21); BILIRUBIN, TOTAL 0.9 mg/dL (0.2-1.0); BUN/CREATININE RATIO 19.11 (6.0-28.6); CALCIUM 9.3 mg/dL (8.5-10.1); CREATININE, SERUM 1.36 mg/dL (0.70-1.30); POTASSIUM 4.4 mmol/L (3.5-5.1); PROTEIN, TOTAL 7.9 g/dL (6.4-8.2)
[2024-06-05 22:15] VITALS: BP 144/95
== END 2024-06-05 22:34 | disposition home or self-care (01) ==
LOC: ED 21:15
PROVIDERS: Emergency Medicine
DX: T17.900A Unspecified foreign body in respiratory tract, part unspecified causing asphyxiation, initial encounter (principal); I10 Essential (primary) hypertension; Z87.891 Personal history of nicotine dependence; Z88.5 Allergy status to narcotic agent; Z79.82 Long term (current) use of aspirin; Z79.899 Other long term (current) drug therapy
CPT/HCPCS: 36415; 71045; 80053; 85025

== ENCOUNTER 2024-06-14 07:53 | Emergency (ER) | payer MEDICARE, OTHER ==
[~2024-06-14] VITALS: Ht 185.4 cm; Wt 120.0 kg
--- OUTSIDE RECORDS SUMMARY | 2024-06-14 08:00 | XMS ---
PreManage Notification: MAGALYS HILLIARD Security Candy Cooker Helper Events No recent Security Events currently on file CRITERIA MET - [facility] - 2 Visits in 30 Days CARE PROVIDERS TOM PEREA Nurse Practitioner: Family Current PHONE: [phone] NURIS DURÁN Physician Soft Sugar Cutter Vidhya CASTAÑEDA PHONE: [phone] MIAN CAI Nurse Practitioner: Adult Health Vidhya PEMBERTON PHONE: [phone] ANTHONY WILL Family Medicine Current PHONE: Unknown Dina has no Care Guidelines for this patient. Yohannes VISIT COUNT (12 MO.) 4 KONG Streeter TOTAL 4 NOTE: Visits indicate total known visits. ED/UCC VISIT TRACKING (12 MO.) 06/14/2024 07:54 [facility] TYPE: Emergency COMPLAINT: - ABDOMINAL PAIN 06/05/2024 21:15 [facility] TYPE: Emergency COMPLAINT: - VOMITING DIAGNOSES: - Allergy status to narcotic agent - Essential (primary) hypertension - assisted (current) use of aspirin - Other chcf (current) drug therapy - Personal history of nicotine dependence - Unspecified foreign body in respiratory tract, part unspecified causing asphyxiation, initial encounter 05/28/2024 09:34 [facility] TYPE: Emergency COMPLAINT: - COUGHING UP BLOOD DIAGNOSES: - Allergy status to narcotic agent - Aphasia following unspecified cerebrovascular disease - Essential (primary) hypertension - Gastritis, unspecified, without bleeding - Hemiplegia and hemiparesis following unspecified cerebrovascular disease affecting right dominant side - umbrella repairer (current) use of aspirin - assisted (current) use of oral hypoglycemic drugs - Old myocardial infarction - Other chcf (current) drug therapy - Partial intestinal obstruction, [...] - Hypokalemia - Hypomagnesemia - Hypomagnesemia - umbrella repairer (current) use of aromatase inhibitors - assisted (current) use of aromatase inhibitors - umbrella repairer (current) use of aspirin - umbrella repairer (current) use of aspirin - assisted (current) use of oral hypoglycemic drugs - umbrella repairer (current) use of oral hypoglycemic drugs - umbrella repairer (current) use of systemic steroids - assisted (current) use of systemic steroids - Major depressive disorder, single episode, unspecified - Major depressive disorder, single episode, unspecified - Obesity, unspecified - Obesity, unspecified - Obstructive sleep apnea (adult) (pediatric) - Obstructive sleep apnea (adult) (pediatric) - Old myocardial infarction - Old myocardial infarction - Other cerebral infarction - Other cerebral infarction - Other chcf (current) drug therapy - Other chcf (current) drug therapy - Other specified bacterial [...] disturbance, mood disturbance, and anxiety - Weakness [email or web address]
[2024-06-14] MEDS ORDERED: CEFTRIAXONE SODIUM 2 GM VIAL ONE (08:03)
[2024-06-14 08:12] LABS: BASOPHILS 0.4 % (0-2); EOSINOPHILS 1.1 % (0-6); HEMATOCRIT 41.9 % (35.0-50.0); HEMOGLOBIN 14.1 g/dL (12.0-18.0); LYMPHOCYTES 10.9 % (24-44); MCH 30.5 (27-36); MCHC 33.7 g/dl (30-36); MCV 90.4 fl (81-99); MONOCYTES 11.7 % (0-12); NEUTROPHILS 75.9 % (39-80); PLATELET COUNT 155 K/uL (140-440); RBC 4.63 M/ul (4.3-5.7); RDW 15.9 (10.5-15.0)
[2024-06-14] MEDS ORDERED: MORPHINE SULFATE 4 MG/ML VIAL IV ONE (08:15)
[2024-06-14] MEDS ORDERED: CEFTRIAXONE SODIUM 2 GM in SODIUM CHLORIDE 0.9% 100 ML IV ONE (08:15)
[2024-06-14] MEDS ORDERED: ondansetron HCL 4 MG/2 ML VIAL IV ONE (08:15)
[2024-06-14] MEDS ORDERED: SODIUM CHLORIDE 0.9% 1,000 ML IV PRN (08:15)
[2024-06-14] MEDS ORDERED: PIPERACILLIN/TAZOBACTAM 4.5 GM VIAL ONE (08:21)
[2024-06-14 08:26] LABS: ALBUMIN 3.3 g/dL (3.4-5.0); ALBUMIN/GLOBULIN RATIO 0.67 (1.1-2.4); ANION GAP 14.6 (7-21); BILIRUBIN, TOTAL 1.4 mg/dL (0.2-1.0); BUN/CREATININE RATIO 13.1 (6.0-28.6); CALCIUM 9.5 mg/dL (8.5-10.1); CREATININE, SERUM 1.45 mg/dL (0.70-1.30); POTASSIUM 3.6 mmol/L (3.5-5.1); PROTEIN, TOTAL 8.2 g/dL (6.4-8.2)
[2024-06-14] MEDS ORDERED: PIPERACILLIN/TAZOBACTAM 4.5 GM in SODIUM CHLORIDE 0.9% 100 ML IV ONE (08:30)
[2024-06-14 08:37] LABS: LACTIC ACID, BLOOD 1.1 mmol/L (0.4-2.0)
[2024-06-14] MEDS ORDERED: HYDROmorphone HCL 1 MG/ML SYR IV PRN (08:45)
[2024-06-14 10:57] VITALS: BP 144/99
--- NOTE | 2024-06-14 21:29 | EKG ---
[facility] [address] [facility] [place] [address] Signed Sinus tachycardia Left axis deviation Inferior infarct , age undetermined Abnormal ECG When compared with ECG of 18-MAY-2024 02:05, Inferior infarct is now present Confirmed by Lindsey Gambino DO ([id number]) on 06/14/2024 9:29:43 PM Electronically Signed By: LINDSEY GAMBINO DO 06/14/242128 PATIENT NAME: MAGALYS HILLIARD Electrocardiogram DATE OF : 59 PHYSICIAN: LINDSEY GAMBINO DO REPORT #: [id number] REPORT IS CONFIDENTIAL AND NOT TO BE RELEASED WITHOUT AUTHORIZATION
== END 2024-06-14 10:57 | disposition home or self-care (01) ==
LOC: ED 07:53
PROVIDERS: Emergency Medicine
DX: R10.84 Generalized abdominal pain (principal); Z59.89 Other problems related to housing and economic circumstances; I10 Essential (primary) hypertension; Z87.442 Personal history of urinary calculi; Z87.891 Personal history of nicotine dependence; Z88.5 Allergy status to narcotic agent
CPT/HCPCS: 36415; 71045; 74176; 80053; 83605; 83690; 85025; 93005; 93010; 96365; 96375; 99284-25; J0696; J2270; J2405; J2543; J7030

== ENCOUNTER 2024-06-23 13:48 | Emergency (ER) | payer MEDICARE, OTHER ==
[~2024-06-23] VITALS: Ht 185.4 cm; Wt 120.0 kg
[~2024-06-23 13:48] MED LIST changes: -METFORMIN HCL500 MG PT
--- OUTSIDE RECORDS SUMMARY | 2024-06-23 13:55 | XMS ---
PreManage Notification: MAGALYS HILLIARD Security Civil Division Commander Deputy Sheriff Events No recent Security Events currently on file CRITERIA MET - [facility] - 2 Visits in 30 Days CARE PROVIDERS TOM PEREA Nurse Practitioner: Family Current PHONE: [phone] NURIS DURÁN Physician Area Supervisor Vidhya CASTAÑEDA PHONE: [phone] MIAN CAI Nurse Practitioner: Adult Health Vidhya GILMORE PHONE: [phone] ANTHONY WILL Family Medicine Current PHONE: Unknown Dina has no Care Guidelines for this patient. Yohannes VISIT COUNT (12 MO.) 5 KONG Streeter TOTAL 5 NOTE: Visits indicate total known visits. ED/UCC VISIT TRACKING (12 MO.) 06/23/2024 13:49 [facility] TYPE: Emergency COMPLAINT: - WEAKNESS 06/14/2024 07:54 [facility] TYPE: Emergency COMPLAINT: - ABDOMINAL PAIN DIAGNOSES: - Allergy status to narcotic agent - Essential (primary) hypertension - Generalized abdominal pain - Other problems related to housing and economic circumstances - Personal history of nicotine dependence - Personal history of urinary calculi 06/05/2024 21:15 [facility] TYPE: Emergency COMPLAINT: - VOMITING DIAGNOSES: - Allergy status to narcotic agent - Essential (primary) hypertension - termite treater helper (current) use of aspirin - Other group [...] cerebrovascular disease affecting right dominant side - nursing home (current) use of aspirin - nursing home (current) use of oral hypoglycemic drugs - Old myocardial infarction - Other adjunct faculty for medical terminology (current) drug therapy - Partial intestinal obstruction, [...] - Hypokalemia - Hypomagnesemia - Hypomagnesemia - termite treater helper (current) use of aromatase inhibitors - termite treater helper (current) use of aromatase inhibitors - termite treater helper (current) use of aspirin - termite treater helper (current) use of aspirin - termite treater helper (current) use of oral hypoglycemic drugs - nursing home (current) use of oral hypoglycemic drugs - nursing home (current) use of systemic steroids - nursing home (current) use of systemic steroids - Major depressive disorder, single episode, unspecified - Major depressive disorder, single episode, unspecified - Obesity, unspecified - Obesity, unspecified - Obstructive sleep apnea (adult) (pediatric) - Obstructive sleep apnea (adult) (pediatric) - Old myocardial infarction - Old myocardial infarction - Other cerebral infarction - Other cerebral infarction - Other group home (current) drug therapy - Other adjunct faculty for medical terminology (current) drug therapy - Other specified bacterial [...] disturbance, mood disturbance, and anxiety - Weakness [email or web address]
[2024-06-23] MEDS ORDERED: PANTOPRAZOLE SO40 MG PO (14:00)
[2024-06-23 15:12] LABS: BASOPHILS 0.2 % (0-2); EOSINOPHILS 1.9 % (0-6); HEMATOCRIT 38.6 % (35.0-50.0); MCH 30.1 (27-36); MCHC 33.8 g/dl (30-36); MCV 89.1 fl (81-99); MONOCYTES 8.3 % (0-12); NEUTROPHILS 81.6 % (39-80); PLATELET COUNT 158 K/uL (140-440); RBC 4.33 M/ul (4.3-5.7); RDW 15.9 (10.5-15.0)
[2024-06-23 15:22] LABS: PARTIAL THROMBOPLASTIN TIME 24.9 Sec (22.9-41.3)
[2024-06-23 15:23] LABS: INR 1.14 (0.80-1.30); PROTIME 13.9 Sec (11.2-14.2)
[2024-06-23 15:29] LABS: ALBUMIN 2.6 g/dL (3.4-5.0); ALBUMIN/GLOBULIN RATIO 0.51 (1.1-2.4); ANION GAP 12.5 (7-21); BILIRUBIN, TOTAL 0.7 mg/dL (0.2-1.0); BUN/CREATININE RATIO 13.66 (6.0-28.6); CALCIUM 9.4 mg/dL (8.5-10.1); CREATININE, SERUM 1.61 mg/dL (0.70-1.30); MAGNESIUM 1.6 mg/dL (1.8-2.4); POTASSIUM 3.5 mmol/L (3.5-5.1); PROTEIN, TOTAL 7.7 g/dL (6.4-8.2)
[2024-06-23 18:30] VITALS: BP 115/82
[2024-06-29] MEDS ORDERED: ELIQUIS5 MG PO (12:11)
== END 2024-06-23 18:30 | disposition home or self-care (01) ==
LOC: ED 13:48
PROVIDERS: Emergency Medicine
DX: I63.9 Cerebral infarction, unspecified (principal); I67.850 Cerebral autosomal dominant 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; I10 Essential (primary) hypertension; I25.2 Old myocardial infarction; Z87.891 Personal history of nicotine dependence; Z88.5 Allergy status to narcotic agent; Z79.82 Long term (current) use of aspirin; Z79.899 Other long term (current) drug therapy
CPT/HCPCS: 36415; 70450; 70496; 70498; 70551; 71045; 80053; 83735; 84484; 85025; 85610; 85730; 93005; 93010; 99285-25; Q3014; Q9967

== ENCOUNTER 2024-06-27 16:24 | Observation (INO) | payer MEDICARE, OTHER ==
[~2024-06-27] VITALS: Ht 185.4 cm; Wt 116.4 kg
[~2024-06-27 16:24] MED LIST changes: +PANTOPRAZOLE SO40 MG PO
--- OUTSIDE RECORDS SUMMARY | 2024-06-27 16:26 | XMS ---
PreManage Notification: MAGALYS HILLIARD Security Line Fixer Events No recent Security Events currently on file CRITERIA MET - 6 ED Visits in 6 Months - [facility] - 2 Visits in 30 Days CARE PROVIDERS TOM PEREA Nurse Practitioner: Family Current PHONE: [phone] NURIS DURÁN Physician Search Lead Vidhya MADDY PHONE: [phone] MIAN CAI Nurse Practitioner: Adult Health Vidhya WAVERLY PHONE: [phone] ANTHONY WILL [facility] Current PHONE: Unknown Dina has no Care Guidelines for this patient. Yohannes VISIT COUNT (12 MO.) 6 KONG Streeter TOTAL 6 NOTE: Visits indicate total known visits. ED/UCC VISIT TRACKING (12 MO.) 06/27/2024 16:24 [facility] TYPE: Emergency COMPLAINT: - ALTERED MENTAL STATUS 06/23/2024 13:49 [facility] TYPE: Emergency COMPLAINT: - WEAKNESS DIAGNOSES: - Allergy status to narcotic agent - Cerebral autosomal dominant 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 - Cerebral infarction, unspecified - Essential (primary) hypertension - shelter (current) use of aspirin - Old myocardial infarction - Other historical site guide (current) drug therapy - Personal history of nicotine dependence - Weakness 06/14/2024 07:54 [facility] TYPE: Emergency [...] narcotic agent - Essential (primary) hypertension - shelter (current) use of aspirin - Other senior care (current) drug therapy - Personal history of [...] cerebrovascular disease affecting right dominant side - steam shovelman (current) use of aspirin - steam shovelman (current) use of oral hypoglycemic drugs - Old myocardial infarction - Other senior care (current) drug therapy - Partial intestinal obstruction, [...] - Hypokalemia - Hypomagnesemia - Hypomagnesemia - steam shovelman (current) use of aromatase inhibitors - steam shovelman (current) use of aromatase inhibitors - steam shovelman (current) use of aspirin - steam shovelman (current) use of aspirin - shelter (current) use of oral hypoglycemic drugs - shelter (current) use of oral hypoglycemic drugs - shelter (current) use of systemic steroids - steam shovelman (current) use of systemic steroids - Major depressive disorder, single episode, unspecified - Major depressive disorder, single episode, unspecified - Obesity, unspecified - Obesity, unspecified - Obstructive sleep apnea (adult) (pediatric) - Obstructive sleep apnea (adult) (pediatric) - Old myocardial infarction - Old myocardial infarction - Other cerebral infarction - Other cerebral infarction - Other senior care (current) drug therapy - Other historical site guide (current) drug therapy - Other specified bacterial [...] disturbance, mood disturbance, and anxiety - Weakness [email or web address]
[2024-06-27] MEDS ORDERED: SODIUM CHLORIDE 0.9% 1,000 ML IV ONE (16:45)
[2024-06-27 17:00] LABS: PH, VENOUS 7.328 (7.31-7.41)
[2024-06-27 17:07] LABS: BASOPHILS 0.4 % (0-2); EOSINOPHILS 2.6 % (0-6); HEMATOCRIT 40.5 % (35.0-50.0); HEMOGLOBIN 13.7 g/dL (12.0-18.0); LYMPHOCYTES 12.5 % (24-44); MCH 30.1 (27-36); MCHC 33.8 g/dl (30-36); MONOCYTES 12.3 % (0-12); NEUTROPHILS 72.2 % (39-80); PLATELET COUNT 182 K/uL (140-440); RBC 4.54 M/ul (4.3-5.7); RDW 15.9 (10.5-15.0)
[2024-06-27 17:22] LABS: LACTIC ACID, BLOOD 1.4 mmol/L (0.4-2.0)
[2024-06-27 17:30] LABS: ALBUMIN 2.6 g/dL (3.4-5.0); ALBUMIN/GLOBULIN RATIO 0.47 (1.1-2.4); ANION GAP 13.2 (7-21); BILIRUBIN, TOTAL 0.8 mg/dL (0.2-1.0); BUN/CREATININE RATIO 21.24 (6.0-28.6); CALCIUM 9.9 mg/dL (8.5-10.1); CREATININE, SERUM 1.93 mg/dL (0.70-1.30); POTASSIUM 3.2 mmol/L (3.5-5.1); PROTEIN, TOTAL 8.1 g/dL (6.4-8.2)
[2024-06-27 19:36] LABS: TSH, 3RD GENERATION 1.578 uIU/mL (0.358-3.740)
[2024-06-27] MEDS ORDERED: ondansetron HCL 4 MG/2 ML VIAL IV PRN (20:45)
[2024-06-27] MEDS ORDERED: ACETAMINOPHEN 325 MG TAB PO PRN (20:45)
[2024-06-27] MEDS ORDERED: LACTATED RINGER'S 1,000 ML IV SCH (20:45)
[2024-06-27 21:00] LABS: BILIRUBIN, URINE NEGATIVE (negative); BLOOD/HGB, URINE NEGATIVE (Negative); KETONE, URINE NEGATIVE (Negative); LEUK ESTERASE, URINE NEGATIVE (negative); NITRITE, URINE NEGATIVE (negative); PH, URINE 5.5 (5-7)
[2024-06-27 21:15] LABS: BACTERIA, URINE RARE /hpf (negative); CASTS, URINE GRANULAR 1+ \\lpf; COLLECTION TYPE, URINE CLEAN CATCH; CRYSTALS, URINE NONE SEEN (0-1+); EPITHELIAL CELLS, URINE SQUAMOUS 1+ /lpf (0-1+); REFLEX CULTURE, URINE No (No)
[2024-06-27] MEDS ORDERED: POTASSIUM CHLORIDE 40 MEQ,LIDOCAINE HCL 1% 40 MG in DEXTROSE 5% 250 ML IV ONE (21:15)
[2024-06-27 21:26] LABS: AMPHETAMINES, URINE NEGATIVE (NEGATIVE); BARBITURATES, URINE NEGATIVE (NEGATIVE); BENZODIAZEPINE, URINE NEGATIVE (NEGATIVE); BUPRENORPHINE, URINE NEGATIVE (NEGATIVE); CANNABINOID, URINE NEGATIVE (NEGATIVE); COCAINE, URINE NEGATIVE (NEGATIVE); ECSTASY, URINE POSITIVE (NEGATIVE); FENTANYL, URINE NEGATIVE (NEGATIVE); METHADONE, URINE NEGATIVE (NEGATIVE); OPIATES, URINE NEGATIVE (NEGATIVE); OXYCODONE, URINE NEGATIVE (NEGATIVE); PHENCYCLIDINE, URINE NEGATIVE (NEGATIVE)
[2024-06-27 22:07] VITALS: BP 127/77
[2024-06-27] MEDS ORDERED: POTASSIUM CHLORIDE 10 MEQ/100 ML BAG IV SCH (23:00)
--- NOTE | 2024-06-27 23:16 | NUR ---
PATIENT RESTING IN BED WITH HOB ELEVATED AND AT BEDSIDE. PATIENT APPEARS COMFORTABLE WITHOUT SIGNS OF DISTRESS. PATIENT DENIES ANY NEEDS AT THIS TIME. CALL LIGHT AND PERSONAL BELONGINGS ARE WITHIN REACH. IV INFUSING POTASSIUM AT THIS TIME.
--- NOTE | 2024-06-27 23:21 | NUR ---
DR GAMBINO CALLED AT THIS TIME DUE TO PATIENT CT RESULTS OF "PROBABLE THROMBUS INVOLVING THE RIGHT COMMON FEMORAL VEIN". STATES "YES, I AM AWARE". THIS RN ASKED MD IF HE WANTS US TO START ANY NEW ORDERS AND STATES "NO". NO NEW ORDERS RECEIVED. CALL ENDED.
[2024-06-28] VITALS (10 sets, daily range): BP systolic 108–136; BP diastolic 68–89
--- NOTE | 2024-06-28 00:38 | NUR ---
PATIENT IS NPO AND WITH HX OF TYPE 2 DIABETES. PER UNIT PROTOCOL, ORDER FOR Q6 BLOOD SUGAR CHECKS ADDED AT THIS TIME.
[2024-06-28] MEDS ORDERED: ALBUTEROL SULFATE 0.083% 3 ML VIAL INH PRN (01:00)
--- NOTE | 2024-06-28 01:03 | NUR ---
PATIENT REPORTING PAIN AT IV SITE WITH POTASSIUM INFUSION. LIDOCAINE ADDED BY THIS RN AND ABDELRAHMAN RN AT THIS TIME.
[2024-06-28] MEDS ORDERED: IBLOOD GLUCOSE TEST STRIP 1 EA TEST VI SCH (02:00)
--- NOTE | 2024-06-28 02:28 | NUR ---
Awakens easily, On room air at this time, CPOX at bedside, Lungs clear dim at bases. tracks with eyes, smiles, non verbal at this time. R sided weakness residual. IVF and K rider infusing w/o problems. Moves L arm, took O2 off earlier, sats at WNL at this time, no distress noted. bedside CPOX on. pure wick in place, voiding small amount of tea colored urine. FOB elevated. Oral care done with some resistance from pt. outer oral care done at that time due to resistance. aspiration and fall precautions in place. Bed alrm in place. repositioned
[2024-06-28 05:34] LABS: BASOPHILS 0.4 % (0-2); EOSINOPHILS 1.8 % (0-6); HEMATOCRIT 36.5 % (35.0-50.0); HEMOGLOBIN 12.3 g/dL (12.0-18.0); LYMPHOCYTES 11.4 % (24-44); MCH 29.9 (27-36); MCHC 33.8 g/dl (30-36); MCV 88.5 fl (81-99); MONOCYTES 11.2 % (0-12); NEUTROPHILS 75.2 % (39-80); PLATELET COUNT 168 K/uL (140-440); RBC 4.12 M/ul (4.3-5.7); RDW 16.5 (10.5-15.0)
[2024-06-28 05:45] LABS: ANION GAP 11.8 (7-21); BUN/CREATININE RATIO 21.65 (6.0-28.6); CALCIUM 9.3 mg/dL (8.5-10.1); CREATININE, SERUM 1.57 mg/dL (0.70-1.30); MAGNESIUM 1.9 mg/dL (1.8-2.4); POTASSIUM 3.8 mmol/L (3.5-5.1)
--- NOTE | 2024-06-28 07:41 | NUR ---
PT RESTING EYES CLOSED AT TIME OF SHIFT REPORT. AWAKE NOW MAKES EYE CONTACT BUT DOES NOT ANSWER VERBALLY TO QUESTIONS. BREATHING EVEN AND UNLABORED SATS 94% ON ROOM AIR.
[2024-06-28] MEDS ORDERED: LORAZEPAM2 MG/1 M2 PO (07:54)
[2024-06-28] MEDS ORDERED: APIXABAN 5 MG TAB PO SCH (09:00)
--- NOTE | 2024-06-28 09:08 | NUR ---
PT CONTINUES NONVERBAL BUT MAKES EYE CONTACT MAKES SOME NOISE VERBALLY BUT NOTHING UNDERSTANDABLE. ORAL CARE PROVIDED HOB ELEVATED SOMEWHAT. PT APPEARS RELAXED AND RESTFUL. BED ALARM IS ON
--- NOTE | 2024-06-28 10:07 | NUR ---
PT'S IS PRESENT UPDATE PROVIDED. DR GAMBINO NOTIFIED SHE IS HERE PER HIS REQUEST. PT IS RESTING QUIETLY SATS 91%
--- NOTE | 2024-06-28 10:23 | NUR ---
DR GAMBINO IN TO MEET WITH PT ALL QUESTIONS ANSWERED PLAN OF CARE DISCUSSED. TYLENOL ADMINISTERED FOR S/S OF A HEADACHE. VISITOR X2 PRESENT WITH AND PT
--- NOTE | 2024-06-28 10:26 | NUR ---
SPOKE WITH AND THEN INTERNET PROGRAMMER ABOUT PT HAVING NO VISITORS AT THIS TIME PER THE .
[2024-06-28] MEDS ORDERED: PHARMACY RENAL DOSE ADJUSTMENT 1 DOSE MISC PO SCH (12:00)
--- NOTE | 2024-06-28 12:59 | NUR ---
REMAINS IN THE ROOM. PT REPOSITIONED AND ORAL CARE COMPLETE. PURWIK CHECKED TO ENSURE THERE IS NO LEAKING. PT APPEARS COMFORTABLE NO GRIMACING OR RUBBING HIS HEAD BEFORE. DENIES NEED ON HIS BEHALF. PT MAKES MORE INTENT EYE CONTACT AND IS COOPERATIVE WITH ORAL CARE SEEMS MORE ALERT AND IN SYNC THAN EARLIER IN THE SHIFT
--- NOTE | 2024-06-28 14:52 | NUR ---
PT RESTING SOUNDLY AT BEDSIDE EATING LUNCH WITH 2 OTHERS
--- NOTE | 2024-06-28 14:59 | NUR ---
PT REPOSITIONED AND ORAL CARE COMPLETED
[2024-06-28] MEDS ORDERED: LORazepam 2 MG TABLET PO PRN (15:30)
--- NOTE | 2024-06-28 15:42 | NUR ---
PT HAS LARGE SOFT BM ASSISTED TO CHANGE LINENS AND UNDERGARMENT. WELL TOLERATED. PT REFUSES ORAL CARE AT THIS TIME BUT CONTINUES WITH EYE CONTACT.
[2024-06-28] MEDS ORDERED: ATORVASTATIN 40 MG TAB PO SCH (17:00)
--- NOTE | 2024-06-28 19:18 | NUR ---
RECEIVED REPORT. PT IN BED WITH EYES CLOSED, BREATHING AUDIBLE. CALL LIGHT IN REACH, BED ALARM ACTIVE
[2024-06-28] MEDS ORDERED: carvediloL 3.125 MG TAB PO SCH (21:00)
[2024-06-28] MEDS ORDERED: TAMSULOSIN HCL 0.4 MG CAP PO SCH (21:00)
--- NOTE | 2024-06-28 22:02 | NUR ---
ASSESSMENT, EVENING MEDS. GIVEN TYLENOL PRN. GIVEN ENSURE X2 AND 300ML WATER. SUPPORTIVE SON AT BEDSIDE. CALL LIGHT IN REACH, BED ALARM ACTIVE
[2024-06-29] VITALS (7 sets, daily range): BP systolic 110–139; BP diastolic 65–91
--- NOTE | 2024-06-29 00:09 | NUR ---
PT RESTING IN BED WITH EYES CLOSED. RISE AND FALL OF CHEST NOTED. BED ALARM ACTIVE
--- NOTE | 2024-06-29 01:37 | NUR ---
PT RESTING IN BED WITH EYES CLOSED, RISE ADN FALL OF CHEST NOTED. CALL LIGHT IN REACH
--- NOTE | 2024-06-29 02:10 | NUR ---
BLOOD GLUCOSE CHECK: 178. CHANGED IV FLUIDS. PT RESTING WITH EYES CLOSED, ROUSABLE BUT QUICKLY BACK TO SLEEP. CALL LIGHT IN REACH
--- NOTE | 2024-06-29 03:43 | NUR ---
RESTING WITH EYES CLOSED, RISE AND FALL OF CHEST OBSERVED. CALL LIGHT IN REACH.
[2024-06-29 05:42] LABS: BASOPHILS 0.4 % (0-2); EOSINOPHILS 2.8 % (0-6); HEMATOCRIT 38.4 % (35.0-50.0); HEMOGLOBIN 13.1 g/dL (12.0-18.0); LYMPHOCYTES 12.2 % (24-44); MCH 30.2 (27-36); MCHC 34.1 g/dl (30-36); MCV 88.6 fl (81-99); MONOCYTES 11.6 % (0-12); PLATELET COUNT 164 K/uL (140-440); RBC 4.33 M/ul (4.3-5.7); RDW 15.9 (10.5-15.0)
[2024-06-29 06:11] LABS: ANION GAP 12.7 (7-21); BUN/CREATININE RATIO 19.85 (6.0-28.6); CALCIUM 9.5 mg/dL (8.5-10.1); CREATININE, SERUM 1.41 mg/dL (0.70-1.30); POTASSIUM 3.7 mmol/L (3.5-5.1)
--- NOTE | 2024-06-29 06:26 | NUR ---
RN AND FINISHED CIGAR MAKER CHANGED CLARITZA POOLE BRIEF. RE-DRESSED IV. GIVEN PRN TYLENOL FOR MOANING/GRIMACING. TURNED TO R SIDE, SUPPORTED WITH PILLOWS. CALL LIGHT IN REACH
--- NOTE | 2024-06-29 07:15 | NUR ---
PT RESTING EYES CLOSED AT TIME OF SHIFT REPORT. SATS 89% ON RA PT APPEARS RESTFUL.
--- NOTE | 2024-06-29 07:40 | NUR ---
HOURLY ROUNDING. PATIENT IS SLEEPING AT THIS TIME. BLOOD GLUCOSE HAS BEEN CHECKED AND DOCUMENTED. BOARD HAS BEEN UPDATED. NO REQUESTS FROM PATIENT AT THIS TIME
--- NOTE | 2024-06-29 08:46 | NUR ---
PT CONTINUES RESTING COMFORTABLY T/F AND MEDS ADMINISTERED PT DOES NOT AWAKEN. HOB IS ELEVATED APPROPRIATELY. IS PRESENT AT BEDSIDE UPDATE PROVIDED. NO OTHER NEEDS AT THIS TIME
[2024-06-29] MEDS ORDERED: PANTOPRAZOLE SODIUM 40 MG TABEC PO SCH (09:00)
--- NOTE | 2024-06-29 09:05 | NUR ---
DR GAMBINO IN MEETS WITH . PLAN GOING FORWARD AND PT CONDITION DISCUSSED AT LENGTH. ALL QUESTIONS ANSWERED
[2024-06-29] MEDS ORDERED: ACETAMINOPHEN500 M1 PT (09:20)
[2024-06-29] MEDS ORDERED: NEURONTIN400 MG PT (09:21)
[2024-06-29] MEDS ORDERED: ONDANSETRON HCL4 MG PT (09:22)
[2024-06-29] MEDS ORDERED: BUPROPION HCL75 MG PT (09:23)
[2024-06-29] MEDS ORDERED: COREG3.125 MG PT (09:24)
[2024-06-29] MEDS ORDERED: PROTONIX40 M1 PT (09:26)
[2024-06-29] MEDS ORDERED: METFORMIN HCL500 MG PT (09:27)
[2024-06-29] MEDS ORDERED: POTASSIUM20 MEQ/15 PT (09:28)
[2024-06-29] MEDS ORDERED: SIMETHICONE80 MG PT (09:34)
[2024-06-29] MEDS ORDERED: LAXATIVE SUPPOS10 MG PR (09:34)
[2024-06-29] MEDS ORDERED: ACIDOPHILUS1 EACH PT (09:35)
[2024-06-29] MEDS ORDERED: FLEET ENEMA133 ML PR (09:35)
[2024-06-29] MEDS ORDERED: MILK OF MA400 MG/5 M PT (09:36)
--- NOTE | 2024-06-29 10:01 | NUR ---
HOURLY ROUNDING. PATIENT HAS NO REQUEST, IS AT BEDSIDE. NO REQUEST FROM THE CURRENTLY, PATIENT IS TRYING TO GET SOME REST
--- NOTE | 2024-06-29 10:14 | NUR ---
PT REPOSITIONED REFUSES ORAL CARE GRABBING THIS WRITERS ARM AND TURNING HIS HEAD AWAY. CONTINUES TO BE PRESENT IN THE ROOM
--- NOTE | 2024-06-29 11:40 | NUR ---
PT'S REQUESTS TO SPEAK TO DR GAMBINO A 2ND TIME HE IS TO THE ROOM AT THIS TIME TO ANSWER REMAINING QUESTIONS
--- NOTE | 2024-06-29 11:46 | NUR ---
UR CLINICAL REVIEW: 2MN HAI, MEETS OBS FOR AMS AND BRIANNA FURTHER LAB STUDIES AND IV FLUIDS NEEDED MEDICARE OBS 06/27/2024 @ 2041 ORDER MATCHES REG NO AUTH REQUIRE PER MEDICARE RULES RETURN TO SNF WHEN MEDICALLY CLEARED, 1-2 DAYS
[2024-06-29] MEDS ORDERED: DICYCLOMINE HCL 10 MG CAP PO PRN (12:00)
--- NOTE | 2024-06-29 12:03 | NUR ---
PT GIVEN BENTYL AND TYLENOL FOR DISCOMFORTS. AGREES ALL QUESTIONS HAVE BEEN ANSWERED.
[2024-06-29] MEDS ORDERED: DICYCLOMINE HCL10 MG PO (12:09)
[2024-06-29] MEDS ORDERED: ELIQUIS5 MG PO ×2 (12:11→12:12)
[2024-06-29] MEDS ORDERED: BRILINTA60 MG PO (12:14)
--- NOTE | 2024-06-29 12:54 | NUR ---
PT MEETS WITH CORPORATE GENERAL MANAGER WELL DC PAVING CONTRACTOR ALL QUESTIONS ANSWERED
--- NOTE | 2024-06-29 13:38 | NUR ---
Received a voice message from Domingo at [facility], they reviewed orders and will accept this pt. Called [facility] and they will transport pt to [facility] shortly. Called Domingo and updated EMS will transport pt shorly.
--- NOTE | 2024-06-29 14:06 | NUR ---
VISITED DURING SPIRITUAL CARE ROUNDS. PT SUPPORTED BY IN ROOM. BOTH EXPRESSED SITUATIONALLY APPROPRIATE EMOTIONS, NO IMMEDIATE SPIRITUAL NEEDS. POLITICAL ANALYST PROVIDED SUPPORTIVE PRESENCE, HOSPITALITY, PRAYER, FACILITATED INTERACTION WITH THERAPY ANIMAL.
--- NOTE | 2024-06-29 14:13 | NUR ---
PT AGREES HIS STOMACHE FEELS BETTER. REPORT GIVEN TO WBT RN DISCUSSED NO NOON FEEDING AND HIS STOMACH HURTING HIM, T/F PLAN TO BE CHANGED ETC. REMAINS AT BEDSIDE WAITING FOR TRANSPORT.
--- NOTE | 2024-06-29 17:46 | EKG ---
[facility] [address] [place] [address] Signed Normal sinus rhythm Normal ECG Confirmed by Lindsey Gambino DO ([id number]) on 06/29/2024 5:45:59 PM Electronically Signed By: LINDSEY GAMBINO DO 06/29/24 1746 PATIENT NAME: MAGALYS HILLIARDMOND Electrocardiogram DATE OF : 59 PHYSICIAN: LINDSEY GAMBINO DO REPORT #: [id number] REPORT IS CONFIDENTIAL AND NOT TO BE RELEASED WITHOUT AUTHORIZATION
== END 2024-06-29 14:30 ==
LOC: ED 16:24 → MS 16:25
PROVIDERS: Emergency Medicine; ADMIT Student in an Organized Health Care Education/Training Program; ATTEND Student in an Organized Health Care Education/Training Program
DX: I67.850 Cerebral autosomal dominant 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 (principal); R41.82 Altered mental status, unspecified; I10 Essential (primary) hypertension; E78.5 Hyperlipidemia, unspecified; G47.33 Obstructive sleep apnea (adult) (pediatric); I25.2 Old myocardial infarction; Z66 Do not resuscitate; Z79.84 Long term (current) use of oral hypoglycemic drugs; Z79.899 Other long term (current) drug therapy; Z88.5 Allergy status to narcotic agent; Z88.8 Allergy status to other drugs, medicaments and biological substances; Z79.82 Long term (current) use of aspirin
CPT/HCPCS: 36415; 70450; 71045; 74176; 80048; 80053; 80307; 81001; 82140; 82803; 83605; 83735; 83880; 84439; 84443; 84484; 85025; 93005; 93010; 94762; 96360; 96361; 96365; 96366; 97162; 99285-25; A9270; G0378; J3480; J7030; J7121

== ENCOUNTER 2024-07-12 15:22 | Inpatient (IN) | payer MEDICARE, OTHER ==
[~2024-07-12] VITALS: Ht 185.4 cm; Wt 122.9 kg
[~2024-07-12 15:22] MED LIST changes: +ACETAMINOPHEN500 M1 PT; +ACIDOPHILUS1 EACH PT; +BRILINTA60 MG PO; +COREG3.125 MG PT; +DICYCLOMINE HCL10 MG PO; +ELIQUIS5 MG PO; +FLEET ENEMA133 ML PR; +LAXATIVE SUPPOS10 MG PR; +LORAZEPAM2 MG/1 M2 PO; +METFORMIN HCL500 MG PT; +MILK OF MA400 MG/5 M PT; +NEURONTIN400 MG PT; +ONDANSETRON HCL4 MG PT; +POTASSIUM20 MEQ/15 PT; +PROTONIX40 M1 PT; +SIMETHICONE80 MG PT
--- OUTSIDE RECORDS SUMMARY | 2024-07-12 15:26 | XMS ---
PreManage Notification: MAGALYS HILLIARD Security Youth Counselor Events No recent Security Events currently on file CRITERIA MET - 6 ED Visits in 6 Months - [facility] - 2 Visits in 30 Days CARE PROVIDERS TOM PEREA Nurse Practitioner: Family Current PHONE: [phone] NURIS DURÁN Physician Operations Section Manager Vidhya MADDY PHONE: [phone] MIAN CAI Nurse Practitioner: Adult Health Vidhya BUNOLA PHONE: [phone] ANTHONY WILL [facility] Medicine Current PHONE: Unknown Dina has no Care Guidelines for this patient. Yohannes VISIT COUNT (12 MO.) 7 KONG Streeter TOTAL 7 NOTE: Visits indicate total known visits. ED/UCC VISIT TRACKING (12 MO.) 07/12/2024 15:22 [facility] TYPE: Emergency COMPLAINT: - ABDOMINAL PAIN 06/27/2024 16:24 [facility] TYPE: Emergency COMPLAINT: - ALTERED MENTAL STATUS 06/23/2024 13:49 [facility] TYPE: Emergency COMPLAINT: - WEAKNESS DIAGNOSES: - Allergy status to narcotic agent - Cerebral autosomal dominant 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 - Cerebral infarction, unspecified - Essential (primary) hypertension - care home (current) use of aspirin - Old myocardial infarction - Other gis manager (current) drug therapy - Personal history of [...] narcotic agent - Essential (primary) hypertension - hydro excavation operator (current) use of aspirin - Other gis manager (current) drug therapy - Personal history of [...] cerebrovascular disease affecting right dominant side - care home (current) use of aspirin - care home (current) use of oral hypoglycemic drugs - Old myocardial infarction - Other retirement (current) drug therapy - Partial intestinal obstruction, unspecified as to cause - Personal history of nicotine dependence - Vomiting, unspecified 05/15/2024 10:47 [facility] TYPE: Emergency INPATIENT VISIT TRACKING (12 MO.) 06/27/2024 16:25 [facility] TYPE: Observation COMPLAINT: - AMS DIAGNOSES: - Allergy status to narcotic agent - Allergy status to other drugs, medicaments and biological substances - Altered mental status, unspecified - Cerebral autosomal dominant 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 - Do not resuscitate - Essential (primary) hypertension - Hyperlipidemia, unspecified - care home (current) use of aspirin - hydro excavation operator (current) use of oral hypoglycemic drugs - Obstructive sleep apnea (adult) (pediatric) - Old myocardial infarction - Other gis manager (current) drug therapy 05/15/2024 16:01 [facility] TYPE: Medical [...] - Hypokalemia - Hypomagnesemia - Hypomagnesemia - care home (current) use of aromatase inhibitors - care home (current) use of aromatase inhibitors - hydro excavation operator (current) use of aspirin - hydro excavation operator (current) use of aspirin - care home (current) use of oral hypoglycemic drugs - care home (current) use of oral hypoglycemic drugs - hydro excavation operator (current) use of systemic steroids - hydro excavation operator (current) use of systemic steroids - Major depressive disorder, single episode, unspecified - Major depressive disorder, single episode, unspecified - Obesity, unspecified - Obesity, unspecified - Obstructive sleep apnea (adult) (pediatric) - Obstructive sleep apnea (adult) (pediatric) - Old myocardial infarction - Old myocardial infarction - Other cerebral infarction - Other cerebral infarction - Other gis manager (current) drug therapy - Other retirement (current) drug therapy - Other specified bacterial [...] disturbance, mood disturbance, and anxiety - Weakness [email or web address]
[2024-07-12 15:41] LABS: BASOPHILS 0.4 % (0-2); EOSINOPHILS 2.2 % (0-6); HEMATOCRIT 39.2 % (35.0-50.0); HEMOGLOBIN 13.2 g/dL (12.0-18.0); LYMPHOCYTES 12.4 % (24-44); MCH 29.8 (27-36); MCHC 33.8 g/dl (30-36); MCV 88.2 fl (81-99); MONOCYTES 8.1 % (0-12); NEUTROPHILS 76.9 % (39-80); PLATELET COUNT 167 K/uL (140-440); RBC 4.44 M/ul (4.3-5.7); RDW 16.8 (10.5-15.0)
[2024-07-12 15:55] LABS: ALBUMIN 3.2 g/dL (3.4-5.0); ALBUMIN/GLOBULIN RATIO 0.68 (1.1-2.4); ANION GAP 11.4 (7-21); BILIRUBIN, TOTAL 0.8 mg/dL (0.2-1.0); BUN/CREATININE RATIO 14.83 (6.0-28.6); CALCIUM 9.6 mg/dL (8.5-10.1); CREATININE, SERUM 1.55 mg/dL (0.70-1.30); POTASSIUM 3.4 mmol/L (3.5-5.1); PROTEIN, TOTAL 7.9 g/dL (6.4-8.2)
[2024-07-12] MEDS ORDERED: CEFTRIAXONE SODIUM 1 GM in SODIUM CHLORIDE 0.9% 100 ML IV ONE (18:00)
[2024-07-12] MEDS ORDERED: AZITHROMYCIN 500 MG in DEXTROSE 5% 250 ML IV ONE (18:00)
[2024-07-12] MEDS ORDERED: bisacodyL 10 MG SUPP PR PRN (18:45)
[2024-07-12] MEDS ORDERED: LACTATED RINGER'S 1,000 ML IV SCH (18:45)
[2024-07-12] MEDS ORDERED: ondansetron HCL 4 MG/2 ML VIAL IV PRN (18:45)
[2024-07-12] MEDS ORDERED: PROCHLORPERAZINE EDISYLATE 10 MG/2 ML VIAL IV PRN (18:45)
[2024-07-12 19:00] LABS: BILIRUBIN, URINE NEGATIVE (negative); BLOOD/HGB, URINE NEGATIVE (Negative); KETONE, URINE NEGATIVE (Negative); LEUK ESTERASE, URINE NEGATIVE (negative); NITRITE, URINE NEGATIVE (negative)
[2024-07-12 19:17] LABS: BACTERIA, URINE RARE /hpf (negative); CASTS, URINE NONE SEEN \\lpf; COLLECTION TYPE, URINE CLEAN CATCH; CRYSTALS, URINE CALCIUM OXALATE 1+ (0-1+); EPITHELIAL CELLS, URINE SQUAMOUS 1+ /lpf (0-1+); REFLEX CULTURE, URINE No (No)
--- NOTE | 2024-07-12 19:20 | NUR ---
PT ARRIVED FROM ED, RECEIVED REPORT. SUPPORTIVE FAMILY AT BEDSIDE. PT WITH SOME FACIAL GRIMACING. NO NEEDS FROM FAMILY PRESENTLY. CALL LIGHT IN REACH, BED ALARM ACTIVE
[2024-07-12 19:28] VITALS: BP 139/98
[2024-07-12] MEDS ORDERED: DICYCLOMINE HCL 10 MG CAP PO PRN (19:45)
[2024-07-12] MEDS ORDERED: HEParin SOD (PORCINE) 5,000 UNIT/ML SYR IV PRN ×3 (19:45)
[2024-07-12] MEDS ORDERED: HEPARIN SOD,PORK IN 0.45% NACL 500 ML IV SCH (19:45)
[2024-07-12] MEDS ORDERED: HEParin SOD (PORCINE) 5,000 UNIT/ML SYR IV ONE ×2 (19:45→22:30)
--- NOTE | 2024-07-12 20:00 | NUR ---
WATERPROOF BAG CUTTING MACHINE OPERATOR GAVE PT WARM BLANKETS FOR COMFORT
--- NOTE | 2024-07-12 20:48 | NUR ---
ASSESSMENT, STARTED IV FLUIDS AND ANTIBIOTICS. SUPPORTIVE SON IN ROOM. PT SLEEPY, THOUGH EASILY ROUSABLE. RESPONDS WITH YES/NO HEAD SHAKES. BED ALARM ACTIVE, CALL LIGHT IN REACH
[2024-07-12] MEDS ORDERED: GABAPENTIN 300 MG CAP PO SCH (21:00)
[2024-07-12] MEDS ORDERED: carvediloL 3.125 MG TAB PO SCH (21:00)
--- NOTE | 2024-07-12 21:14 | NUR ---
LABS DRAWN BY DHRUV RAZA, SENT TO LAB. pt EDUCATION PROVIDED. FAMILY IN ROOM.
[2024-07-12 21:19] LABS: BASOPHILS 0.7 % (0-2); EOSINOPHILS 2.6 % (0-6); HEMATOCRIT 38.2 % (35.0-50.0); HEMOGLOBIN 12.8 g/dL (12.0-18.0); LYMPHOCYTES 19.2 % (24-44); MCH 29.7 (27-36); MCHC 33.6 g/dl (30-36); MCV 88.3 fl (81-99); MONOCYTES 9.7 % (0-12); NEUTROPHILS 67.8 % (39-80); PLATELET COUNT 160 K/uL (140-440); RBC 4.33 M/ul (4.3-5.7); RDW 16.4 (10.5-15.0)
[2024-07-12 21:30] LABS: PARTIAL THROMBOPLASTIN TIME 28.2 Sec (22.9-41.3)
[2024-07-12 21:31] LABS: INR 1.31 (0.80-1.30); PROTIME 15.5 Sec (11.2-14.2)
--- NOTE | 2024-07-12 22:17 | NUR ---
INSERTED NEW IV FOR HEPARIN DRIP. PT ALERT, ANSWERING QUESTIONS LOGICALLY IN FULL SENTENCES. PROVIDED WARM BLANKETS. BED ALARM ACTIVE
[2024-07-12 22:38] VITALS: BP 139/98
[2024-07-12 23:17] LABS: INFLUENZA B NAA NEGATIVE (NEGATIVE); RESPIRATORY SYNCYTIAL VIR NAA NEGATIVE (NEGATIVE)
[2024-07-13] VITALS (13 sets, daily range): BP systolic 139–160; BP diastolic 85–96
[2024-07-13] MEDS ORDERED: ELIQUIS5 MG PO (00:18)
[2024-07-13] MEDS ORDERED: ALBUTEROL SULFATE 0.083% 3 ML VIAL INH PRN (00:30)
--- NOTE | 2024-07-13 00:47 | NUR ---
PT RESTIN GIN BED WITH CLOSED EYES, RISE AND FALL OF CHEST OBSERVED. CALL LIGHT IN REACH
--- NOTE | 2024-07-13 01:34 | NUR ---
VITALS, REPOSITIONED PT. NO NEEDS AT THIS TIME, CALL LIGHT IN REACH
--- NOTE | 2024-07-13 03:18 | NUR ---
PT RESTING IN BED WITH EYES CLOSED, RISE AND FALL OF CHEST NOTED. CALL LIGHT IN REACH
[2024-07-13 04:56] LABS: ANION GAP 9.5 (7-21); BUN/CREATININE RATIO 14.28 (6.0-28.6); CREATININE, SERUM 1.54 mg/dL (0.70-1.30); MAGNESIUM 1.8 mg/dL (1.8-2.4); PHOSPHORUS, INORGANIC 3.8 mg/dL (2.5-4.9); POTASSIUM 3.5 mmol/L (3.5-5.1)
[2024-07-13 05:01] LABS: BASOPHILS 0.7 % (0-2); EOSINOPHILS 3.5 % (0-6); HEMOGLOBIN 12.3 g/dL (12.0-18.0); LYMPHOCYTES 20.5 % (24-44); MCH 30.1 (27-36); MCHC 34.1 g/dl (30-36); MCV 88.4 fl (81-99); MONOCYTES 9.4 % (0-12); NEUTROPHILS 65.9 % (39-80); PLATELET COUNT 151 K/uL (140-440); RBC 4.07 M/ul (4.3-5.7); RDW 16.6 (10.5-15.0)
--- NOTE | 2024-07-13 05:25 | NUR ---
STOPPED HEPARIN DRIP AT 0525 D/T PTT OF 236. REDRAW LAB AT THIS TIME FOR CONFIRMATION. PT ASLEEP WITH NOTED RISE ADN FALL OF CHEST, NO SIGNS OF BLEEDING.
--- NOTE | 2024-07-13 06:30 | NUR ---
RESTARTED HEPARIN GTT AT REDUCED RATE OF 15 units/kg/hour. NO SIGNS OF BLEEDING. APPT REDRAW 162.9. UOP ONLY 50ML OVERNIGHT. BLADDER SCAN SHOWS 383ML. NOTIFIED, REQUESTED GANT BE PLACED.
--- NOTE | 2024-07-13 06:38 | NUR ---
DOUBLE VERIFIED HEPARIN GTT TITRATION WITH PRIMARY RN PER POLICY. TITRATED PER FLOWSHEET. INFUSING WNL. CALL LIGHT IN REACH.
--- NOTE | 2024-07-13 07:08 | NUR ---
INSERTED GANT CATHETER PER MD REQUEST. HAND HYGIENE AND STERILE TECHNIQUE PRACTICED. INITIAL OUTPUT OF 550ML. TOLERATED WELL BY PT.
--- NOTE | 2024-07-13 07:29 | NUR ---
REPORT FROM ELY BARTLETT.
--- NOTE | 2024-07-13 07:59 | NUR ---
MORNING ASSESSMENT IS COMPLETE. PATIENT IS SLEEPING SOUNDLY, O2 IS ON 2L VIA OXYMASK. ULTRASOUND IS IN TO DO ABD US FOR GALLBLADDER. G-TUBE IN PLACE AND PLUGGED. GANT CATHETER IS IN PLACE AND DRAINING YELLOW URINE. HEPARINE DRIP IS INFUSING AT 15UNITS. LUNGS ARE CLEAR, DIM IN BASES.
--- NOTE | 2024-07-13 08:52 | NUR ---
PATIENT IN BED AT THIS TIME. BILINGUAL INTERPRETER CHARTED HOURLY ROUNDS. CALL LIGHT WITHIN REACH, NO FURTHER NEEDS AT THIS TIME.
[2024-07-13] MEDS ORDERED: PANTOPRAZOLE SODIUM 40 MG/10 ML VIAL IV SCH (09:00)
[2024-07-13] MEDS ORDERED: DULOXETINE HCL 60 MG CAP PO SCH (09:00)
[2024-07-13] MEDS ORDERED: TAMSULOSIN HCL 0.4 MG CAP PO SCH (09:00)
[2024-07-13] MEDS ORDERED: buPROPion HCL XL 300 MG TAB.XL.24H PO SCH (09:00)
[2024-07-13] MEDS ORDERED: LORazepam 2 MG/ML VIAL IV ONE (09:30)
--- NOTE | 2024-07-13 09:53 | NUR ---
PATIENT GIVEN 0.5MG OF ATIVAN FOR AGITATION, IV PROTONIX. PO MEDS HELD DUE TO NO ORDERS REGARDING G-TUBE, ALSO PENDING SURGICAL CONSULTATION.
--- NOTE | 2024-07-13 10:07 | NUR ---
HOURLY ROUNDING. PATIENT SAID "IM SCARED" PATIENT JIGNA IS AT BEDSIDE AND COMFORTING HIM. ORAL CARE WAS COMPLETED. REQUESTED COFFEE FOR HER, COFFEE HAS BEEN GIVEN. NO FURTHER REQUEST
--- NOTE | 2024-07-13 10:52 | NUR ---
PATIENT IS RESTING QUIETLY, IS IN ROOM. CASE MGMT IN TO TALK WITH .
--- NOTE | 2024-07-13 10:52 | NUR ---
Spoke with pts , Angeline. Pt is sleeping as he was given Ativan. Per pt has had anxiety lately. [facility], He has a feeding tube and has not tolerated tube feedings. He is a isaias for all transfers. denies any needs, wants to know why pt is having so much abdominal pain.
--- NOTE | 2024-07-13 11:16 | NUR ---
UR CLINICAL REVIEW: 2 MN FOR VERSALUS-PER CAP SIZER MEET INPT AHRF/PNA WITH NEW NEED FOR OXYGEN MEDICARE INPT 07/12/24 @ 8111 ORDER MATCHES REG NO AUTH REQUIRED PER MEDICARE GUIDELINES DISCHARGE TO HOME WHEN STABLE. ANTICIPATE 1-2 DAYS
[2024-07-13] MEDS ORDERED: PHARMACY RENAL DOSE ADJUSTMENT 1 DOSE MISC PO SCH (12:00)
[2024-07-13] MEDS ORDERED: DICYCLOMINE HCL 10 MG CAP PT PRN (12:30)
--- NOTE | 2024-07-13 12:37 | NUR ---
PATIENT ASSISTED TO HAVE CHEST PHYSIOTHERAPY WITH RT. WELLBUTRIN TO BE GIVEN PER G-TUBE. PATIENT REPOSITIONED.
--- NOTE | 2024-07-13 13:10 | NUR ---
PATIENT IN BED AT THIS TIME. MITOCHONDRIAL DISORDERS COUNSELOR CHARTED VITALS AND I&O'S. CALL LIGHT WITHIN REACH, NO FURTHER NEEDS.
--- NOTE | 2024-07-13 13:11 | NUR ---
PATIENT HOYERED FROM CHAIR TO COMMODE, DID NOT HAVE A BM. PATIENT BACK TO BED, AFTERNOON MEDICATIONS GIVEN.
--- NOTE | 2024-07-13 13:14 | NUR ---
PATIENT REPOSITIONED TO RIGHT SIDE. RIGHT ARM IV WRAPPED WITH COBAN.
[2024-07-13] MEDS ORDERED: metroNIDAZOLE/SODIUM CHLORIDE 500 MG/100 ML PIGGYBACK IV SCH (13:27)
[2024-07-13] MEDS ORDERED: buPROPion HCL 75 MG TAB PT SCH (13:30)
--- NOTE | 2024-07-13 14:04 | NUR ---
VISITED DURING SPIRITUAL CARE ROUNDS. PT SUPPORTED BY IN ROOM. SIGNIFICANT SPIRITUAL DISTRESS EVIDENCED BY PT THROUGH TEARS, REPEATED STATEMENTS OR "I'M SORRY," AND "I DIDN'T MEAN TO." THERMODYNAMICIST FACILITATED EXPRESSION OF DESIRES, WORRIES, PROVIDED PRAYER, ADVOCATED FOR ANXIETY RELIEF WITH NURSING STAFF WHO RESPONDED QUICKLY.
--- NOTE | 2024-07-13 14:25 | NUR ---
PATIENT AGITATED, CRYING OUT TO MOM. IV FLAGYL INFUSING, 10MG OF IV COMPAZINE, 75MG OF WELLBUTRIN GIVEN PER TUBE WITH 50CC FLUSH AFTER. PATIENT IS NOW RESTING CALMLY.
--- NOTE | 2024-07-13 14:44 | NUR ---
PATIENT IS RESTING CALMLY, CALL TO TO NOTIFIY OF PATIENT STATUS.
[2024-07-13] MEDS ORDERED: LORAZEPAM2 MG/1 M2 PO (15:23)
--- NOTE | 2024-07-13 15:24 | NUR ---
medications reconciled using MARS from facility
--- NOTE | 2024-07-13 16:16 | NUR ---
LIPITOR GIVEN PER TUBE, 50CC FLUSH AFTER. NEW BAG OF HEPARIN HUNG. NO OTHER NEEDS AT THIS TIME.
[2024-07-13] MEDS ORDERED: ATORVASTATIN 40 MG TAB PO SCH (17:00)
[2024-07-13] MEDS ORDERED: ATORVASTATIN 40 MG TAB PT SCH (17:00)
--- NOTE | 2024-07-13 17:23 | NUR ---
IV ROCEPHIN INFUSING. PATIENT IS RESTING QUIETLY IN BED. NO OTHER NEEDS AT THIS TIME.
[2024-07-13] MEDS ORDERED: CEFTRIAXONE SODIUM 2 GM in SODIUM CHLORIDE 0.9% 100 ML IV SCH (18:00)
--- NOTE | 2024-07-13 18:24 | NUR ---
PATIENT IS RESTING COMFORTABLY. NO NEEDS NOTED AT THIS TIME.
--- NOTE | 2024-07-13 18:50 | NUR ---
HOURLY ROUNDING. PATIENT IS CURRENTLY SLEEPING, FABY IS AT BEDSIDE. NO REQUEST FROM OR PATIENT. GANT HAS BEEN EMPTIED
--- NOTE | 2024-07-13 19:35 | NUR ---
PT ALERT IN BED, DENIES PAIN OR SHORTNESS OF BREATH. SUPPORTIVE FAMILY AT BEDSIDE, AWAITING SURGICAL CONSULT. NO OTHER NEEDS PRESENTLY. CALL LIGHT IN REACH
[2024-07-13] MEDS ORDERED: AZITHROMYCIN 500 MG in DEXTROSE 5% 250 ML IV SCH (20:00)
[2024-07-13] MEDS ORDERED: carvediloL 3.125 MG TAB PT SCH (21:00)
[2024-07-13] MEDS ORDERED: GABAPENTIN 300 MG CAP PT SCH (21:00)
--- NOTE | 2024-07-13 21:18 | NUR ---
VITALS, ASSESSMENT, EVENING MEDS. PT DENIES PAIN, THOUGH EXPRESSES SADNESS AND IS SOMEWHAT TEARFUL. REPOSITIONED PT. HEPARIN GTT AT 14 UNITS/KG/HR. CALL LIGHT IN REACH
--- NOTE | 2024-07-13 23:50 | NUR ---
PT RESTING WITH EYES CLOSED. RISE AND FALL OF CHEST OBSERVED, CALL GLIHT IN REACH
[2024-07-14] VITALS (10 sets, daily range): BP systolic 132–152; BP diastolic 61–95
--- NOTE | 2024-07-14 01:05 | NUR ---
PT RESTING WITH EYES CLOSED, BREATHING AUDIBLE. CALL LIGHT IN REACH
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
--- NOTE | 2024-07-14 03:10 | NUR ---
REDUCED HEPARIN RATE TO 12 UNIT/KG/HOUR D/T APPT OF 115.6. PT ALERT IN BED, NO NEEDS. CALL LIGHT IN REACH
--- NOTE | 2024-07-14 05:52 | NUR ---
VITALS, I&OS, REPOSITIONED PT. NO NEEDS AT THIS TIME, CALL LIGHT IN REACH
[2024-07-14 05:56] LABS: BASOPHILS 0.8 % (0-2); EOSINOPHILS 3.2 % (0-6); HEMOGLOBIN 12.1 g/dL (12.0-18.0); LYMPHOCYTES 21.6 % (24-44); MCH 29.8 (27-36); MCHC 33.7 g/dl (30-36); MCV 88.5 fl (81-99); MONOCYTES 10.8 % (0-12); NEUTROPHILS 63.6 % (39-80); PLATELET COUNT 131 K/uL (140-440); RBC 4.07 M/ul (4.3-5.7); RDW 16.7 (10.5-15.0)
[2024-07-14 06:20] LABS: ALBUMIN 2.7 g/dL (3.4-5.0); ALBUMIN/GLOBULIN RATIO 0.68 (1.1-2.4); ANION GAP 9.5 (7-21); BILIRUBIN, TOTAL 0.7 mg/dL (0.2-1.0); BUN/CREATININE RATIO 11.18 (6.0-28.6); CREATININE, SERUM 1.52 mg/dL (0.70-1.30); POTASSIUM 3.5 mmol/L (3.5-5.1); PROTEIN, TOTAL 6.7 g/dL (6.4-8.2)
--- NOTE | 2024-07-14 07:55 | NUR ---
HOURLY ROUNDING. PATIENT IS SLEEPING, I CHECKED PATIENT GANT TO MAKE SURE THERE'S FLOW AND NO KINKED. BOARD HAS BEEN UPDATED AND CALL LIGHT HAS BEEN PLACED WITHIN REACH
[2024-07-14] MEDS ORDERED: TAMSULOSIN HCL 0.4 MG CAP PT SCH (09:00)
[2024-07-14] MEDS ORDERED: LANSOPRAZOLE 30 MG TABDIS PT SCH (09:00)
[2024-07-14] MEDS ORDERED: DULOXETINE HCL 60 MG CAP PT SCH (09:00)
--- NOTE | 2024-07-14 10:08 | NUR ---
BED BATH IS COMPLETED AND NEW GOWN WAS PLACED ON PATIENT. FABY IS AT BEDSIDE. NO REQUEST FROM PATIENT OR
--- NOTE | 2024-07-14 10:34 | NUR ---
Patient awake, alert and oriented to self and place. Patient denies pain at this time. Morning medications admin per order, G-tube patent, flushed with tap water per order. Head of bed elevated. Abdomen is soft to touch, active bowel tones x4 quadrants, pt denies nausea. Heparin drip running @ 12u/kg/hr, at a rate of 23.3ml/hr-no titration this am. Patient's at bedside visiting with patient. Patient and deny needs at this time.
--- NOTE | 2024-07-14 11:04 | NUR ---
HOURLY ROUNDING. PATIENT IS IN GOOD SPIRITS, MAKING JOKES,LAUGHING, AND TALKING IN COMPLETE SENTENCES. IS AT BEDSITE. MENTIONED WANTING TO SEE THE DOCTOR BEFORE SHE LEAVES. NURSE HAS BEEN NOTIFIED. NO REQUEST FROM PATIENT AT THIS TIME
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
--- NOTE | 2024-07-14 11:30 | NUR ---
Dr. Cabrera made aware that if requesting to see him.
--- NOTE | 2024-07-14 12:28 | NUR ---
PT NOT AVAILABLE FOR VISIT. PROVIDED PRAYER.
--- NOTE | 2024-07-14 12:28 | NUR ---
Patient repositioned at this time. Patient visibly emotional, he reports the provider gave him "bad news about my labs". Enocuarged patient, opened blinds for patient.
--- NOTE | 2024-07-14 12:52 | NUR ---
VISITED DURING SPIRITUAL CARE ROUNDS. PT EXHIBITED SIGNIFICANT SIGNS OF SPIRITUAL DISTRESS, EXPRESSED SADNESS, DESPAIR. PT REMAINED INCONSOLABLE EXCEPT WHEN INTERACTING WITH THERAPY ANIMAL, THEN WEPT SILENTLY. GROCERY STORE BAGGER PROVIDED SUPPORTIVE PRESENCE, PRAYER, FACILITATED INTERACTION WITH THERPAY ANIMAL.
--- NOTE | 2024-07-14 13:48 | NUR ---
Called Dr. Cabrera to [facility] diet order. Patient may resume G-tube feedings. updated with this plan.
[2024-07-14] MEDS ORDERED: LORazepam 2 MG/ML VIAL ONE (14:32)
[2024-07-14] MEDS ORDERED: LORazepam 2 MG/ML VIAL IV ONE (14:45)
--- NOTE | 2024-07-14 14:58 | NUR ---
HOURLY ROUNDING. PATIENT WAS VEERY EMOTIONAL. OUTBURST OF CRYING, AND APPEARS A BIT OF CONFUSED. PATIENT WANTED HIM TO GET SOMETHING FOR ANXIETY AND TO HELP CALM HIM DOWN. CHARGE NURSE HAS BEEN NOTIFIED, AND NURSE IS AWARE. PATIENT AND HIS ARE TALKING TO THE DOCTOR CURRENTLY. NO FURTHER REQUEST AT THIS TIME.
--- NOTE | 2024-07-14 15:01 | NUR ---
PT AND BOX SHOOK PATCHER ALERTED THIS RN TO PT CRYING HYSTERICALLY AND WANTING HIM TO HAVE SOMETHING FOR ANXIETY. CALLED AND ADMINSITERED IV ATIVAN.
--- NOTE | 2024-07-14 15:54 | NUR ---
No change to heparin drip- current dose 12u/kg/hr, running at 23.3ml/hr.
--- NOTE | 2024-07-14 16:33 | NUR ---
Patient tolerated one high protein ensure bolus feed then flushed post feed with 300ml water. states to start with one canister per home routine. Patient tolerated well. Patient denies nausea.
[2024-07-14] MEDS ORDERED: diphenhydrAMINE HCL 50 MG/ML VIAL IV PRN (17:45)
--- NOTE | 2024-07-14 18:15 | NUR ---
Admin benadryl 25mg iv for reports of itching in legs. Patient in pleasant mood, no distress. remains at bedside. Call light within reach.
--- NOTE | 2024-07-14 19:43 | NUR ---
RECEIVED REPORT, VERIFIED HEPARIN RATE. PT ALERT IN BED, MENTIONS HE FEELS "TERRIBLE". REPOSITIONED PT, AND HE REPORTS FEELING BETTER. NO OTHER NEEDS PRESENTLY, CALL LIGHT IN REACH
--- NOTE | 2024-07-14 20:15 | NUR ---
PT REPORTS HE DOES NOT FEEL WELL, HE CITES ABDOMINAL PAIN AND NAUSEA. RETRIEVED MEDICATIONS, WHILE IN ROOM, PT ASKS TO CALL . DIALED FABY FROM HOSPITAL PHONE, AND GIVEN PRIVACY REQUESTED. PT ASKS TO WAIT TO GIVE MEDICATIONS UNTIL AFTER PHONE CALL. CALL LIGHT IN REACH
--- NOTE | 2024-07-14 20:48 | NUR ---
VITALS, ASSESSMENT, EVENING MEDS. PT REPORTS FEELING BETTER AFTER NAUSEA MEDICATION. REPOSITIONED PT, PROVIDED WARM BLANKETS. CALL LIGHT IN REACH
--- NOTE | 2024-07-14 21:58 | NUR ---
SPOKE WITH PT ON PHONE. SHE REPORTS THAT PT CALLED HER, AND WAS VERY TEARFUL. REPORTS HE HAS BEEN EMOTIONALLY LABILE GUSTAVO PAST FEW DAYS. PT SON IN ROOM, WHICH HAS HELPED PT ORIENTATION AND MOOD. GIVEN PRN BENADRYL FOR ITCHING BY REQUEST. REPOSITIONED PT FOR COMFORT AND PROMOTED CALMING ATMOSPHERE. CALL LIGHT IN REACH
[2024-07-15] VITALS (8 sets, daily range): BP systolic 119–147; BP diastolic 74–91
--- NOTE | 2024-07-15 00:12 | NUR ---
PT RESTING IN BED WITH CLOSED EYES. RISE AND FALL OF CHEST OBSERVED
--- NOTE | 2024-07-15 02:30 | NUR ---
PT RESTING IN BED WITH EYES CLOSED, RISE AND FALL OF CHEST OBSERVED. CALL MARC MARVIN DE LA PA[facility]
[2024-07-15 05:44] LABS: BASOPHILS 0.7 % (0-2); EOSINOPHILS 4.8 % (0-6); HEMATOCRIT 34.1 % (35.0-50.0); HEMOGLOBIN 11.6 g/dL (12.0-18.0); LYMPHOCYTES 21.4 % (24-44); MCH 29.9 (27-36); MCHC 33.9 g/dl (30-36); MCV 88.3 fl (81-99); MONOCYTES 11.2 % (0-12); NEUTROPHILS 61.9 % (39-80); PLATELET COUNT 119 K/uL (140-440); RBC 3.87 M/ul (4.3-5.7); RDW 16.8 (10.5-15.0)
[2024-07-15 05:59] LABS: ALBUMIN 2.6 g/dL (3.4-5.0); ALBUMIN/GLOBULIN RATIO 0.67 (1.1-2.4); BILIRUBIN, TOTAL 0.7 mg/dL (0.2-1.0); BUN/CREATININE RATIO 7.63 (6.0-28.6); CALCIUM 8.6 mg/dL (8.5-10.1); CREATININE, SERUM 1.44 mg/dL (0.70-1.30); MAGNESIUM 1.7 mg/dL (1.8-2.4); PROTEIN, TOTAL 6.5 g/dL (6.4-8.2)
--- NOTE | 2024-07-15 07:25 | NUR ---
REPORT REC'D FROM DHRUV MENA. PT RESTING QUIETLY. NO ACUTE DISTRESS NOTED. HEPARIN INFUSING AT 23.3ML/HR. CALL TORRES IN REACH, BED IN LOW POSITION AND LOCKED, SIDERAILS UP X3.
[2024-07-15] MEDS ORDERED: MAGNESIUM SULFATE 2 GM/50 ML BAG IV ONE (08:15)
[2024-07-15] MEDS ORDERED: POTASSIUM CHLORIDE 10 MEQ TABCR PO ONE (08:15)
[2024-07-15] MEDS ORDERED: POTASSIUM CHLORIDE 40 MEQ,LIDOCAINE HCL 1% 40 MG in DEXTROSE 5% 250 ML IV ONE (08:15)
--- NOTE | 2024-07-15 09:32 | NUR ---
ALERT AND ORIENTED IN ROOM. SPOUSE AT BEDSIDE. HE IS ASKING QUESTIONS ABOUT CHOLECYSTECTOMY. STATES IF DR. TERRAZAS RECOMMENDS HAVING PROCEDURE, HE WILL AGREE TO SURGICAL INTERVENTION. AGREES. PLAN IS TO RETURN TO [facility] ON DISCHARGE TO CONTINUE SNF. NO OTHER CM NEEDS NOTED AT THIS TIME.
--- NOTE | 2024-07-15 10:44 | NUR ---
RECEIVED CALL FROM LAB - THE HEPATITIS PANEL WILL BE SENT OUT TODAY, YESTERDAY THE SAMPLE CLOTTED. INFORMED.
--- NOTE | 2024-07-15 10:58 | NUR ---
PT NOT AVAILABLE FOR VISIT. PROVIDED PRAYER.
--- NOTE | 2024-07-15 10:59 | NUR ---
PATIENT IS IN BED AT THIS TIME, SUPERVISOR PUBLICATIONS ASSISTED DHRUV SYED IN ROTATING PATIENT, GOT NEW SHEET, PILLOWCASES, AND GOWN. SUPERVISOR PUBLICATIONS ALSO ASSISTED IN ORAL CARE, IN THE ROOM WITH HIM. CALL LIGHT WITH IN REACH AND NOTHING ELSE NEEDED AT THIS TIME.
--- NOTE | 2024-07-15 11:03 | CONS ---
[facility] [address], [place] [address] Signed DATE OF CONSULTATION: 07/13/2024 REQUESTING PHYSICIAN: Dr. Cabrera. ISSUE: Biliary sludge and possible stones (symptomatic with multiple medical problems). 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 A feeding tube was placed by Dr. Geraldo Arguello in the past number of weeks. The patient was maintained on his tube feeding, but was found at his facility to be intolerant of his tube feed having intractable abdominal pain and vomiting. His vomiting was such that some concern was made for possible aspiration. The patient has poor swallowing abilities quite obviously. Evaluation in the emergency room on July 12 at approximately 7:00 p.m. confirmed the patient to be normotensive, though mildly hypoxic requiring 2 L of nasal cannula oxygen. His creatinine was 1.5. Normal AST and ALT. Lipase normal. An abdominal CT scan was performed with known and established right common iliac venous thrombosis showing normal position of a percutaneous endoscopic gastrostomy tube as well as gallbladder sludge and consideration of possible nodular cirrhosis of the liver. He had no associated ascites. The patient has had abdominal pain following meals for quite some time actually antedating his PEG feeding tube. I called her on the phone after my visit with the patient and she affirms this. At present, patient has no complaint of abdominal pain, right or left side or epigastric in anyway. Dr. Cabrera who admitted him to the hospital, recognizes the difficulty of ongoing enteral feeding, if he does have symptomatic biliary disease and consideration is made for possible management options on that basis. The CT scan showed gallbladder sludge, but no actual well-formed stones. An ultrasound was performed, which showed gallbladder sludge, but no stones or acute cholecystitis. Heterogeneous liver parenchyma, nonspecific, most consistent with steatosis. I have reviewed the CT scan of the abdomen and in cross-sectional anatomy, the liver looks reasonably heterogeneous. The spleen is not excessively enlarged. The liver is Electronically Signed By: ARTI TERRAZAS MD 07/15/24 1103 PATIENT NAME: MAGALYS HILLIARD CONSULTATION DATE OF : 59 REPORT #: [id number] PHYSICIAN: ARTI TERRAZAS MD PCP: AIDE FELTON REPORT IS CONFIDENTIAL AND NOT TO BE RELEASED WITHOUT AUTHORIZATION [facility] [address], [place] [address] Signed somewhat hazy in appearance and without any calcific stones and may or may not be inflamed based on my evaluation. The PEG feeding tube is visualized and appears reasonably positioned overall. The pancreas appears normal. He does not have inordinate splenomegaly in any way and I detect no varices. There appears to be possible layering sludge. PAST MEDICAL HISTORY: Negative for prior drug use and he is not known to have cirrhosis in the past. PHYSICAL EXAMINATION: GENERAL: An alert and oriented, white man who has limited speech. Mucous membranes are slightly dry. NECK: Trachea is midline. CHEST: Clear. HEART: Regular without murmur. ABDOMEN: Obese and soft. There is no focal mass or tenderness and there is no ascites. He has no signs of secondary cirrhotic disease, specifically no subcutaneous venous dilation (caput medusa, etc.). EXTREMITIES: Without sequential compression device stockings at this time (appropriate based on iliac vein thrombosis). He does not have inordinate swelling of right or left leg. LABORATORY STUDIES: At admission show normal electrolytes. Creatinine 1.5. Liver enzymes normal. White count 5.2, hematocrit 39.2. Urinalysis slightly abnormal white cells 2-3 per high-power field. RBC 2-3 per high-power field. Bacteria are rare. Chest x-ray shows bibasilar peribronchial wall thickening. The CT scan of the abdomen and pelvis did confirm right common iliac venous thrombosis and suggestive of cirrhosis. ASSESSMENT: In general terms, the possibility and probability of symptomatic biliary disease accounting for his symptoms following the tube feeding is relatively high. He does not have gallstones and no sign of acute cholecystitis proper. In general terms, all things being equal cholecystectomy would be recommended. Tempering one's enthusiasm for such an intervention of course are several factors. One is his chronic anticoagulation with Eliquis, which is being withheld in favor of a heparin drip to maintain therapeutic anticoagulation related to his right-sided iliac vein thrombosis. I am uncertain when this developed and additionally, uncertain how long it has been present as far as the stability of the clot. Continued use of anticoagulant by intravenous methods is appropriate and allow any Eliquis to clear itself to keep surgical options viable. Another issue of great concern is possible cirrhosis. My own evaluation of the images Electronically Signed By: ARTI TERRAZAS MD 07/15/24 1103 PATIENT NAME: MAGALYS HILLIARD CONSULTATION DATE OF : 59 REPORT #: [id number] PHYSICIAN: ARTI TERRAZAS MD PCP: AIDE FELTON REPORT IS CONFIDENTIAL AND NOT TO BE RELEASED WITHOUT AUTHORIZATION [address] [place], [place] [address] Signed does not readily affirm that, however, it is the impression of the radiologist and that is a controlling feature. Cholecystectomy of cirrhosis is possible, though particularly hazardous as regard to the risk of bleeding. He does not have clinical stigmata of portal hypertension per se, specifically does not have splenomegaly or thrombocytopenia. His platelet count is currently 151,000. Coag studies are being monitored for his anticoagulant effect and his protime at presentation was 15.5, which is somewhat elevated and would not necessarily be attributed to his Eliquis therapy. This may indicate underlying hepatic insufficiency, which would be a testimony to cirrhosis. His liver enzymes have been normal and therefore not contributory to diagnosis regarding hepatic inflammation per se. I discussed all this with the patient and his (on the phone in her case). For now, continued IV antibiotic therapy would be appropriate. I will discuss with Dr. Cabrera tomorrow more details regarding his deep venous thrombosis and the of his underlying diagnosis of possible cirrhosis. Operative intervention to include cholecystectomy would be fraught with increased hazard if any or all of those factors are present, but may still be needed and if he is to reasonably tolerate his only source of enteral nutrition at present. Alternatively of course, parenteral nutrition is a consideration, which would have less adverse effects and this regard to enteral feeding and symptoms, but is problematic in a number of other ways not the least of which is need for intravenous access and elaborate methods of delivery not likely available in the local jail setting. Stability of the iliofemoral thrombosis is of significant importance in consideration of operative intervention as is the health of his liver. MD GERARDO Gilbert/ISABEL /[id number] cc: CHAPARRO Feliz Dr. Electronically Signed By: ARTI TERRAZAS MD 07/15/24 1103 PATIENT NAME: MAGALYS HILLIARD SAMUEL CONSULTATION DATE OF : 59 REPORT #: [id number] PHYSICIAN: ARTI TERRAZAS MD PCP: AIDE FELTON REPORT IS CONFIDENTIAL AND NOT TO BE RELEASED WITHOUT AUTHORIZATION [address] [address] Signed Copies: AIDE FELTON ~ Electronically Signed By: ARTI TERRAZAS MD 07/15/24 1103 PATIENT NAME: MAGALYS HILLIARD SAMUEL CONSULTATION DATE OF : 59 REPORT #: [id number] PHYSICIAN: ARTI TERRAZAS MD PCP: AIDE FELTON REPORT IS CONFIDENTIAL AND NOT TO BE RELEASED WITHOUT AUTHORIZATION
--- NOTE | 2024-07-15 13:41 | NUR ---
PATIENT IS IN BED AT THIS TIME, BILLING AUDITOR CHARTED OUTPUT, ROTATED PATIENT, DID CATH CARE. CALL LIGHT WITH IN REACH, IN ROOM, NOTHING ELSE NEEDED AT THIS TIME.
--- NOTE | 2024-07-15 14:30 | NUR ---
DR. GAMBINO IN TO SEE PATIENT. PT IS REPORTING DIPLOPIA AND IS HAVING INTERMITTENTLY NOTED SLURRED/GARBLED SPEECH. DR. GAMBINO STATED NO INTERVENTION IS NEEDED AT THIS TIME PATIENT HAS KNOWN DISORDER AND IS ON HEPARIN GTT. ORDER PLACED FOR SWALLOW EVAL BY EDUCATION COORDINATOR. FAMILY AT BEDSIDE.
--- NOTE | 2024-07-15 14:45 | NUR ---
DISCUSSED RESIDUAL WITH MD AND BLOW MOLD TECHNICIAN. BLOW MOLD TECHNICIAN RECOMMENDED IF NEXT RESIDUAL CHECK IS >240, ONLY ADMINISTER 1 CARTON OF ENSURE. NO NEED TO HAVE PATIENT PLACED ON TUBE FEED PUMP AT THIS TIME.
--- NOTE | 2024-07-15 16:48 | NUR ---
PATIENT IN CHAIR AT THIS TIME. THIS REPEATER OPERATOR AND REPEATER OPERATOR ERIKA HOYERED PATIENT TO CHAIR AND THEN PROVIDED PATIENT WITH WAFFLE MATTRESS AND FRESH LINENS. CALL LIGHT WITHIN REACH, NO FURTHER NEEDS AT THIS TIME.
--- NOTE | 2024-07-15 17:22 | NUR ---
CALLED TO PATIENT ROOM. PT DECREASED LOC, DISORIENTED TO PLACE AND TIME. PT QUICKLY RETURNED TO ALERT STATUS, BUT CONTINUES TO BE DISORIENTED.
--- NOTE | 2024-07-15 18:11 | NUR ---
PT CARED FOR T/O SHIFT, HAS BEEN AT BEDSIDE MOST OF SHIFT. PT TURNED AND POSITIONED Q2H AND UP TO CHAIR WITH TAIWO LIFT. NO SKIN BREAKDOWN NOTED. PT NOTED TO HAVE TWO EPISODES OF CONFUSION WITH BLURRED/DOUBLE VISION AND SLURRED SPEECH. PT HAS TOLERATED BOLUS TUBE FEEDING BOLUS, THIS AM WITH HIGH RESIDUAL. EVENING BOLUS ONLY ONE CARTON ADMINISTERED. K+ AND MG+ REPLACED. O2 @ 1LNC IN PLACE WHILE SLEEPING.
--- NOTE | 2024-07-15 19:06 | NUR ---
PATIENT WAS IN HIS CHAIR, CORRECTIONAL SUPPLY SUPERVISOR WAS GOING TO WAIT TO CHART VITALS AND I&O'S WHEN WE MOVED HIM BACK TO BED. FAMILY SHOWED UP AND HAVE BEEN IN THERE FOR A WHILE, PATIENT IS HOLDING GRANDBABY AND HAVING SOME MUCH NEEDED FAMILY TIME. HERMINIA TALKED WITH DHRUV SYED AND CLARIFIED THAT WE WOULD WAIT TILL AFTER FAMILY LEFT. FAMILY IS STILL IN THERE AT THIS TIME, AND I WILL PASS ALONG THE INFORMATION TO [facility] SHIFT HERMINIA JOHNNIE. CALL LIGHT [facility] IN REACH.
--- NOTE | 2024-07-15 19:36 | NUR ---
RECEIVED REPORT FROM DHRUV MALDONADO. PT UP IN RECLINER, VISITING W/ FAMILY. PT DENIES NEEDS AT THIS TIME. CALL LIGHT WITHIN REACH.
--- NOTE | 2024-07-15 21:30 | NUR ---
PT RESTING IN RECLINER, READY TO GET BACK IN BED. TAIWO AND 2 MAX ASSIST REQUIRED FOR TRANSFER. VSS. DENIES PAIN. ORIENTED X 3, NOT DATE OR TIME. PT HAS BASELINE RIGHT FACIAL DROOP, SOME EXP APHASIA. PERRLA. RIGHT SIDED FLACCID. REPORTS NUMBNESS TO RUE & RLE. LSC. CONTINUES ON 1L O2 N/C. HRR. BTA, HAD SMALL INC SMEAR IN BRIEF. GANT IN PLACE, UO CLEAR AND YELLOW. CATHETER CARE DONE BY HERMINIA SHEARER. PT HAS FOOT DROP BOOT TO RLE. SKIN CHECKED, INTACT. LAC SL INFUSING IV ATB. RAC IV INFUSING HEPARIN DRIP AT 23.3. CALL LIGHT WITHIN REACH.
--- NOTE | 2024-07-15 22:54 | NUR ---
PT RESTING, SON AT BEDSIDE. IV ATB COMPLETED. HEPARING DRIP CONTINUES.
--- NOTE | 2024-07-15 23:01 | NUR ---
COURT REPORTER AND DHRUV MARAVILLA PT FORM CHAIR TO BED. TAIWO SHEET REMOVED FROM UNDER PT AND PT BRIEF CHANGED. COURT REPORTER COMPLETED GANT CARE AND VITALS AND I&O OBTAINED AND DOCUMENTED. PT GIVEN WARM BLANKET AND STATES NO FURTHER NEEDS AT THIS TIME. CALL LIGHT WITHIN REACH.
[2024-07-16] VITALS (9 sets, daily range): BP systolic 131–165; BP diastolic 79–110
--- NOTE | 2024-07-16 01:18 | NUR ---
PT SLEEPING SOUNDLY, AWAKENED TO RN FLUSHING G-TUBE. G-TUBE FLUSHED W/ 300CC WATER. PT DECLINED REPOSITIONING AT THIS TIME-WILL TRY AGAIN LATER.
--- NOTE | 2024-07-16 03:09 | NUR ---
PT SLEEPING SOUNDLY. APPEARS COMFORTABLE.
[2024-07-16 05:33] LABS: BASOPHILS 0.4 % (0-2); EOSINOPHILS 5.8 % (0-6); HEMATOCRIT 34.9 % (35.0-50.0); HEMOGLOBIN 11.9 g/dL (12.0-18.0); LYMPHOCYTES 23.4 % (24-44); MCH 29.9 (27-36); MCV 87.9 fl (81-99); MONOCYTES 11.1 % (0-12); NEUTROPHILS 59.3 % (39-80); PLATELET COUNT 104 K/uL (140-440); RBC 3.98 M/ul (4.3-5.7); RDW 16.7 (10.5-15.0)
[2024-07-16 05:48] LABS: ALBUMIN 2.7 g/dL (3.4-5.0); ALBUMIN/GLOBULIN RATIO 0.68 (1.1-2.4); ANION GAP 8.1 (7-21); BILIRUBIN, TOTAL 0.5 mg/dL (0.2-1.0); BUN/CREATININE RATIO 5.42 (6.0-28.6); CALCIUM 8.7 mg/dL (8.5-10.1); CREATININE, SERUM 1.29 mg/dL (0.70-1.30); MAGNESIUM 1.9 mg/dL (1.8-2.4); POTASSIUM 3.1 mmol/L (3.5-5.1); PROTEIN, TOTAL 6.7 g/dL (6.4-8.2)
--- NOTE | 2024-07-16 06:14 | NUR ---
PTT 62.6, VERIFIED W/ DHRUV HUYNH. NO CHANGE IN HEPARIN DRIP RATE, NO BOLUS. PTT ORDERED FOR 08/17 AT 0600. HEPARIN DRIP CONTINUES AT 23.3MLS/HR TO RAC IV. PT SLEEPING SOUNDLY. 300cc WATER FLUSH ADMINISTERED TO G-TUBE.
--- NOTE | 2024-07-16 06:59 | NUR ---
Pt report received from DHRUV Arellano. Pt is resting supine in bed, eyes closed, breathing is regular, even, and non-labored. Side rails up x4, call light in reach. Pt awakens to IV pump alarm. Pt is oriented to self, location, and year, oriented to this RN (family friends). Pt states he has no sensation on his right side but that he was told he might gain some of it back. Pt denies any pain at this time. Denies any needs.
--- NOTE | 2024-07-16 07:51 | NUR ---
Received a note to call Dr. Cabrera back about this pt. Dr. Cabrera advised he will stop heparin since it seems as though the pt will not be having surgery, and he will restart eliquis tomorrow. He states we will focus on making sure he has a swallow study today.
[2024-07-16] MEDS ORDERED: POTASSIUM CHLORIDE 40 MEQ,LIDOCAINE HCL 1% 40 MG in DEXTROSE 5% 250 ML IV ONE (09:00)
[2024-07-16] MEDS ORDERED: POTASSIUM BICARBONATE/CIT AC 20 MEQ TABEF PO ONE (09:00)
--- NOTE | 2024-07-16 09:05 | NUR ---
PATIENT ONLY RECEIVED 2 CARTONS YESTERDAY MORNING BUT HAD 250 ML RESIDUAL. RN GAVE HIM ONLY 1 CARTON OF ENSURE PLUS HIGH PROTEIN FOR DINNER DUE TO 200 ML RESIDUAL. DISCUSSED WITH DHRUV BARAJAS, AND DR. GAMBINO TO TRY BOLUS FEEDING 1 CARTON OF ENSURE PLUS HIGH PROTEIN EVERY 2 HRS, TOTAL OF 6 CARTON PER DAY. WE WILL SEE HOW HE DOES WITH THIS REGIMEN. PATIENT TO HAVE AN MBS STUDY THIS AFTERNOON. CONTINUE 300 ML WATER FLUSH Q 4 HRS. 6 CARTONS OF ENSURE PLUS HIGH PROTEIN WILL PROVIDE 2160 CALORIES AND 120 GM PROTEIN PER DAY. RD WILL FOLLOW UP TOMORROW.
--- NOTE | 2024-07-16 11:09 | NUR ---
2PA WITH DHRUV BARAJAS FOR A BED BATH. A CLEAN BRIF AND GOWN WERE PROVIDED. CATHETER CARE PERFORMED. A WARM BLANKET AND ICE CHIPS WERE GIVEN.
[2024-07-16 11:14] LABS: HEPATITIS B SURFACE ANTIBODY <3.10 IU/L (())
[2024-07-16 11:21] LABS: HEPATITIS B SURFACE ANTIGEN Negative (Negative)
[2024-07-16 11:43] LABS: HBV CORE ANTIBODIES,TOTAL Negative (Negative)
--- NOTE | 2024-07-16 11:49 | NUR ---
When speaking with Dr. Cabrera early this morning, he advised that the pt could have ice chips if tolerated. Confirmed with speech therapy that this would not interfere with the swallow study scheduled for this afternoon. Pt provided with ice chips and is being monitored by his , Angeline, after this RN monitored the first couple of ice chips. Pt is tolerating them well with no issues. Reinforced education on proper technique to facilitate swallowing. Call light in reach.
--- NOTE | 2024-07-16 12:00 | NUR ---
INTO SEE PATIENT. AT BEDSIDE. PATIENT AND DISCUSSING NEW FEEDING PLAN. PATIENT RECORDS SENT TO [facility]. NO OTHER CM NEEDS AT THIS TIME.
--- NOTE | 2024-07-16 12:21 | NUR ---
Dr. Dsouza in with pt at this time.
--- NOTE | 2024-07-16 12:21 | NUR ---
Per Dr. Dsouza, should hold afternoon feeding until after pt has the barium swallow study completed.
[2024-07-16 12:50] LABS: HEPATITIS C AB CIA INTERP Negative (Negative); HEPATITIS C ANTIBODY CIA INDEX 0.16 IV (())
--- NOTE | 2024-07-16 13:16 | NUR ---
VISITED WITH IN HALLWAY. INDICATED PT DOING MUCH BETTER, SEEMS HAPPIER. NO IMMEDIATE NEEDS. PROVIDED PRAYER.
--- NOTE | 2024-07-16 13:50 | NUR ---
Imaging here to transfer pt to radiology for swallow study. 5-person slide board transfer from bed to stretcher. Linen change done at this time.
--- NOTE | 2024-07-16 14:25 | NUR ---
Pt back in bed
--- NOTE | 2024-07-16 14:57 | NUR ---
DR GAMBINO NOTIFIED REGARDING PT'S SWALLOW EVAL, ORDERS RECEIVED.
--- NOTE | 2024-07-16 15:54 | NUR ---
IV INFUSION COMPLETE. IV SITE FLUSHED WITH 10 ML NORMAL SALINE AND IS SALINE LOCKED. IV PUMP CLEARED OF INTAKE FLUIDS. PATIENT STATED NO FURTHER NEEDS AT THIS TIME. CALL LIGHT AND PERSONAL BELONGINGS ARE WITHIN REACH. PATIENT WITH A VISITOR SITTING IN THE RECLINER AT BEDSIDE.
[2024-07-16 16:32] LABS: HEPATITIS BE ANTIGEN Negative (Negative)
[2024-07-16 17:50] LABS: HEPATITIS BE ANTIBODY Negative (Negative)
--- NOTE | 2024-07-16 18:30 | NUR ---
Pt's stated he ate most of his dinner and tolerated it well without any problems swallowing.
--- NOTE | 2024-07-16 19:39 | NUR ---
REPORT RECEIVED FROM DAY SHIFT RN. PATIENT RESTING IN BED. DENIES NEEDS AT THIS TIME. CALL LIGHT IN REACH.
--- NOTE | 2024-07-16 21:00 | NUR ---
PATIENT RESTING IN BED. VS AND I&Os OBTAINED AND RECORDED. SCHEDULED MEDICATION ADMINISTERED. TWO SLIDE SHEETS UNDER PATIENT. ONE DRAW SHEET REMOVED AND NEW BREIF IN PLACE. GANT CATH CARE PROVIDED PER ORDER. PATIENT REPOSITIONED IN BED WITH PILLOWS UNDER RIGHT SIDE. PILLOW PLACED UNDER RIGHT HAND. ROLLED UP TOWEL PLACED IN PATIENTS RIGHT HAND. SCDs IN PLACE. SCHEDULED MEDICATIONS ADMINSITERED. PATIENT RAULITO WELL. ASSESSMENT COMPLETE. PATIENT DENIES FURTHER NEEDS AT THIS TIME. CALL LIGHT IN REACH.
--- NOTE | 2024-07-16 22:43 | NUR ---
PRIMARY RN ARTI IN pt ROOM FOR REPORT OF CHEST PAIN. PER PROTOCOL, ORDER FOR EKG PLACED AND RT MONICA TO COMPLETE.
--- NOTE | 2024-07-16 22:55 | NUR ---
CALL LIGHT ANSWERED. THIS RN TO ROOM. PATIENT STATES "MY CHEST HURTS IT FEELS LIKE SOMETHING IS CRUSHING IT". VS OBTAINED AND RECORDED. PATIENT HAVING NAUSEA. PRN NAUSEA MEDICATION ADMINSITERED. TELEPHONE CALL PLACED TO MD GAMBINO. NEW ORDERS RECEIVED. VERIFIED USING REPEAT BACK METHOD.
[2024-07-16] MEDS ORDERED: LORazepam 2 MG/ML VIAL IV PRN (23:00)
--- NOTE | 2024-07-16 23:17 | NUR ---
PRN ANXIETY MEDICATION ADMINISTERED. PATIENT STATES THAT HE IS FEELING MUCH BETTER. PATIENT HAS NO FURTHER NEEDS. BED ALARM ON.
[2024-07-17] VITALS (9 sets, daily range): BP systolic 132–152; BP diastolic 81–92
--- NOTE | 2024-07-17 00:14 | NUR ---
PATIENT RESTING IN BED WITH EYES CLOSED. FALL MATS IN PLACE. PATIENT O2 SAT 86% ON RA. 2L NC PLACED IN PATIENT. PATIENT O2 91% ON 2L NC. CALL LIGHT WITHIN REACH.
--- NOTE | 2024-07-17 02:08 | NUR ---
PATIENT RESTING IN BED ON BACK WITH EYES CLOSED. RESPIRATIONS EVEN AND UNLABORED. CALL LIGHT IN REACH. 02 94% ON 2L NC.
--- NOTE | 2024-07-17 02:37 | NUR ---
CELESTINO IS ASLEEP ON A 2L NC. CELESTINO WILL NEED A HOME O2 EVAL DONE PRIOR TO DISCHARGE.
[2024-07-17 05:12] LABS: BASOPHILS 0.9 % (0-2); EOSINOPHILS 6.6 % (0-6); HEMOGLOBIN 11.8 g/dL (12.0-18.0); LYMPHOCYTES 19.2 % (24-44); MCH 29.8 (27-36); MCHC 33.8 g/dl (30-36); MCV 88.4 fl (81-99); MONOCYTES 11.3 % (0-12); PLATELET COUNT 111 K/uL (140-440); RBC 3.96 M/ul (4.3-5.7); RDW 17.3 (10.5-15.0)
[2024-07-17 05:26] LABS: ALBUMIN 2.6 g/dL (3.4-5.0); ALBUMIN/GLOBULIN RATIO 0.63 (1.1-2.4); ANION GAP 8.3 (7-21); BILIRUBIN, TOTAL 0.6 mg/dL (0.2-1.0); BUN/CREATININE RATIO 5.88 (6.0-28.6); CALCIUM 8.6 mg/dL (8.5-10.1); CREATININE, SERUM 1.36 mg/dL (0.70-1.30); POTASSIUM 3.3 mmol/L (3.5-5.1); PROTEIN, TOTAL 6.7 g/dL (6.4-8.2)
--- NOTE | 2024-07-17 05:32 | NUR ---
PATIENT RESTING IN BED WITH EYES CLOSED. RESPIRATIONS EVEN AND UNLABORED. CALL LIGHT IN REACH.
--- NOTE | 2024-07-17 06:32 | NUR ---
PATIENT RESTING IN BED. VS AND I&Os OBTAINED AND RECORDED. PATIENT REPOSITIONED IN BED WITH PILLOWS PLACED UNDER LEFT SIDE OF BODY. SCDs IN PLACE. HEEL PROTECTOR ON RIGHT FOOT. RIGHT ARM ELEVATED WITH ROLLED UP TOWEL PLACED IN HAND. FALL MATS IN PLACE. BED ALARM ON. CALL LIGHT IN REACH.
--- NOTE | 2024-07-17 07:02 | NUR ---
Pt report received from DHRUV Willams. Pt is resting supine in bed with HOB elevated, eyes closed, breathing is regular, even, and non-labored, O2 at 2LPM via NC while asleep, SPO2 at 93%. Side rails up, floor mats down, call light in reach. White board updated.
--- NOTE | 2024-07-17 08:26 | NUR ---
faxed updates to [facility]
--- NOTE | 2024-07-17 08:56 | NUR ---
HERMINIA ASSISTED WITH RADIOLOGY - PT HAD CHEST X-RAY COMPLETED BREAKFAST BROUGHT IN, GOT PT FRESH WATER EDUCATED SOLUTIONS EXECUTIVE CLOUD SALES LIGHT, CALL LIGHT WITHIN REACH PT REPORTED THAT HE DOES NOT LIKE HIS BREAKFAST, WANTED HIS FOOD WARMER SPEECH THERAPIST IN ROOM FEEDING HIM BREAKFAST HERMINIA KENDALL WASHED PT'S FACE NOTHING ELSE NEEDED AT THIS TIME
[2024-07-17] MEDS ORDERED: APIXABAN 5 MG TAB PO SCH (09:00)
[2024-07-17] MEDS ORDERED: POTASSIUM CHLORIDE 20 MEQ/15 ML CUP PO ONE (09:00)
[2024-07-17] MEDS ORDERED: carvediloL 6.25 MG TAB PT SCH (09:00)
[2024-07-17] MEDS ORDERED: POTASSIUM CHLORIDE 10 MEQ TABCR PO ONE (09:45)
[2024-07-17] MEDS ORDERED: LORazepam 1 MG TAB PO PRN (11:00)
[2024-07-17] MEDS ORDERED: diphenhydrAMINE HCL 25 MG CAP PO PRN (11:00)
[2024-07-17] MEDS ORDERED: DICYCLOMINE HCL 10 MG CAP PO PRN (11:00)
--- NOTE | 2024-07-17 12:00 | NUR ---
RECIEVED REPORT FROM DHRUV BARAJAS. PT LYING IN BED ON R SIDE SUPPORTED BY WAFFLE MATTRESS AND PILLOWS AROUND BONY PROMINENCES. PT AWAKE, AT THE BEDSIDE. PT GIVEN LUNCH ORDERED, ASSISTING WITH TRAY SETUP AND PT ATTEMPTS TO FEED HIMSELF SUCCESSFULLY. PT AND STATE NO CURRENT NEEDS. CALL LIGHT WITHIN REACH.
--- NOTE | 2024-07-17 12:21 | NUR ---
2 HEALTH INFORMATION ASSISTANT'S REPOSITIONED PT ON HIS RIGHT SIDE, PLACED PILLOW UNDER LEFT ARM AND LEFT LEG, TOOK FOOT CUSHION BOOT OFF AFTER PT REQUEST GOT PT NEW TOP SHEET, HE STATED HE WAS TOO HOT AND WANTED THE TOP BLANKET OFF HIS LEGS GOT PT APPLE JUICE AND FRESH ICE WATER CALL LIGHT WAS WITHIN REACH AND PT HAD FAMILY MEMBER IN ROOM BED LOWERED AND LOCKED NOTHING ELSE NEEDED AT THIS TIME
--- NOTE | 2024-07-17 12:45 | EKG ---
[facility] [address] [facility] [place] [address] Signed Normal sinus rhythm Left axis deviation Inferior infarct , age undetermined Abnormal ECG When compared with ECG of 27-JUN-2024 16:46, Inferior infarct is now present Confirmed by Lindsey Gambino DO ([id number]) on 07/17/2024 12:45:05 PM Electronically Signed By: LINDSEY GAMBINO DO 07/17/24 1245 PATIENT NAME: MAGALYS HILLIARD Electrocardiogram DATE OF : 59 PHYSICIAN: LINDSEY GAMBINO DO REPORT #: [id number] REPORT IS CONFIDENTIAL AND NOT TO BE RELEASED WITHOUT AUTHORIZATION
--- NOTE | 2024-07-17 13:16 | NUR ---
SPOKE WITH CAROLINA AT [facility]. THEY CAN ACCEPT PATIENT BACK TO FACILITY ON SATURDAY FOR RETURN TO SNF.
--- NOTE | 2024-07-17 14:12 | NUR ---
PT WAS REPOSITIONED TO THE LEFT SIDE AND MOVED UP IN HIS BED PT HAD A FAMILY MEMBER VISITING PT HAD ICE WATER IN CUP WITH STRAW CALL LIGHT ON LAP, PERSONAL ITEMS WITHIN REACH NOTHING ELSE NEEDED AT THIS TIME
--- NOTE | 2024-07-17 15:35 | NUR ---
PT LYING IN BED ON LEFT SIDE, RESTING WITH EYES CLOSED, CALL LIGHT WTIHIN REACH. AT THE BEDSIDE RESTING WITH EYES CLOSED.
--- NOTE | 2024-07-17 16:05 | NUR ---
PT AWAKE IN BED, REQUESTS ICE CHIPS, GIVEN. PT AT THE BEDSIDE. PT AND STATE NO FURTHER NEEDS AT THIS TIME. CALL LIGHT WITHIN REACH.
--- NOTE | 2024-07-17 16:07 | NUR ---
PATIENT PASSED THE MBS STUDY YESTERDAY AFTERNOON SHOWING NO SIGNS OF ASPIRATION AND HAS FULL SWALLOWING ABILITY. DIET ORDER IS LOW-FAT, SOFT & BITE SIZED TEXTURE. PATIENT DIDN'T LIKE HIS BREAKFAST TODAY SO ONLY ATE A FEW BITES OF DICED POTATOES AND CHEESE OMELET. HE DID EAT 80% OF HIS LUNCH TODAY. I MET WITH PATIENT TO OBTAIN FOOD PREFERENCES. I REMINDED HIM THAT HE IS ON A LOW-FAT DIET SO WE CAN'T SEND A CHEESEBURGER LIKE HE WANTED THE OTHER DAY. WE HAVE TO STICK TO OUR PARAMETERS FOR FAT GRAMS. HE UNDERSTOOD. NUTRITION GOAL IS FOR PATIENT TO CONSUME 75% OR MORE OF MEALS. CONSIDER PROVIDING AN ENSURE MAX PROTEIN (THE LOWEST FAT ORAL NUTRITION SUPPLEMENT) IF PATIENT CONSUMES LESS THAN 50% OF A MEAL. BOLUS TUBE FEEDS ARE ON HOLD. NURSING MONITORIN I&O'S FOR FLUID CONSUMPTION, OTHERWISE PATIENT WILL NEED WATER FLUSHES VIA THE G-TUBE TO STAY HYDRATED. IVF HAVE BEEN D/C'D. RD WILL FOLLOW UP IN 3 DAYS.
--- NOTE | 2024-07-17 16:46 | NUR ---
THIS RN DISCUSSES NEUROPTHAMOLOGIST REFERRAL ORDER WITH DR. BURK. STATES TO D/T PCP NEEDING TO DO REFERRAL.
[2024-07-17] MEDS ORDERED: ATORVASTATIN 40 MG TAB PO SCH (17:00)
--- NOTE | 2024-07-17 17:45 | NUR ---
HERMINIA KENDALL STATES TO THIS RN THAT "PT IS CHOKING". THIS RN, WELL CHARGE GREGORY, RN, CAMDEN, RN AND CARLA RN REPORT TO BEDSIDE. PT AT BEDSIDE. PT ABLE TO SPEAK AT THIS TIME, STATES HE BELIEVES A PIECE OF RICE FROM HIS DINNER TRAY CAUSED CHOKING. PT THEN BEGINS TO ATTEMPT TO COUGH, SUCTION UTILIZED, PT CLEARS WITH COUGH AFTER SUCTION. PT STATES "I FEEL A BIT BETTER NOW". STATS TO HAVE RT EVALUATE, RT CALLED. PT AND REQUEST TO NOT HAVE RICE ON TRAYS WHILE HERE, ADDED TO DIET ORDER. PT STATES NO FURTHER NEEDS AT THIS TIME, CALL LIGHT WTIHIN REACH.
--- NOTE | 2024-07-17 18:03 | NUR ---
PT'S VISITOR CAME TO HIS DOOR AND SAID "HE IS CHOKING!" HERMINIA KENDALL WENT TO GET PT'S NURSE, HERMINIA KITCHEN WENT INTO PT'S ROOM PT WAS COUGHING AND BREATHING, HE STATED "THINK I COUGHED IT UP" MANY NURSES AND THE HOSPITALIST CAME INTO PT'S ROOM, PT'S NURSE GOT A SUCTION - BUT NOTHING CAME UP - PT COUGHED A COUPLE MORE TIMES RESPIRATORY THERAPY WAS CALLED - AND ARRIVED IN ROOM.
--- NOTE | 2024-07-17 18:59 | NUR ---
GANT CARE COMPLETED. NEW IV DRESSING PLACED ON L AC IV D/T OLD DRESSING LIFTING. G TUBE FLUSHED WITH 60ML WATER PER ORDER. PT STATES NO FURTHER NEEDS AT THIS TIME, FAMILY AT THE BEDSIDE, CALL LIGHT WITHIN REACH.
--- NOTE | 2024-07-17 19:23 | NUR ---
PT WAS TURNED FROM HIS BACK TO HIS RIGHT SIDE, GOWN CHANGED, CALL BUTTON EDUCATION WAS GIVEN AND IT WAS PLACED ON HIS LAP TURNED OVER PATIENT TO NOC SHIFT NURSE/DIRECTOR OF ALUMNI RELATIONS PT IN LOW FOWLERS POSITION ON HIS RIGHT SIDE CALL BUTTON ON LAP LIGHTS TURNED DOWN WATER WITHIN REACH NOTHING ELSE NEEDED AT THIS TIME
--- NOTE | 2024-07-17 19:28 | NUR ---
REPORT RECEIVED FROM DAYSHIFT RN. PATIENT RESTING IN BED, WATCHING TV. RESPIRATIONS EVEN AND UNLABORED. CPOX AT BEDSIDE, PATIENT DENIES ANY NEEDS, CALL LIGHT IN REACH.
--- NOTE | 2024-07-17 20:45 | NUR ---
PATIENT SITTING UPRIGHT IN BED, WATCHING TV. PLEASENT AND HAVING FULL CONVERSATIONS. REPOSITIONED, SCHEDULED MEDICATIONS ADMINISTERED PER ORDER. NO FURTHER NEEDS IDENTIFIED, ASSESSMENT COMPLETED, CALL LIGHT IN REACH. VS OBTAINED AND RECORDED.
[2024-07-17] MEDS ORDERED: GABAPENTIN 300 MG CAP PO SCH (21:00)
[2024-07-17] MEDS ORDERED: carvediloL 6.25 MG TAB PO SCH (21:00)
[2024-07-17] MEDS ORDERED: TRAZODONE HCL 50 MG TAB PO SCH (21:00)
--- NOTE | 2024-07-17 22:19 | NUR ---
PATIENT AWAKE WHEN RN ENTERED ROOM, HEEL PROTECTOR PLACED ON RIGHT FOOT. PATIENT REPORTS BEING COMFORTABLE. DENIES ANY NEEDS, CPOX IN PLACE. CALL LIGHT IN REACH
--- NOTE | 2024-07-17 23:31 | NUR ---
PATIENT REPOSITIONED. RESTING WITH EYES CLOSED, RESPIRATIONS EVEN AND UNLABORED. CPOX AT BEDSIDE, DESAT TO 88%. NC 2L PLACED ON PATIENT FOR SLEEP. CALL LIGHT IN REACH.
[2024-07-18] VITALS (11 sets, daily range): BP systolic 119–139; BP diastolic 75–85
--- NOTE | 2024-07-18 02:05 | NUR ---
PATIENT REPOSITIONED SELF, CONTINUES TO REST WITH EYES CLOSED. RESPIRATIONS EVEN AND UNLABORED. NO NEEDS IDENITFIED. CPOX AT BEDSIDE, NC IN PLACE. 2L. CALL LIGHT IN REACH
--- NOTE | 2024-07-18 04:22 | NUR ---
GANT CATH EMPTIED, PATIENT REPOSITIONED. PATIENT CONTINUES TO REST, EASILY WOKE TO RN SPEAKING. ANSWERS QUESTIONS APPROPRIATELY. RESPIRATIONS EVEN AND UNLABORED. NO NEEDS IDENITFIED, CALL LIGHT IN REACH
[2024-07-18 05:12] LABS: BASOPHILS 0.8 % (0-2); EOSINOPHILS 7.9 % (0-6); HEMATOCRIT 36.1 % (35.0-50.0); HEMOGLOBIN 12.2 g/dL (12.0-18.0); LYMPHOCYTES 23.3 % (24-44); MCH 29.9 (27-36); MCHC 33.8 g/dl (30-36); MCV 88.5 fl (81-99); MONOCYTES 12.6 % (0-12); NEUTROPHILS 55.4 % (39-80); PLATELET COUNT 107 K/uL (140-440); RBC 4.07 M/ul (4.3-5.7); RDW 17.2 (10.5-15.0)
[2024-07-18 05:24] LABS: ANION GAP 10.6 (7-21); BUN/CREATININE RATIO 6.2 (6.0-28.6); CREATININE, SERUM 1.29 mg/dL (0.70-1.30); MAGNESIUM 1.9 mg/dL (1.8-2.4); POTASSIUM 3.6 mmol/L (3.5-5.1)
--- NOTE | 2024-07-18 05:38 | NUR ---
VS OBTAINED AND RECORDED. PATIENT REPOSITIONED. GT FLUSHED WITH 60 ML WATER PER ORDER, INTAKE AND OUTPUT RECORDED. PATIENT CONTINUING TO REST, DENIES ANY NEEDS. CALL LIGHT IN REACH. CPOX AT BEDSIDE, 2L NC IN PLACE FOR SLEEP. RESPIRATIONS ARE EVEN AND UNLABORED. PERICARE PROVIDED.
[2024-07-18] MEDS ORDERED: POTASSIUM CHLORIDE 20 MEQ/15 ML CUP PO ONE (07:15)
--- NOTE | 2024-07-18 07:20 | NUR ---
REPORT RECEIVED FROM DHRUV WHITTAKER. PATIENT RESTING IN BED, WAKES WHEN THIS RN ENTERS. PATIENT HAS 2LNC IN PLACE, CPOX AT BEDSIDE. PATIENT HAS NO REQUESTS, CALL LIGHT AND PERSONAL BELONGINGS IN REACH.
[2024-07-18] MEDS ORDERED: buPROPion HCL 75 MG TAB PO SCH (09:00)
[2024-07-18] MEDS ORDERED: LANSOPRAZOLE 30 MG TABDIS PO SCH (09:00)
[2024-07-18] MEDS ORDERED: TAMSULOSIN HCL 0.4 MG CAP PO SCH (09:00)
[2024-07-18] MEDS ORDERED: DULOXETINE HCL 60 MG CAP PO SCH (09:00)
--- NOTE | 2024-07-18 09:03 | NUR ---
PATIENT IS SITTING UP IN BED. BREAKFAST TRAY WAS BROUGHT IN AND SET UP.
--- NOTE | 2024-07-18 10:05 | NUR ---
MD IN TO ASSESS AND VISIT PATIENT AND PATIENT'S . MD GIVES VERBAL ORDER FOR MELATONIN 6MG AT HS - ORDER PLACED. MD ANSWERS AND ADDRESSES ALL QUESTIONS AND CONCERNS.
--- NOTE | 2024-07-18 11:32 | NUR ---
PATIENT IS REPOSITIONED WITH THIS RN AND DHRUV GODFREY. ASSESSMENT COMPLETE. PATIENT DENIES NAUSEA OR ABDOMINAL DISCOMFORT AFTER EATING BREAKFAST THIS MORNING. BOWEL TONES ARE ACTIVE THROUGHOUT, ABDOMEN IS SOFT AND NON-TENDER. G-TUBE SITE CARE PERFORMED WITH WARM WATER, PATTED DRY, SMALL AMOUNT OF FOAM TAPE APPLIED TO UPPER PORTION OF G-TUBE INSERTION SITE PER PATIENT REQUEST. PATIENT ASSISTED TO SIT HIGH IN BED, TOOTHBRUSH WITH TOOTHPASTE, KIDNEY BASIN, WATER, AND MOUTHWASH SET UP. PATIENT PROVIDES HIS OWN ORAL CARE WITH VERBAL CUEING. IV TO PATIENT'S R AC IS NOT PATENT, PATIENT COMPLAINS OF BURNING WHEN ATTEMPTING TO FLUSH. IV REMOVED, SITE WRAPPED IN GAUZE AND COBAN. THE IV TO PATIENT'S L AC FLUSHES WNL, SALINE LOCKED AT THIS TIME. LUNG SOUNDS ARE CLEAR IN BUL, DIMINISHED IN BLL. PATIENT DENIES SHORTNESS OF BREATH, CURRENTLY ON ROOM AIR, CPOX AT BEDSIDE. PATIENT DENIES COUGH, PATIENT'S REPORTS COUGHING AFTER DRINKING. PATIENT HAS NO REQUESTS, CALL LIGHT AND PERSONAL BELONGINGS IN REACH.
--- NOTE | 2024-07-18 14:49 | NUR ---
PATIENT IS SITTING UP IN BED VISITING WITH FAMILY. FRESCH ICE WATER AND A CUP OF ICE CHIPS WERE PROVIDED.
--- NOTE | 2024-07-18 15:18 | NUR ---
PATIENT RESTING IN BED WITH MULTIPLE FAMILY MEMBERS PRESENT. PATIENT DENIES ANY PAIN OR DISCOMFORT. REPORTS LUNCH WENT WELL, NO COMPLAINTS OF ASPIRATION, NAUSEA, OR ABDOMINAL DISCOMFORT. BOWEL TONES ARE ACTIVE. PATIENT ENDORSES SOME TENDERNESS WITH PALPATION TO THE LLQ. ABDOMEN IS SOFT. PATIENT HAS HEEL PROTECTOR IN PLACE TO RIGHT FOOT, ROLLED TOWEL IN HIS RIGHT HAND. PATIENT HAS NO REQUESTS. CALL LIGHT AND PERSONAL BELONGINGS IN REACH.
--- NOTE | 2024-07-18 15:50 | NUR ---
PATIENT'S SON COMES TO NURSE'S STATION TO ALERT THIS RN AND OTHER RNs THAT PATIENT IS CHOKING. THIS RN, DHRUV HANNAH, AND DHRUV GODFREY GO TO PATIENT'S ROOM TO RESPOND. PATIENT IS IN BED WITH HOB ELEVATED APPROXIMATELY 30 DEGREES, PATIENT'S FAMILY HAS FILIPINO FOOD AND HE HAD BEEN EATING THIS WHILE TALKING AND LAUGHING. PATIENT'S FAMILY STATES THAT PATIENT BEGAN CHOKING. WHEN THESE RNs ENTER, PATIENT IS COUGHING WITH DROOL AND CHUNKS OF FOOD ON HIS CHIN. HOB PROMPTLY ELEVATED TO 90 DEGREES, PATIENT ENCOURAGED TO CONTINUE COUGHING AND SPIT INTO EMESIS BAG. PATIENT SUPPLIED WITH WET WASH CLOTH, CONTINUES COUGHING AND BLOWING HIS NOSE. PATIENT ATTEMPTS TO SPEAK BUT ENCOURAGED NOT TO AND TO CONTINUE COUGHING. PATIENT COUGHING BEGINS TO SLOW AND PATIENT CATCHES HIS BREATH. PATIENT REPORTS HE NO LONGER FEELS ANYTHING STUCK IN HIS THROAT. PATIENT OFFERED A DRINK OF WATER, DRINKS, SWALLOWS, AND TOLERATES WELL. CPOX AT BEDSIDE SUSTAINS SPO2>95% THROUGHOUT EPISODE. PATIENT IS ON ROOM AIR. DHRUV GODFREY EDUCATES PATIENT AND PATIENT FAMILY MEMBERS ON EATING SLOWLY, TAKING SMALL BITES, AND NOT LAUGHING AND TALKING WHILE EATING. PATIENT VERBALIZES UNDERSTANDING. LUNG SOUNDS ARE CLEAR IN BUL WITH FAINT CRACKLES IN THE BLL. PATIENT DENIES SHORTNESS OF BREATH OR CHEST DISCOMFORT. HOB DECREASED TO 45 DEGREES AT THIS TIME. PATIENT IS BREATHING EASILY AND CONVERSING WITH HIS FAMILY. NO REQUESTS, CALL LIGHT AND PERSONAL BELONGINGS IN REACH.
--- NOTE | 2024-07-18 16:05 | NUR ---
NOTIFIED OF PATIENT'S ASPIRATION EPISODE. HAS NO NEW ORDERS AT THIS TIME.
--- NOTE | 2024-07-18 18:46 | NUR ---
BED BATH AND GANT CATH CARE COMPLETE BY THIS RN AND HERMINIA GARCIA. FRESH GOWN AND TOP SHEET APPLIED. ROM EXERCISES PERFORMED WITH PATIENT'S RIGHT ARM AND RIGHT LEG. PATIENT HAS SOME MOVEMENT IN HIS RIGHT TOES, UN-CONTROLLED BY HIM. DEODERANT ALSO APPLIED. PATIENT IS REPOSITIONED ONTO HIS LEFT SIDE, HAS NO REQUESTS. IS IN ROOM THROUGHOUT. CALL LIGHT AND PERSONAL BELONGINGS IN REACH.
[2024-07-18] MEDS ORDERED: MELATONIN 3 MG TAB PO SCH (21:00)
--- NOTE | 2024-07-18 21:09 | NUR ---
Awake, alert and oriented. talkative, on room air. lungs clear bilat dim at bases. abd large doft, CM PEG tube patent, flushed as per orders. f/c in place, patent. care done. Repositioned nad turned, cooperative. edema and gross movement to R hand. rolled up towel in hands. edema to LE, R foot drop present. heel protector in place. elevated with pillows. HOB elevated. took meds w/o problems. one by one, did chin tuck, coughed once. No c/o pain. Family in room.
--- NOTE | 2024-07-18 21:49 | NUR ---
Pt CPOX 89%, kika at this time. O2 2LNC placed on. Family in room.
[2024-07-19] VITALS (10 sets, daily range): BP systolic 115–138; BP diastolic 68–84
--- NOTE | 2024-07-19 00:25 | NUR ---
RESTING, NO SS/X DISTRESS, ON 2LNC, CPOX ON AT BEDSIDE. FAMILY IN ROOM
--- NOTE | 2024-07-19 03:12 | NUR ---
EYES CLOSED, ON 2LNC. CPOX ON AT BEDSIDE. NO S/SX DISTRESS. REPOSITIONED IN BED, F/C PATENT. R ARM ELEVATED
[2024-07-19 05:09] LABS: BASOPHILS 0.8 % (0-2); EOSINOPHILS 6.6 % (0-6); HEMATOCRIT 36.5 % (35.0-50.0); HEMOGLOBIN 12.3 g/dL (12.0-18.0); LYMPHOCYTES 23.4 % (24-44); MCHC 33.7 g/dl (30-36); NEUTROPHILS 58.2 % (39-80); PLATELET COUNT 108 K/uL (140-440); RDW 16.9 (10.5-15.0)
[2024-07-19 05:19] LABS: ANION GAP 11.6 (7-21); BUN/CREATININE RATIO 7.4 (6.0-28.6); CALCIUM 8.9 mg/dL (8.5-10.1); CREATININE, SERUM 1.35 mg/dL (0.70-1.30); MAGNESIUM 1.9 mg/dL (1.8-2.4); POTASSIUM 3.6 mmol/L (3.5-5.1)
--- NOTE | 2024-07-19 05:36 | NUR ---
Awakens easily, no c/o pain or sob. O2 off, cpox on at bedside, sats WNL. Cooperative with vitals and repositioning. f/c patent. heel protectors R leg, R hand elevated in pillows, improvced decreaed edema. family in room
--- NOTE | 2024-07-19 07:30 | NUR ---
RECIEVED REPORT FROM DHRUV QUICK. PT RESTING IN BED WITH EYES CLOSED, BREATHING EVEN AND UNLABORED. AT THE BEDSIDE. CALL LIGHT WITHIN REACH.
--- NOTE | 2024-07-19 08:12 | NUR ---
HOURLY ROUNDING. PATIENT IS SLEEPINF. BOARD HAS BEEN UPDATED AND CALL LIGHT PLACED WITHIN REACH
--- NOTE | 2024-07-19 08:30 | NUR ---
PT SITTING UP IN BED, TAKES PO MEDS WITH ASSISTANCE FROM THIS RN TO PLACE IN MOUTH, SWALLOWS W/O DIFFICULTY. DAUGHTER AT THE BEDSIDE. PT DENIES PAIN AT THIS TIME. PT TURNED BY THIS RN AND BATTING MACHINE OPERATOR INSULATION ONTO LEFT SIDE. PT STATES HE "FEELS FINE" AFTER TURNING. BREAKFAST TRAY SET UP, PT STATES HIS WILL BE BACK "SOON" AND THAT HE WILL WAIT FOR HER TO START EATING. PT STATES NO FURTHER NEEDS AT THIS TIME, CALL LIGHT WITHIN REACH. CPOX OFF PT IS AWAKE.
[2024-07-19] MEDS ORDERED: carvediloL 3.125 MG TAB PO SCH (09:00)
[2024-07-19] MEDS ORDERED: POTASSIUM CHLORIDE 20 MEQ/15 ML CUP PO ONE (09:00)
--- NOTE | 2024-07-19 09:05 | NUR ---
PT'S CALLS THIS RN AND FORESTRY WORKER TO ROOM TO MOVE PT, PT IS LEANING TO LEFT SIDE AND STATES HE WOULD LIKE TO BE ADJUSTED TO SIT UP AND EAT. PT MOVED, CONTINUES TO BE FLOATED ON R SIDE TO REDUCE PRESSURE, PILLOWS PROTECTING NICOLE PROMINENCES. PT STATES HE IS COMFORTABLE AT THIS TIME AND BEGINS TO EAT BREAKFAST INDEPENDENTLY. PT AND FAMILY STATE NO FURTHER NEEDS AT THIS TIME, CALL LIGHT WITHIN REACH.
[2024-07-19] MEDS ORDERED: MAGNESIUM CITRATE 300 ML BTL PO ONE (09:45)
--- NOTE | 2024-07-19 10:46 | NUR ---
GANT CATHETER D/C'D, 250CC URINE ACCOUNTED FOR. ATTENDS AND PAD IN PLACE. PATIENT DRANK SOME OF HIS MAG CITRATE, REFUSED THE REST. PATIENT HOYERED TO CHAIR, BED LINENS CHANGED. IS IN ROOM WITH PATIENT. NO OTHER NEEDS AT THIS TIME.
--- NOTE | 2024-07-19 11:57 | NUR ---
PATIENT IS UP IN CHAIR, ATTENDS ARE DRY. PATIENT REFUSES TO DRINK ANY MORE MAG CITRATE. PATIENT DENIES NEEDS AT THIS TIME.
--- NOTE | 2024-07-19 12:18 | NUR ---
HOURLY ROUNDING. PATIENT HAS BEEN HOYERED TO THE CHAIR. NO REQUEST FROM PATIENT AT THIS TIME. IS AT BED SIDE
--- NOTE | 2024-07-19 12:20 | NUR ---
PT UP TO CHAIR EATING LUNCH WITH HIS , STATES NO NEEDS AT THIS TIME, CALL LIGHT WITHIN REACH, FALL PRECAUTIONS IN PLACE.
--- NOTE | 2024-07-19 17:30 | NUR ---
PT CRYING IN BED, AT BEDSIDE ALSO CRYING, EXPLAINS IS D/T IN THE FAMILY TODAY. THERAPEUTIC CARE PROVIDED. THIS RN AND INDUSTRIAL YARD BRAKE COUPLER ASK IF PT WOULD LIKE TO WAIT TO DO SUPPOSITORY MEDICATION, PT STATES HE WOULD LIKE TO DO IT NOW. SUPPOSITORY ADMINISTERED PER ORDER, PT TOLERATES WELL. PT STATES HE FEELS THE NEED TO VOID. URINAL PROVIDED, PT UNABLE TO VOID AT THIS TIME. PT ASSISTED WITH SETTING UP DINNER TRAY, PT EATING INDEPENDENTLY W/O DIFFICULTY. PT REQUESTS ICE WATER, GIVEN. PT STATES NO FURTHER NEEDS AT THIS TIME, CALL LIGHT WITHIN REACH.
--- NOTE | 2024-07-19 18:45 | NUR ---
PAD IN ARTEM AREA REPLACED D/T PT VOIDING. PT STATES NO CURRENT NEEDS, CALL LIGHT WTIHIN REACH, FAMILY AT THE BEDSIDE.
--- NOTE | 2024-07-19 21:01 | NUR ---
Pt awake, alert and oriented, talkative. On room air, lungs clear dim at bases, itz cough, no CP. Irregular Rhythm. PEG tube patent, flushed as per orders. skin care done. ONE suture left. Abd large soft HEA, had a large sofrt liquid bm. skin care done, clean attends, was incontinent of urine too. Edema gross movement R arm aand Leg, heel protectors in place R laeg foot drop present. edema to LE and R hands. Turned and repositioned, took meds w/o problems one by one. sips of water, no chocking episodes present. Family in room
--- NOTE | 2024-07-19 23:15 | NUR ---
RESTING, EYES CLOSED, O2 2LNC INPLACE. NO S/SX DISTRESS. FAMILY IN ROOM
--- NOTE | 2024-07-20 01:13 | NUR ---
REESTING, EYES CLOSED, HAD TAKEN O2 OFF, NC REPOSITIONED. REPOSITIONED. R HAND ELEVATED IN PILLOWS, HEEL PROTECTOR R LEG
--- NOTE | 2024-07-20 03:30 | NUR ---
PT ON 2LNC, AWAKENS EASILY, WAS INCONTINENT OF BOWEL AND BLADDER, SKIN CARE. DONE, CLEAN ATTENDS, LOTION APPLIED TO REDDENED ARTEM AND SCROTUM AREA. TURNED AND REPOSITIONED IN BED R ARM ELEVATED WITH PILLOWS, R HEEL PROTECTORS IN PLACE. ALL CARES EXPLAINED, IN ROOM
[2024-07-20 05:24] VITALS: BP 112/73
[2024-07-20 05:25] VITALS: BP 112/73
[2024-07-20 05:25] LABS: BASOPHILS 0.7 % (0-2); EOSINOPHILS 6.1 % (0-6); HEMATOCRIT 36.5 % (35.0-50.0); HEMOGLOBIN 12.2 g/dL (12.0-18.0); LYMPHOCYTES 24.1 % (24-44); MCH 29.6 (27-36); MCHC 33.3 g/dl (30-36); MCV 88.8 fl (81-99); MONOCYTES 12.1 % (0-12); PLATELET COUNT 91 K/uL (140-440); RBC 4.11 M/ul (4.3-5.7); RDW 17.2 (10.5-15.0)
--- NOTE | 2024-07-20 05:26 | NUR ---
AWAKENS EASILY, GOES BACK TO SLEEP, O2 2LNC IN PLACE, O2 AT HS ONLY. COOP WITH VITALS AND ASSESSMENTS. R HAND ELEVATED WITH PILLOWS, REPOSITIONED, R LEG W HEEL PROTECTORS IN PLACE. CLEAN ATTENDS, IN ROOM.
[2024-07-20 05:40] LABS: ANION GAP 9.6 (7-21); BUN/CREATININE RATIO 7.81 (6.0-28.6); CALCIUM 9.5 mg/dL (8.5-10.1); CREATININE, SERUM 1.28 mg/dL (0.70-1.30); POTASSIUM 3.6 mmol/L (3.5-5.1)
--- NOTE | 2024-07-20 06:55 | NUR ---
Pt report received from DHRUV Ospina. Pt is resting supine in bed, eyes closed, O2 via NC on, breathing is regular, even, and non-labored. White board updated. Pt's , Angeline, resting in the chair in the room. Denies needs at this time.
[2024-07-20] MEDS ORDERED: POTASSIUM CHLORIDE 20 MEQ/15 ML CUP PO ONE (07:45)
--- NOTE | 2024-07-20 07:45 | NUR ---
HOURLY ROUNDING. PATIENT IS SLEEPING, IS AT BEDSIDE. NO REQUESTS. BOARD HAS BEEN UPDATED
--- NOTE | 2024-07-20 08:23 | NUR ---
IM LETTER SIGNED AND COPY GIVEN.
[2024-07-20] MEDS ORDERED: GABAPENTIN300 MG PO (08:57)
[2024-07-20] MEDS ORDERED: DULOXETINE HCL60 MG PO (08:57)
[2024-07-20] MEDS ORDERED: TRAZODONE HCL50 MG PO (08:58)
[2024-07-20] MEDS ORDERED: MELATONIN3 MG PO (08:59)
[2024-07-20 09:13] VITALS: BP 110/70
[2024-07-20] MEDS ORDERED: POTASSIUM CHLORIDE 10 MEQ TABCR PO ONE (09:15)
--- NOTE | 2024-07-20 09:32 | NUR ---
In report, DHRUV Ospina advised that the pt's PEG tube is secured by a single stitch. Noted this during my assessment. Dr. Dsouza on the floor for other patients and he was notified. He advised that as long as no one drastically pulls hard on it, it should stay. He advised that the pt should be educated that if the tube is dislodge, they need to insert another tube (e.g. a rousseau catheter) to keep the tunnel open as it will close off within 8 hours. Advised the pt and his of this information.
--- NOTE | 2024-07-20 09:52 | NUR ---
orders faxed to [facility]
[2024-07-20 10:07] VITALS: BP 110/70
--- NOTE | 2024-07-20 10:10 | NUR ---
[facility] CALLED NON EMERGENT TRANSPORT SET UP FOR 1030 BACK TO FACILITY. FACILITIY AWARE. NO FUTHER CM NEEDS AT THIS TIME.
--- NOTE | 2024-07-20 11:28 | NUR ---
PATIENT TRANSPORTED VIA EMS TO [facility] FOR FURTHER REHAB.
== END 2024-07-20 11:25 | DRG 177 ==
LOC: ED 15:22 → MS 18:52
PROVIDERS: Emergency Medicine; ADMIT Student in an Organized Health Care Education/Training Program; ATTEND Student in an Organized Health Care Education/Training Program
DX: J69.0 Pneumonitis due to inhalation of food and vomit (principal); J96.01 Acute respiratory failure with hypoxia; I67.850 Cerebral autosomal dominant 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; I82.411 Acute embolism and thrombosis of right femoral vein; I69.351 Hemiplegia and hemiparesis following cerebral infarction affecting right dominant side; I82.421 Acute embolism and thrombosis of right iliac vein; N17.9 Acute kidney failure, unspecified; J18.9 Pneumonia, unspecified organism; Z66 Do not resuscitate; I10 Essential (primary) hypertension; R13.10 Dysphagia, unspecified; N40.1 Benign prostatic hyperplasia with lower urinary tract symptoms; F41.0 Panic disorder [episodic paroxysmal anxiety]; R33.8 Other retention of urine; K74.60 Unspecified cirrhosis of liver; G47.33 Obstructive sleep apnea (adult) (pediatric); K21.9 Gastro-esophageal reflux disease without esophagitis; K58.1 Irritable bowel syndrome with constipation; K82.8 Other specified diseases of gallbladder; D69.6 Thrombocytopenia, unspecified; F32.9 Major depressive disorder, single episode, unspecified; G47.00 Insomnia, unspecified; Z88.5 Allergy status to narcotic agent; Z93.1 Gastrostomy status; I25.2 Old myocardial infarction; Z74.01 Bed confinement status; Z87.891 Personal history of nicotine dependence; Z79.01 Long term (current) use of anticoagulants
CPT/HCPCS: 36415; 36592; 51798; 71045; 74177; 74230; 76705; 80048; 80053; 81001; 83690; 83735; 83880; 84100; 84484; 85025; 85610; 85730; 86704; 86706; 86707; 86803; 87340; 87350; 87502; 92526; 92611; 93005; 93010; 94667; 94668; 94760; 94762; 97161; 97165; A6590; A9270; J0456; J0696; J0780; J1200; J1644; J2060; J2405; J2470; J3475; J3480; J3490; J7060; J7121; Q9967; U0002

== ENCOUNTER 2024-09-08 17:35 | Emergency (ER) | payer MEDICARE, OTHER ==
[~2024-09-08] VITALS: Ht 185.4 cm; Wt 119.0 kg
[~2024-09-08 17:35] MED LIST changes: +MELATONIN3 MG PO; +TRAZODONE HCL50 MG PO
--- OUTSIDE RECORDS SUMMARY | 2024-09-08 17:42 | XMS ---
PreManage Notification: MAGALYS HILLIARD Security Women Specialist Events No recent Security Events currently on file CRITERIA MET - 6 ED Visits in 6 Months CARE PROVIDERS -, [facility] Dentist: Business Analyst Consultant Current [place] PHONE: [phone] TOM PEREA Nurse Practitioner: Family Current PHONE: [phone] NURIS DURÁN Physician Seasoning Mixer Vidhya CASTAÑEDA PHONE: [phone] MIAN CAI Nurse Practitioner: Adult Health Vidhya [place] PHONE: [phone] ABDIEL WILL [facility] Current PHONE: Unknown Dina has no Care Guidelines for this patient. EJean VISIT COUNT (12 MO.) 8 [facility] TOTAL 8 NOTE: Visits indicate total known visits. ED/UCC VISIT TRACKING (12 MO.) 09/08/2024 17:36 [facility] [place] TYPE: Emergency COMPLAINT: - URINE PROBLEM 07/12/2024 15:[address] [facility] [place] TYPE: Emergency COMPLAINT: - ABDOMINAL PAIN 06/27/2024 16:24 [facility] [place] TYPE: Emergency COMPLAINT: - ALTERED MENTAL STATUS 06/23/2024 13:[address] [facility] [place] TYPE: Emergency COMPLAINT: - WEAKNESS DIAGNOSES: - Allergy status to narcotic agent - Cerebral autosomal dominant 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 - Cerebral infarction, unspecified - Essential (primary) hypertension - longterm (current) use of aspirin - Old myocardial infarction - Other intermodal dispatcher (current) drug therapy - Personal history of [...] narcotic agent - Essential (primary) hypertension - terminal superintendent (current) use of aspirin - Other intermodal dispatcher (current) drug therapy - Personal history of [...] cerebrovascular disease affecting right dominant side - terminal superintendent (current) use of aspirin - longterm (current) use of oral hypoglycemic drugs - Old myocardial infarction - Other detention (current) drug therapy - Partial intestinal obstruction, unspecified as to cause - Personal history of nicotine dependence - Vomiting, unspecified 05/15/2024 10:47 [facility] [place] TYPE: Emergency INPATIENT VISIT TRACKING (12 MO.) 07/12/2024 18:52 [facility] [place] TYPE: Medical Surgical COMPLAINT: - AHRF/PNA DIAGNOSES: - Acute embolism and thrombosis of right femoral vein - Acute embolism and thrombosis of right iliac vein - Acute kidney failure, unspecified - Acute respiratory failure with hypoxia - Allergy status to narcotic agent - Bed confinement status - Benign prostatic hyperplasia with lower urinary tract symptoms - Cerebral autosomal dominant 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 - Do not resuscitate - Dysphagia, unspecified - Essential (primary) hypertension - Gastro-esophageal reflux disease without esophagitis - Gastrostomy status - Hemiplegia and hemiparesis following cerebral infarction affecting right dominant side - Insomnia, unspecified - Irritable bowel syndrome with constipation - longterm (current) use of anticoagulants - Major depressive disorder, single episode, unspecified - Nausea with vomiting, unspecified - Obstructive sleep apnea (adult) (pediatric) - Old myocardial infarction - Other retention of urine - Other specified diseases of gallbladder - Panic disorder [episodic paroxysmal anxiety] - Personal history of nicotine dependence - Pneumonia, unspecified organism - Pneumonitis due to inhalation of food and vomit - Thrombocytopenia, unspecified - Unspecified cirrhosis of liver 06/27/2024 16:25 [facility] [place] TYPE: Observation COMPLAINT: - AMS DIAGNOSES: - Allergy status to narcotic agent - Allergy status to other drugs, medicaments and biological substances - Altered mental status, unspecified - Cerebral autosomal dominant 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 - Do not resuscitate - Essential (primary) hypertension - Hyperlipidemia, unspecified - terminal superintendent (current) use of aspirin - terminal superintendent (current) use of oral hypoglycemic drugs - Obstructive sleep apnea (adult) (pediatric) - Old myocardial infarction - Other detention (current) drug therapy 05/15/2024 16:01 [facility] [...] - Hypokalemia - Hypomagnesemia - Hypomagnesemia - terminal superintendent (current) use of aromatase inhibitors - terminal superintendent (current) use of aromatase inhibitors - longterm (current) use of aspirin - longterm (current) use of aspirin - longterm (current) use of oral hypoglycemic drugs - terminal superintendent (current) use of oral hypoglycemic drugs - terminal superintendent (current) use of systemic steroids - longterm (current) use of systemic steroids - Major depressive disorder, single episode, unspecified - Major depressive disorder, single episode, unspecified - Obesity, unspecified - Obesity, unspecified - Obstructive sleep apnea (adult) (pediatric) - Obstructive sleep apnea (adult) (pediatric) - Old myocardial infarction - Old myocardial infarction - Other cerebral infarction - Other cerebral infarction - Other intermodal dispatcher (current) drug therapy - Other intermodal dispatcher (current) drug therapy - Other specified bacterial [...] disturbance, mood disturbance, and anxiety - Weakness [email or web address]
[2024-09-08 18:18] LABS: BASOPHILS 0.5 % (0.2-1.2); EOSINOPHILS 4.5 % (0.8-7.0); HEMATOCRIT 40.4 % (40.1-51.0); LYMPHOCYTES 24.3 % (21.8-53.1); MCH 29.1 PG (25.7-32.2); MCHC 32.2 g/dL (32.3-36.5); MCV 90.4 fL (79.0-92.2); MONOCYTES 9.9 % (5.3-12.2); NEUTROPHILS 60.6 % (34.0-67.9); PLATELET COUNT 112 K/uL (163-337); RBC 4.47 M/uL (4.63-6.08)
[2024-09-08] MEDS ORDERED: ABILIFY15 MG PO (18:18)
[2024-09-08] MEDS ORDERED: CARVEDILOL25 MG PO (18:19)
[2024-09-08 18:20] LABS: INR 1.26 (0.80-1.30)
[2024-09-08] MEDS ORDERED: DULCOLAX10 MG PR (18:21)
[2024-09-08] MEDS ORDERED: FLEET ENEMA133 ML PR (18:23)
[2024-09-08 18:25] LABS: ALBUMIN 3.4 g/dL (3.4-5.0); ALBUMIN/GLOBULIN RATIO 0.77 (1.1-2.4); ANION GAP 10.3 (7-21); BILIRUBIN, TOTAL 1.1 mg/dL (0.2-1.0); BUN/CREATININE RATIO 16.1 (6.0-28.6); CALCIUM 9.8 mg/dL (8.5-10.1); CREATININE, SERUM 1.18 mg/dL (0.70-1.30); POTASSIUM 3.3 mmol/L (3.5-5.1); PROTEIN, TOTAL 7.8 g/dL (6.4-8.2)
[2024-09-08] MEDS ORDERED: HYDRALAZINE HCL25 MG PO (18:26)
[2024-09-08] MEDS ORDERED: MIRALAX119 GM PO (18:27)
[2024-09-08] MEDS ORDERED: SODIUM CHLORIDE 0.9% 1,000 ML IV ONE (20:15)
[2024-09-08] MEDS ORDERED: LIDOCAINE 2% VISCOUS 6 ML SYR MM ONE (22:15)
[2024-09-08 22:32] LABS: BILIRUBIN, URINE NEGATIVE (negative); BLOOD/HGB, URINE NEGATIVE (Negative); KETONE, URINE NEGATIVE (Negative); LEUK ESTERASE, URINE NEGATIVE (negative); NITRITE, URINE NEGATIVE (negative); PH, URINE 6.5 (5-7)
[2024-09-09 00:35] VITALS: BP 143/88
== END 2024-09-09 07:44 | disposition home or self-care (01) ==
LOC: ED 17:35
PROVIDERS: Emergency Medicine
DX: R41.82 Altered mental status, unspecified (principal); I67.850 Cerebral autosomal dominant 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; I25.2 Old myocardial infarction; Z79.899 Other long term (current) drug therapy; Z79.84 Long term (current) use of oral hypoglycemic drugs; Z88.5 Allergy status to narcotic agent; Z87.891 Personal history of nicotine dependence
CPT/HCPCS: 36415; 51702; 51798; 70450; 74176; 80053; 81003; 83690; 85025; 85610; 99285-25; A6590; J7030

== ENCOUNTER 2024-09-12 16:01 | Emergency (ER) | payer MEDICARE, OTHER ==
[~2024-09-12] VITALS: Ht 185.4 cm; Wt 122.0 kg
[~2024-09-12 16:01] MED LIST changes: +ABILIFY15 MG PO; +CARVEDILOL25 MG PO; +DULCOLAX10 MG PR; +HYDRALAZINE HCL25 MG PO; +MIRALAX119 GM PO
--- OUTSIDE RECORDS SUMMARY | 2024-09-12 16:08 | XMS ---
PreManage Notification: MAGALYS HILLIARD Security Military Pay Technician Events No recent Security Events currently on file CRITERIA MET - 6 ED Visits in 6 Months - [facility] - 2 Visits in 30 Days CARE PROVIDERS -, [facility]ist: Veterinary Medicine Scientist Vidhya [place] PHONE: [phone] TOM PEREA Nurse Practitioner: Family Vidhya PHONE: [phone] NURIS DURÁN Physician Poultry Feed Supervisor Vidhya CASTAÑEDA PHONE: [phone] MIAN CAI Nurse Practitioner: Adult Health Vidhya BAUTISTA PHONE: [phone] ABDIEL WILL Family [facility] Current PHONE: Unknown Dina has no Care Guidelines for this patient. Yohannes VISIT COUNT (12 MO.) [address] [facility] TOTAL 9 NOTE: Visits indicate total known visits. ED/UCC VISIT TRACKING (12 MO.) 09/12/2024 16:01 [facility] [place] TYPE: Emergency COMPLAINT: - SHORTNESS OF BREATH 09/08/2024 17:36 [facility] [place] TYPE: Emergency COMPLAINT: - URINE PROBLEM DIAGNOSES: - Allergy status to narcotic agent - Altered mental status, unspecified - Cerebral autosomal dominant 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 - assisted (current) use of oral hypoglycemic drugs - Old myocardial infarction - Other terminal make up operator (current) drug therapy - Personal history of nicotine dependence - Unspecified abdominal pain 07/12/2024 15:22 [facility] [place] TYPE: Emergency COMPLAINT: - ABDOMINAL PAIN 06/27/2024 16:24 [facility] [place] TYPE: Emergency COMPLAINT: - ALTERED MENTAL STATUS 06/23/2024 13:49 [facility] [place] TYPE: Emergency COMPLAINT: - WEAKNESS DIAGNOSES: - Allergy status to narcotic agent - Cerebral autosomal dominant 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 - Cerebral infarction, unspecified - Essential (primary) hypertension - assisted (current) use of aspirin - Old myocardial infarction - Other care home (current) drug therapy - Personal history [...] assisted (current) use of aspirin - Other care home (current) drug therapy - Personal history [...] cerebrovascular disease affecting right dominant side - rn long term care (current) use of aspirin - rn long term care (current) use of oral hypoglycemic drugs - Old myocardial infarction - Other terminal make up operator (current) drug therapy - Partial intestinal obstruction, [...] - Irritable bowel syndrome with constipation - assisted (current) use of anticoagulants - Major depressive [...] Essential (primary) hypertension - Hyperlipidemia, unspecified - assisted (current) use of aspirin - assisted (current) use of oral hypoglycemic drugs - Obstructive sleep apnea (adult) (pediatric) - Old myocardial infarction - Other terminal make up operator (current) drug therapy 05/15/2024 16:[address] [facility] [place] TYPE: Medical Surgical COMPLAINT: - ACUTE [...] - Hypokalemia - Hypomagnesemia - Hypomagnesemia - rn long term care (current) use of aromatase inhibitors - assisted (current) use of aromatase inhibitors - rn long term care (current) use of aspirin - assisted (current) use of aspirin - assisted (current) use of oral hypoglycemic drugs - assisted (current) use of oral hypoglycemic drugs - rn long term care (current) use of systemic steroids - rn long term care (current) use of systemic steroids - Major depressive disorder, single episode, unspecified - Major depressive disorder, single episode, unspecified - Obesity, unspecified - Obesity, unspecified - Obstructive sleep apnea (adult) (pediatric) - Obstructive sleep apnea (adult) (pediatric) - Old myocardial infarction - Old myocardial infarction - Other cerebral infarction - Other cerebral infarction - Other terminal make up operator (current) drug therapy - Other care home (current) drug therapy - Other specified bacterial [...] disturbance, mood disturbance, and anxiety - Weakness [email or web address]
[2024-09-12 16:25] LABS: BASOPHILS 0.6 % (0.2-1.2); EOSINOPHILS 4.2 % (0.8-7.0); HEMATOCRIT 37.8 % (40.1-51.0); LYMPHOCYTES 18.3 % (21.8-53.1); MCH 29.3 PG (25.7-32.2); MCHC 31.7 g/dL (32.3-36.5); MCV 92.2 fL (79.0-92.2); MONOCYTES 12.4 % (5.3-12.2); NEUTROPHILS 64.1 % (34.0-67.9); PLATELET COUNT 105 K/uL (163-337)
[2024-09-12 16:37] LABS: ALBUMIN 2.9 g/dL (3.4-5.0); ALBUMIN/GLOBULIN RATIO 0.73 (1.1-2.4); ANION GAP 10.7 (7-21); BILIRUBIN, TOTAL 0.6 mg/dL (0.2-1.0); BUN/CREATININE RATIO 17.68 (6.0-28.6); CALCIUM 8.8 mg/dL (8.5-10.1); CREATININE, SERUM 1.47 mg/dL (0.70-1.30); MAGNESIUM 1.9 mg/dL (1.8-2.4); POTASSIUM 3.7 mmol/L (3.5-5.1); PROTEIN, TOTAL 6.9 g/dL (6.4-8.2)
[2024-09-12 17:35] VITALS: BP 134/81
--- NOTE | 2024-09-13 12:15 | EKG ---
[facility] [address] [place] [address] Signed Normal sinus rhythm Normal ECG When compared with ECG of 16-JUL-2024 22:49, No significant change was found Confirmed by Hernandez Gambino DO ([id number]) on 09/13/2024 12:15:24 PM Electronically Signed By: HERNANDEZ GAMBINO DO 09/13/24 1215 PATIENT NAME: BABAKMAGALYS SAMUEL Electrocardiogram DATE OF : 59 PHYSICIAN: HERNANDEZ GAMBINO DO REPORT #: [id number] REPORT IS CONFIDENTIAL AND NOT TO BE RELEASED WITHOUT AUTHORIZATION
== END 2024-09-12 20:00 | disposition home or self-care (01) ==
LOC: ED 16:01
PROVIDERS: Emergency Medicine
DX: R05.9 Cough, unspecified (principal); I10 Essential (primary) hypertension; Z87.442 Personal history of urinary calculi; Z86.73 Personal history of transient ischemic attack (TIA), and cerebral infarction without residual deficits; Z87.891 Personal history of nicotine dependence; Z88.5 Allergy status to narcotic agent; Z79.899 Other long term (current) drug therapy
CPT/HCPCS: 36415; 71045; 80053; 83735; 84484; 85025; 93005; 93010; 99285-25

== ENCOUNTER 2024-09-24 17:10 | Emergency (ER) | payer MEDICARE, OTHER ==
[~2024-09-24] VITALS: Ht 185.4 cm; Wt 116.3 kg
--- OUTSIDE RECORDS SUMMARY | 2024-09-24 17:17 | XMS ---
PreManage Notification: MAGALYS HILLIARD Security Log Skidder Events No recent Security Events currently on file CRITERIA MET - 6 ED Visits in 6 Months - [facility] - 2 Visits in 30 Days CARE PROVIDERS TOM PEREA Nurse Practitioner: Family Current PHONE: [phone] NURIS DURÁN Physician Grain Cleaner Vidhya MADDY PHONE: [phone] MIAN CAI Nurse Practitioner: Adult Health Vidhya CASCADE PHONE: [phone] ABDIEL WILL Medicine Current PHONE: Unknown Dina has no Care Guidelines for this patient. Yohannes VISIT COUNT (12 MO.) 10 KONG [facility] TOTAL 10 NOTE: Visits indicate total known visits. ED/UCC VISIT TRACKING (12 MO.) 09/24/2024 17:11 [facility] [place] TYPE: Emergency COMPLAINT: - SHORTNESS OF BREATH 09/12/2024 16:01 [facility] [place] TYPE: Emergency COMPLAINT: - SHORTNESS OF BREATH DIAGNOSES: - Allergy status to narcotic agent - Cough, unspecified - Essential (primary) hypertension - Other supervisor intermediates (current) drug therapy - Personal history of nicotine dependence - Personal history of transient ischemic attack (TIA), and cerebral infarction without residual deficits - Personal history of urinary calculi - Weakness 09/08/2024 17:36 [facility] [place] TYPE: Emergency COMPLAINT: - URINE PROBLEM DIAGNOSES: - Allergy status to narcotic agent - Altered mental status, unspecified - Cerebral autosomal dominant 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 - group home (current) use of oral hypoglycemic drugs - Old myocardial infarction - Other supervisor intermediates (current) drug therapy - Personal history of [...] infarction, unspecified - Essential (primary) hypertension - group home (current) use of aspirin - Old myocardial infarction - Other penitentiary (current) drug therapy - Personal history of [...] narcotic agent - Essential (primary) hypertension - buttermaker (current) use of aspirin - Other supervisor intermediates (current) drug therapy - Personal history of [...] cerebrovascular disease affecting right dominant side - group home (current) use of aspirin - buttermaker (current) use of oral hypoglycemic drugs - Old myocardial infarction - Other penitentiary (current) drug therapy - Partial intestinal obstruction, [...] - Irritable bowel syndrome with constipation - group home (current) use of anticoagulants - Major depressive [...] Essential (primary) hypertension - Hyperlipidemia, unspecified - buttermaker (current) use of aspirin - group home (current) use of oral hypoglycemic drugs - Obstructive sleep apnea (adult) (pediatric) - Old myocardial infarction - Other penitentiary (current) drug therapy 05/15/2024 16:[address] [facility] [place] TYPE: Medical Surgical [...] - Hypokalemia - Hypomagnesemia - Hypomagnesemia - buttermaker (current) use of aromatase inhibitors - group home (current) use of aromatase inhibitors - group home (current) use of aspirin - group home (current) use of aspirin - buttermaker (current) use of oral hypoglycemic drugs - group home (current) use of oral hypoglycemic drugs - group home (current) use of systemic steroids - group home (current) use of systemic steroids - Major depressive disorder, single episode, unspecified - Major depressive disorder, single episode, unspecified - Obesity, unspecified - Obesity, unspecified - Obstructive sleep apnea (adult) (pediatric) - Obstructive sleep apnea (adult) (pediatric) - Old myocardial infarction - Old myocardial infarction - Other cerebral infarction - Other cerebral infarction - Other penitentiary (current) drug therapy - Other supervisor intermediates (current) drug therapy - Other specified bacterial [...] disturbance, mood disturbance, and anxiety - Weakness [email or web address]
[2024-09-24 17:47] LABS: BASOPHILS 0.5 % (0.2-1.2); EOSINOPHILS 6.9 % (0.8-7.0); LYMPHOCYTES 25.5 % (21.8-53.1); MCH 28.6 PG (25.7-32.2); MCHC 30.9 g/dL (32.3-36.5); MCV 92.5 fL (79.0-92.2); MONOCYTES 22.9 % (5.3-12.2); NEUTROPHILS 43.7 % (34.0-67.9); RBC 4.27 M/uL (4.63-6.08)
[2024-09-24 18:02] LABS: ALT (SGPT) 22.0 U/L (14-59); AST (SGOT) 24.0 U/L (15-37); GLOMERULAR FILTRATION RATE,EST 64.0 mL/min (>60); PROTEIN, TOTAL 7.0 g/dL (6.4-8.2); UREA NITROGEN 19.0 mg/dL (7-18)
[2024-09-24 18:50] LABS: LACTIC ACID, BLOOD 1.2 mmol/L (0.4-2.0)
[2024-09-24] MEDS ORDERED: LEVOFLOXACIN500 MG PO (20:18)
[2024-09-24] MEDS ORDERED: LEVOFLOXACIN500 MG PT ×2 (20:23)
[2024-09-24] MEDS ORDERED: levoFLOXacin 500 MG TAB PT ONE (20:30)
[2024-09-24 21:09] VITALS: BP 148/89
--- NOTE | 2024-09-24 22:01 | EKG ---
[facility] [address] [place] [address] Signed Sinus rhythm with 1st degree AV block Left axis deviation Inferior infarct , age undetermined Abnormal ECG When compared with ECG of 12-SEP-2024 16:20, Inferior infarct is now present Confirmed by Amy Pierre MD () on 09/24/2024 10:01:28 PM Electronically Signed By: AMY PIERRE MD 09/24/242200 PATIENT NAME: BABAKMAGALYS SAMUEL Electrocardiogram DATE OF : 59 PHYSICIAN: AMY PIERRE MD REPORT #: [id number] REPORT IS CONFIDENTIAL AND NOT TO BE RELEASED WITHOUT AUTHORIZATION
== END 2024-09-24 21:11 | disposition home or self-care (01) ==
LOC: ED 17:10
PROVIDERS: Emergency Medicine
DX: J18.9 Pneumonia, unspecified organism (principal); I10 Essential (primary) hypertension; Z87.442 Personal history of urinary calculi; Z87.891 Personal history of nicotine dependence; Z88.5 Allergy status to narcotic agent; Z79.899 Other long term (current) drug therapy
CPT/HCPCS: 36415; 71045; 80053; 83605; 85025; 85060; 93005; 93010; 99285-25

== ENCOUNTER 2024-12-01 14:06 | Emergency (ER) | payer MEDICARE, OTHER ==
[~2024-12-01] VITALS: Ht 185.4 cm; Wt 110.0 kg
--- NOTE | ~2024-12-01 | EKG ---
[facility] [address] [place], [place] [address] Draft EK completed, results pending confirmation PATIENT NAME: BABAKMAGALYS Electrocardiogram DATE OF : 59 PHYSICIAN: PRELIMINARY REPORT #: [id number] REPORT IS CONFIDENTIAL AND NOT TO BE RELEASED WITHOUT AUTHORIZATION
[~2024-12-01 14:06] MED LIST changes: +LEVOFLOXACIN500 MG PO; +LEVOFLOXACIN500 MG PT
--- OUTSIDE RECORDS SUMMARY | 2024-12-01 14:08 | XMS ---
PreManage Notification: MAGALYS HILLIARD Security Claims Assistant Events No recent Security Events currently on file CRITERIA MET - 6 ED Visits in 6 Months CARE PROVIDERS -, [facility] Dentist: Outside Machinist Vidhya Tai PHONE: [phone] TOM PEREA Nurse Practitioner: Family Current PHONE: [phone] DR. JORGE [facility] Clinic/Center: Primary Care MD PAULA Young \F\ <UNAVAIL> PHONE: [phone] NURIS DURÁN Physician Supervisor Pressing Department Vidhya CASTAÑEDA PHONE: [phone] MIAN CAI Nurse Practitioner: Adult Health Vidhya LILY PHONE: [phone] [place] Teaching Young/Keno Dealer Current PHONE: [phone] ABDIEL WILL Family Medicine Current PHONE: Unknown Dina has no Care Guidelines for this patient. Yohannes VISIT COUNT (12 MO.) Macarena Streeter TOTAL 11 NOTE: Visits indicate total known visits. ED/UCC VISIT TRACKING (12 MO.) 12/01/2024 14:06 [facility] [place] TYPE: Emergency COMPLAINT: - ABDOMINAL PAIN 09/24/2024 17:11 [facility] [place] TYPE: Emergency COMPLAINT: - SHORTNESS OF BREATH DIAGNOSES: - Allergy status to narcotic agent - Essential (primary) hypertension - Other care home (current) drug therapy - Personal history of nicotine dependence - Personal history of urinary calculi - Pneumonia, unspecified organism - Shortness of breath 09/12/2024 16:01 [facility] [place] TYPE: Emergency COMPLAINT: - SHORTNESS OF BREATH DIAGNOSES: - Allergy status to narcotic agent - Cough, unspecified - Essential (primary) hypertension - Other care home (current) drug therapy [...] 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 - [facility] (current) use of oral hypoglycemic drugs - Old myocardial infarction - Other exterminator termite (current) drug therapy - Personal history of nicotine dependence - Unspecified abdominal pain 07/12/2024 15:22 [facility] [place] TYPE: Emergency COMPLAINT: - ABDOMINAL PAIN 06/27/2024 16:24 [facility] [place] TYPE: Emergency COMPLAINT: - ALTERED MENTAL STATUS 06/23/2024 13:49 [facility] [place] [facility] [place] TYPE: Emergency COMPLAINT: - WEAKNESS DIAGNOSES: - Allergy status to narcotic agent - Cerebral autosomal dominant 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 - Cerebral infarction, unspecified - Essential (primary) hypertension - intermediate school teacher (current) use of aspirin - Old myocardial infarction - Other exterminator termite (current) drug therapy - Personal history of nicotine dependence - Weakness 06/14/2024 07:54 [facility] [place] TYPE: Emergency COMPLAINT: - ABDOMINAL PAIN DIAGNOSES: - Allergy status to narcotic agent - Essential (primary) hypertension - Generalized abdominal pain - Other problems related to housing and economic circumstances - Personal history of nicotine dependence - Personal history of urinary calculi 06/05/2024 21:15 [facility] [place] [facility] [place] TYPE: Emergency COMPLAINT: - VOMITING DIAGNOSES: - Allergy status to narcotic agent - Essential (primary) hypertension - [facility] (current) use of aspirin - Other exterminator termite (current) drug therapy - Personal history of [...] cerebrovascular disease affecting right dominant side - intermediate school teacher (current) use of aspirin - [facility] (current) use of oral hypoglycemic drugs - Old myocardial infarction - Other exterminator termite (current) drug therapy - Partial intestinal obstruction, [...] - Irritable bowel syndrome with constipation - intermediate school teacher (current) use of anticoagulants - Major depressive [...] Essential (primary) hypertension - Hyperlipidemia, unspecified - intermediate school teacher (current) use of aspirin - [facility] (current) use of oral hypoglycemic drugs - Obstructive sleep apnea (adult) (pediatric) - Old myocardial infarction - Other exterminator termite (current) drug therapy 05/15/2024 16:01 [facility] [...] - Hypokalemia - Hypomagnesemia - Hypomagnesemia - [facility] (current) use of aromatase inhibitors - intermediate school teacher (current) use of aromatase inhibitors - [facility] (current) use of aspirin - [facility] (current) use of aspirin - intermediate school teacher (current) use of oral hypoglycemic drugs - [facility] (current) use of oral hypoglycemic drugs - [facility] (current) use of systemic steroids - intermediate school teacher (current) use of systemic steroids - Major depressive disorder, single episode, unspecified - Major depressive disorder, single episode, unspecified - Obesity, unspecified - Obesity, unspecified - Obstructive sleep apnea (adult) (pediatric) - Obstructive sleep apnea (adult) (pediatric) - Old myocardial infarction - Old myocardial infarction - Other cerebral infarction - Other cerebral infarction - Other exterminator termite (current) drug therapy - Other care home [...] disturbance, mood disturbance, and anxiety - Weakness [email or web address]
[2024-12-01 14:31] LABS: BASOPHILS 0.5 % (0.2-1.2); EOSINOPHILS 4.7 % (0.8-7.0); LYMPHOCYTES 16.9 % (21.8-53.1); MCH 29.9 PG (25.7-32.2); MCHC 32.9 g/dL (32.3-36.5); MCV 90.7 fL (79.0-92.2); MONOCYTES 10.0 % (5.3-12.2); NEUTROPHILS 67.7 % (34.0-67.9); RBC 4.62 M/uL (4.63-6.08)
[2024-12-01 14:50] LABS: ALCOHOL, MEDICAL <3 ng/dL (<3); ALT (SGPT) 14 U/L (14-59); AST (SGOT) 19 U/L (15-37); GLOMERULAR FILTRATION RATE,EST 73 mL/min (>60); PROTEIN, TOTAL 7.9 g/dL (6.4-8.2); UREA NITROGEN 9 mg/dL (7-18)
[2024-12-01 14:58] LABS: BLOOD/HGB, URINE NEGATIVE (Negative); KETONE, URINE NEGATIVE (Negative); LEUK ESTERASE, URINE NEGATIVE (negative); NITRITE, URINE NEGATIVE (negative)
[2024-12-01 15:18] LABS: AMPHETAMINES, URINE NEGATIVE (NEGATIVE); BARBITURATES, URINE NEGATIVE (NEGATIVE); BENZODIAZEPINE, URINE NEGATIVE (NEGATIVE); CANNABINOID, URINE NEGATIVE (NEGATIVE); COCAINE, URINE NEGATIVE (NEGATIVE); ECSTASY, URINE NEGATIVE (NEGATIVE); FENTANYL, URINE NEGATIVE (NEGATIVE); METHADONE, URINE NEGATIVE (NEGATIVE); OPIATES, URINE NEGATIVE (NEGATIVE); OXYCODONE, URINE NEGATIVE (NEGATIVE); PHENCYCLIDINE, URINE NEGATIVE (NEGATIVE)
[2024-12-01 16:39] LABS: CORONAVIRUS COVID-19 AG NEGATIVE (NEGATIVE)
[2024-12-01] MEDS ORDERED: ABILIFY10 MG PO (16:56)
[2024-12-01] MEDS ORDERED: TYLENOL325 MG PO (16:56)
[2024-12-01] MEDS ORDERED: ASPIRIN81 MG PO (16:57)
[2024-12-01] MEDS ORDERED: ACIDOPHILUS1 EACH PO (16:58)
[2024-12-01] MEDS ORDERED: HYDROXYZINE HCL25 MG PO (17:03)
[2024-12-01] MEDS ORDERED: BRILINTA60 MG PO (17:11)
[2024-12-01] MEDS ORDERED: TRANSDERM-SCOP1 EACH TD (17:11)
[2024-12-01] MEDS ORDERED: SODIUM CHLORIDE 0.9% 1,000 ML IV PRN (18:00)
[2024-12-01] MEDS ORDERED: REGLAN10 MG PO (18:26)
[2024-12-01] MEDS ORDERED: PROCHLORPERAZINE EDISYLATE 10 MG/2 ML VIAL IV ONE (18:30)
[2024-12-01 19:31] VITALS: BP 129/104
--- NOTE | 2024-12-02 18:07 | EKG ---
[facility] [address] [place] [address] Signed Normal sinus rhythm Left axis deviation Inferior infarct (cited on or before 24-SEP-2024) Abnormal ECG When compared with ECG of 01-DEC-2024 15:48, (Unconfirmed) No significant change was found Confirmed by JAYLEN TORRES MD ([id number]) on 12/02/2024 6:07:07 PM Electronically Signed By: JAYLEN TORRES 12/02/24 1807 PATIENT NAME: MAGALYS HILLIARD SAMUEL Electrocardiogram DATE OF : 59 PHYSICIAN: JAYLEN TORRES REPORT #: [id number] REPORT IS CONFIDENTIAL AND NOT TO BE RELEASED WITHOUT AUTHORIZATION
== END 2024-12-01 20:15 | disposition home or self-care (01) ==
LOC: ED 14:06
PROVIDERS: Emergency Medicine
DX: R11.0 Nausea (principal); I10 Essential (primary) hypertension; Z79.82 Long term (current) use of aspirin; Z79.899 Other long term (current) drug therapy; Z79.84 Long term (current) use of oral hypoglycemic drugs; Z88.5 Allergy status to narcotic agent; Z87.891 Personal history of nicotine dependence
CPT/HCPCS: 36415; 51701; 71045; 76705; 80053; 80307; 81003; 84484; 85025; 93005; 93010; 96374; 99285-25; G0480; J2405; J7030

== ENCOUNTER 2024-12-05 17:12 | Emergency (ER) | payer MEDICARE, OTHER ==
[~2024-12-05] VITALS: Ht 185.4 cm; Wt 109.4 kg
[~2024-12-05 17:12] MED LIST changes: +ABILIFY10 MG PO; +ACIDOPHILUS1 EACH PO; +ASPIRIN81 MG PO; +HYDROXYZINE HCL25 MG PO; +REGLAN10 MG PO; +TRANSDERM-SCOP1 EACH TD; +TYLENOL325 MG PO
--- OUTSIDE RECORDS SUMMARY | 2024-12-05 17:18 | XMS ---
PreManage Notification: MAGALYS HILLIARD Security Dessert Cup Machine Feeder Events No recent Security Events currently on file CRITERIA MET - 6 ED Visits in 6 Months - [facility] - 2 Visits in 30 Days CARE PROVIDERS -, [facility]ist: Interactive Media Director Vidhya Tai PHONE: [phone] TOM PEREA Nurse Practitioner: Family Vidhya PHONE: [phone] DR[facility] JORGE [facility] Clinic[facility]Center: Primary Care MD PAULA Young \F\ <UNAVAIL> PHONE: [phone] NURIS DURÁN Physician Club Lounge Attendant Vidhya CASTAÑEDA PHONE: [phone] MIAN CAI Nurse Practitioner: Adult Health [facility] PHONE: [phone] [place] Java Web Developer/Manager Lvn Current PHONE: [phone] ABDIEL WILL Family Medicine Current PHONE: Unknown Dina has no Care Guidelines for this patient. Yohannes VISIT COUNT (12 MO.) 12 KONG Streeter TOTAL 12 NOTE: Visits indicate total known visits. ED/UCC VISIT TRACKING (12 MO.) 12/05/2024 17:[address] [facility] [address] [facility] [place] TYPE: Emergency COMPLAINT: - FALL 12/01/2024 14:[address] [facility] [address] [facility] [place] TYPE: Emergency COMPLAINT: - ALTERED LOC DIAGNOSES: - Allergy status to narcotic agent - Essential (primary) hypertension - [facility] (current) use of aspirin - superintendent container terminal (current) use of oral hypoglycemic drugs - Nausea - Other [facility] (current) drug therapy - Personal history of nicotine dependence - Unspecified abdominal pain 09/24/2024 17:11 [facility] [place] TYPE: Emergency COMPLAINT: - SHORTNESS OF BREATH DIAGNOSES: - Allergy status to narcotic agent - Essential (primary) hypertension - Other regional intermodal truck driver (current) drug therapy - Personal history of nicotine dependence - Personal history of urinary calculi - Pneumonia, unspecified organism - Shortness of breath 09/12/2024 16:01 [facility] [place] TYPE: Emergency COMPLAINT: - SHORTNESS OF BREATH DIAGNOSES: - Allergy status to narcotic agent - Cough, unspecified - Essential (primary) hypertension - Other [facility] (current) drug therapy - Personal history of [...] 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 - superintendent container terminal (current) use of oral hypoglycemic drugs - Old myocardial infarction - Other regional intermodal truck driver (current) drug therapy - Personal history of nicotine dependence - Unspecified abdominal pain 07/12/2024 15:[address] [facility] [facility] [place] TYPE: Emergency COMPLAINT: - ABDOMINAL PAIN 06/27/2024 16:[address] [facility] [place] TYPE: Emergency COMPLAINT: - ALTERED MENTAL STATUS 06/23/2024 13:[address] [facility] [address] [facility] [place] TYPE: Emergency COMPLAINT: - WEAKNESS DIAGNOSES: - Allergy status to narcotic agent - Cerebral autosomal dominant 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 - Cerebral infarction, unspecified - Essential (primary) hypertension - superintendent container terminal (current) use of aspirin - Old myocardial infarction - Other [facility] (current[facility] drug therapy - Personal history of nicotine dependence - Weakness 06/14/2024 07:54 [facility] [place] [facility] [place] TYPE: Emergency COMPLAINT: - [...] Facility (current) use of aspirin - [facility] drug therapy - Personal history of [...] cerebrovascular disease affecting right dominant side - superintendent container terminal (current) use of aspirin - superintendent container terminal (current) use of oral hypoglycemic drugs - Old myocardial infarction - Other regional intermodal truck driver (current) drug therapy - Partial intestinal obstruction, [...] - Irritable bowel syndrome with constipation - [facility] (current) use of anticoagulants - Major depressive [...] Essential (primary) hypertension - Hyperlipidemia, unspecified - superintendent container terminal (current) use of aspirin - [facility] (current) use of oral hypoglycemic drugs - Obstructive sleep apnea (adult) (pediatric) - Old myocardial infarction - [facility] (current) drug therapy 05/15/2024 16:01 [facility] [...] - Hypokalemia - Hypomagnesemia - Hypomagnesemia - superintendent container terminal (current) use of aromatase inhibitors - [facility] (current) use of aromatase inhibitors - superintendent container terminal (current) use of aspirin - [facility] (current) use of aspirin - [facility] (current) use of oral hypoglycemic drugs - superintendent container terminal (current) use of oral hypoglycemic drugs - [facility] (current) use of systemic steroids - superintendent container terminal (current) use of systemic steroids - Major depressive disorder, single episode, unspecified - Major depressive disorder, single episode, unspecified - Obesity, unspecified - Obesity, unspecified - Obstructive sleep apnea (adult) (pediatric) - Obstructive sleep apnea (adult) (pediatric) - Old myocardial infarction - Old myocardial infarction - Other cerebral infarction - Other cerebral infarction - Other [facility] (current) drug therapy - Other regional intermodal truck driver (current) drug therapy - Other specified bacterial [...] disturbance, mood disturbance, and anxiety - Weakness [email or web address]
[2024-12-05 19:29] LABS: ALT (SGPT) 19.0 U/L (14-59); AST (SGOT) 16.0 U/L (15-37); GLOMERULAR FILTRATION RATE,EST 67.0 mL/min (>60); PROTEIN, TOTAL 7.1 g/dL (6.4-8.2); UREA NITROGEN 10.0 mg/dL (7-18)
[2024-12-05 19:37] LABS: BLOOD/HGB, URINE NEGATIVE (Negative); KETONE, URINE NEGATIVE (Negative); LEUK ESTERASE, URINE NEGATIVE (negative); NITRITE, URINE NEGATIVE (negative)
[2024-12-05 19:42] LABS: BASOPHILS 0.2 % (0.2-1.2); EOSINOPHILS 4.3 % (0.8-7.0); LYMPHOCYTES 18.8 % (21.8-53.1); MCH 29.5 PG (25.7-32.2); MCHC 32.6 g/dL (32.3-36.5); MCV 90.4 fL (79.0-92.2); MONOCYTES 9.4 % (5.3-12.2); NEUTROPHILS 66.9 % (34.0-67.9); RBC 4.27 M/uL (4.63-6.08)
[2024-12-05 20:29] VITALS: BP 161/92
== END 2024-12-05 20:30 ==
LOC: ED 17:12
PROVIDERS: Emergency Medicine
DX: S09.90XA Unspecified injury of head, initial encounter (principal); I10 Essential (primary) hypertension; I25.2 Old myocardial infarction; W05.0XXA Fall from non-moving wheelchair, initial encounter; Z86.73 Personal history of transient ischemic attack (TIA), and cerebral infarction without residual deficits; Z87.891 Personal history of nicotine dependence; Z88.5 Allergy status to narcotic agent; Z79.899 Other long term (current) drug therapy; Z79.82 Long term (current) use of aspirin
CPT/HCPCS: 36415; 51701; 70450; 80053; 81003; 85025; 99283-25

== ENCOUNTER 2025-01-06 17:01 | Emergency (ER) | payer MEDICARE, OTHER ==
[~2025-01-06] VITALS: Ht 185.4 cm; Wt 105.2 kg
--- OUTSIDE RECORDS SUMMARY | 2025-01-06 17:07 | XMS ---
PreManage Notification: MAGALYS HILLIARD Security Post Anesthesia Care Unit Nurse Events No recent Security Events currently on file CRITERIA MET - 6 ED Visits in 6 Months CARE PROVIDERS -, [facility] Dentist: High School Mathematics Teacher Vidhya Tai PHONE: [phone] TOM PEREA Nurse Practitioner: Family Current PHONE: [phone] DR[facility] JORGE [facility] Clinic/Center: Primary Care MD PAULA Young \F\ <UNAVAIL> PHONE: [phone] NURIS DURÁN Physician Clinical Office Technician Vidhya CASTAÑEDA PHONE: [phone] MIAN CAI Nurse Practitioner: Adult Health Vidhya LILY PHONE: [phone] [place] Manager Of Purchasing/Flatwork Finisher Current PHONE: [phone] ABDIEL WILL Family Medicine Current PHONE: Unknown Dina has no Care Guidelines for this patient. Yohannes VISIT COUNT (12 MO.) [facility] TOTAL 13 NOTE: Visits indicate total known visits. ED/UCC VISIT TRACKING (12 MO.) 01/06/2025 17:01 [facility] [place] TYPE: Emergency COMPLAINT: - VOMITING 12/05/2024 17:12 [facility] [place] TYPE: Emergency COMPLAINT: - FALL DIAGNOSES: - Allergy status to narcotic agent - Essential (primary) hypertension - Fall from non-moving wheelchair, initial encounter - intermediate designer (current) use of aspirin - Old myocardial infarction - Other moth exterminator (current) drug therapy - Personal history of nicotine dependence - Personal history of transient ischemic attack (TIA), and cerebral infarction without residual deficits - Unspecified injury of head, initial encounter 12/01/2024 14:06 [facility] [facility] [place] TYPE: Emergency COMPLAINT: - ALTERED LOC DIAGNOSES: - Allergy status to narcotic agent - Essential (primary) hypertension - [facility] (current) use of aspirin - [facility] (current) use of oral hypoglycemic drugs - Nausea - Other penitentiary (current) drug therapy - Personal history of nicotine dependence - Unspecified abdominal pain 09/24/2024 17:11 [facility] [place] TYPE: Emergency COMPLAINT: - SHORTNESS OF BREATH DIAGNOSES: - Allergy status to narcotic agent - Essential (primary) hypertension - Other penitentiary (current) drug therapy - Personal history of nicotine dependence - Personal history of urinary calculi - Pneumonia, unspecified organism - Shortness of breath 09/12/2024 16:01 [facility] [place] TYPE: Emergency COMPLAINT: - SHORTNESS OF BREATH DIAGNOSES: - Allergy status to narcotic agent - Cough, unspecified - Essential (primary) hypertension - Other moth exterminator (current) drug therapy - Personal history of [...] dependence - Unspecified abdominal pain 07/12/2024 15:[address] [facility] [facility] [place] TYPE: Emergency COMPLAINT: - ABDOMINAL PAIN 06/27/2024 16:24 [facility] [place] TYPE: Emergency COMPLAINT: - ALTERED MENTAL STATUS 06/23/2024 13:49 [facility] [place] TYPE: Emergency COMPLAINT: - WEAKNESS DIAGNOSES: - Allergy status to narcotic agent - Cerebral autosomal dominant 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 - Cerebral infarction, unspecified - Essential (primary) hypertension - intermediate designer (current) use of aspirin - Old myocardial infarction - Other moth exterminator (current) drug therapy - Personal history of [...] Facility (current) use of aspirin - Other penitentiary (current) drug therapy - [...] cerebrovascular disease affecting right dominant side - [facility] (current) use of aspirin - intermediate designer (current) use of oral hypoglycemic drugs - Old myocardial infarction - Other moth exterminator (current) drug therapy - Partial intestinal obstruction, [...] (primary) hypertension - Hyperlipidemia, unspecified - intermediate designer (current) use of aspirin - [facility] (current) use of oral hypoglycemic drugs - Obstructive sleep apnea (adult) (pediatric) - Old myocardial infarction - Other moth exterminator (current) drug therapy 05/15/2024 16:01 [facility] [...] - Hypokalemia - Hypomagnesemia - Hypomagnesemia - intermediate designer (current) use of aromatase inhibitors - [facility] (current) use of aromatase inhibitors - [facility] (current) use of aspirin - [facility] (current) use of aspirin - intermediate designer (current) use of oral hypoglycemic drugs - intermediate designer (current) use of oral hypoglycemic drugs - intermediate designer (current) use of systemic steroids - [facility] (current) use of systemic steroids - Major depressive disorder, single episode, unspecified - Major depressive disorder, single episode, unspecified - Obesity, unspecified - Obesity, unspecified - Obstructive sleep apnea (adult) (pediatric) - Obstructive sleep apnea (adult) (pediatric) - Old myocardial infarction - Old myocardial infarction - Other cerebral infarction - Other cerebral infarction - Other moth exterminator (current) drug therapy - Other moth exterminator (current) drug therapy - Other specified bacterial [...] disturbance, mood disturbance, and anxiety - Weakness [email or web address]
[2025-01-06] MEDS ORDERED: DEPAKOTE125 MG PO (17:17)
[2025-01-06] MEDS ORDERED: SODIUM CHLORIDE 0.9% 500 ML IV ONE (17:30)
[2025-01-06 17:35] LABS: BASOPHILS 0.5 % (0.2-1.2); EOSINOPHILS 1.2 % (0.8-7.0); LYMPHOCYTES 20.9 % (21.8-53.1); MCH 29.4 PG (25.7-32.2); MCHC 32.1 g/dL (32.3-36.5); MCV 91.5 fL (79.0-92.2); MONOCYTES 10.0 % (5.3-12.2); NEUTROPHILS 66.9 % (34.0-67.9); RBC 4.83 M/uL (4.63-6.08)
[2025-01-06 17:45] LABS: ALT (SGPT) 32.0 U/L (14-59); AST (SGOT) 32.0 U/L (15-37); GLOMERULAR FILTRATION RATE,EST 66.0 mL/min (>60); PROTEIN, TOTAL 7.8 g/dL (6.4-8.2); UREA NITROGEN 14.0 mg/dL (7-18)
[2025-01-06 19:54] LABS: BLOOD/HGB, URINE NEGATIVE (Negative); KETONE, URINE SMALL (Negative); LEUK ESTERASE, URINE NEGATIVE (negative); NITRITE, URINE NEGATIVE (negative)
[2025-01-06] MEDS ORDERED: SODIUM CHLORIDE 0.9% 1,000 ML IV PRN (20:45)
[2025-01-06 21:11] VITALS: BP 158/87
== END 2025-01-06 21:08 ==
LOC: ED 17:01
PROVIDERS: Emergency Medicine
DX: R10.9 Unspecified abdominal pain (principal); R11.2 Nausea with vomiting, unspecified; I10 Essential (primary) hypertension; Z87.891 Personal history of nicotine dependence; Z88.5 Allergy status to narcotic agent; Z88.8 Allergy status to other drugs, medicaments and biological substances
CPT/HCPCS: 36415; 51701; 71045; 76705; 76770; 76775; 80053; 81003; 83735; 85025; 96361; 96374; 99285-25; J2405; J7030; J7040

== ENCOUNTER 2025-01-20 13:45 | Emergency (ER) | payer MEDICARE, OTHER ==
[~2025-01-20] VITALS: Ht 185.4 cm; Wt 105.2 kg
[~2025-01-20 13:45] MED LIST changes: +DEPAKOTE125 MG PO
--- OUTSIDE RECORDS SUMMARY | 2025-01-20 13:52 | XMS ---
PreManage Notification: MAGALYS HILLIARD Security Mechanical Engineering Director Events No recent Security Events currently on file CRITERIA MET - 6 ED Visits in 6 Months - [facility] - 2 Visits in 30 Days CARE PROVIDERS -, [facility]ist: Library Cataloging Technician Vidhya Tai PHONE: [phone] TOM PEREA Nurse Practitioner: Family Vidhya PHONE: [phone] DR. J[facility]: Primary Care MD PAULA Young \F\ <UNAVAIL> PHONE: [phone] NURIS DURÁN Physician Testing Shaking Shipping Vidhya CASTAÑEDA PHONE: [phone] MIAN CAI Nurse Practitioner: Adult Health Vidhya TIPTON PHONE: [phone] Zaire BARKSDALE Looseleaf Binder Coverer/Visitor Information Assistant Current PHONE: [phone] ABDIEL WILL Family Medicine Current PHONE: Unknown Dina has no Care Guidelines for this patient. Yohannes VISIT COUNT (12 MO.) 14 KONG Streeter TOTAL 14 NOTE: Visits indicate total known visits. ED/UCC VISIT TRACKING (12 MO.) 01/20/2025 13:[address] [facility] [place] TYPE: Emergency COMPLAINT: - ABDOMINAL PAIN 01/06/2025 17:[address] [facility] TYPE: Emergency COMPLAINT: - VOMITING DIAGNOSES: - Allergy status to narcotic agent - Allergy status to other drugs, medicaments and biological substances - Essential (primary) hypertension - Nausea with vomiting, unspecified - Personal history of nicotine dependence - Unspecified abdominal pain 12/05/2024 17:12 [facility] [place] [place] TYPE: Emergency COMPLAINT: - FALL DIAGNOSES: - Allergy status to narcotic agent - Essential (primary) hypertension - Fall from non-moving wheelchair, initial encounter - correction (current) use of aspirin - Old myocardial infarction - Other intermediate (current) drug therapy - Personal history of nicotine dependence - Personal history of transient ischemic attack (TIA), and cerebral infarction without residual deficits - Unspecified injury of head, initial encounter 12/01/2024 14:06 [facility] [place] TYPE: Emergency COMPLAINT: - ALTERED LOC DIAGNOSES: - Allergy status to narcotic agent - Essential (primary) hypertension - regional intermodal truck driver (current) use of aspirin - regional intermodal truck driver (current) use of oral hypoglycemic drugs - Nausea - Other intermediate (current) drug therapy - Personal history of nicotine dependence - Unspecified abdominal pain 09/24/2024 17:11 [facility] [place] TYPE: Emergency COMPLAINT: - SHORTNESS OF BREATH DIAGNOSES: - Allergy status to narcotic agent - Essential (primary) hypertension - Other intermediate (current) drug therapy - Personal history of nicotine dependence - Personal history of urinary calculi - Pneumonia, unspecified organism - Shortness of breath 09/12/2024 16:01 [facility] [place] TYPE: Emergency COMPLAINT: - SHORTNESS OF BREATH DIAGNOSES: - Allergy status to narcotic agent - Cough, unspecified - Essential (primary) hypertension - Other intermediate (current) drug therapy - Personal history of [...] 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 - regional intermodal truck driver (current) use of oral hypoglycemic drugs - Old myocardial infarction - Other intermediate (current) drug therapy - Personal history of [...] infarction, unspecified - Essential (primary) hypertension - regional intermodal truck driver (current) use of aspirin - Old myocardial infarction - Other intermediate (current) drug therapy - Personal history of [...] narcotic agent - Essential (primary) hypertension - correction (current) use of aspirin - Other intermediate (current) drug therapy - Personal history of [...] cerebrovascular disease affecting right dominant side - correction (current) use of aspirin - regional intermodal truck driver (current) use of oral hypoglycemic drugs - [...] - Irritable bowel syndrome with constipation - correction (current) use of anticoagulants - Major depressive [...] Essential (primary) hypertension - Hyperlipidemia, unspecified - regional intermodal truck driver (current) use of aspirin - correction (current) use of oral hypoglycemic drugs - Obstructive sleep apnea (adult) (pediatric) - Old myocardial infarction - Other intermediate (current) drug therapy 05/15/2024 16:[address] [facility] TYPE: Medical [...] - Hypokalemia - Hypomagnesemia - Hypomagnesemia - correction (current) use of aromatase inhibitors - correction (current) use of aromatase inhibitors - correction (current) use of aspirin - regional intermodal truck driver (current) use of aspirin - correction (current) use of oral hypoglycemic drugs - regional intermodal truck driver (current) use of oral hypoglycemic drugs - correction (current) use of systemic steroids - regional intermodal truck driver (current) use of systemic steroids - Major depressive disorder, single episode, unspecified - Major depressive disorder, single episode, unspecified - Obesity, unspecified - Obesity, unspecified - Obstructive sleep apnea (adult) (pediatric) - Obstructive sleep apnea (adult) (pediatric) - Old myocardial infarction - Old myocardial infarction - Other cerebral infarction - Other cerebral infarction - Other regional intermodal truck driver (current) drug therapy - Other intermediate (current) drug therapy - Other specified bacterial [...] disturbance, mood disturbance, and anxiety - Weakness [email or web address]
[2025-01-20 14:16] LABS: BASOPHILS 0.4 % (0.2-1.2); EOSINOPHILS 1.5 % (0.8-7.0); LYMPHOCYTES 14.1 % (21.8-53.1); MCH 30.3 PG (25.7-32.2); MCHC 33.3 g/dL (32.3-36.5); MCV 91.0 fL (79.0-92.2); MONOCYTES 11.7 % (5.3-12.2); NEUTROPHILS 72.1 % (34.0-67.9); RBC 4.56 M/uL (4.63-6.08)
[2025-01-20] MEDS ORDERED: NUEDEXTA 20-101 EACH PO (14:24)
[2025-01-20 14:32] LABS: ALT (SGPT) 26.0 U/L (14-59); AST (SGOT) 16.0 U/L (15-37); GLOMERULAR FILTRATION RATE,EST 58.0 mL/min (>60); PROTEIN, TOTAL 7.1 g/dL (6.4-8.2); UREA NITROGEN 16.0 mg/dL (7-18)
[2025-01-20] MEDS ORDERED: LIDOCAINE 2% VISCOUS 6 ML SYR TOP ONE (14:45)
[2025-01-20 15:04] LABS: BLOOD/HGB, URINE NEGATIVE (Negative); KETONE, URINE TRACE (Negative); LEUK ESTERASE, URINE NEGATIVE (negative); NITRITE, URINE NEGATIVE (negative)
[2025-01-20] MEDS ORDERED: SODIUM CHLORIDE 0.9% 500 ML IV PRN (15:45)
[2025-01-20] MEDS ORDERED: NYSTATIN100000 UN1 PO (17:40)
[2025-01-20 17:49] VITALS: BP 139/81
== END 2025-01-20 20:31 | disposition home or self-care (01) ==
LOC: ED 13:45
PROVIDERS: Emergency Medicine
DX: R10.11 Right upper quadrant pain (principal); I12.9 Hypertensive chronic kidney disease with stage 1 through stage 4 chronic kidney disease, or unspecified chronic kidney disease; N18.9 Chronic kidney disease, unspecified; E11.22 Type 2 diabetes mellitus with diabetic chronic kidney disease; Z87.891 Personal history of nicotine dependence; Z88.5 Allergy status to narcotic agent
CPT/HCPCS: 36415; 51701; 74177; 80053; 81003; 83690; 85025; 99284-25; J7040; Q9967

== ENCOUNTER 2025-03-08 12:10 | Inpatient (IN) | payer MEDICARE, OTHER ==
[~2025-03-08] VITALS: Ht 185.4 cm; Wt 97.3 kg
[~2025-03-08 12:10] MED LIST changes: -ASPIRIN81 MG PO; -CARVEDILOL25 MG PO; +COREG12.5 MG PO; +DULCOLAX5 MG PO; -LAXATIVE SUPPOS10 MG PR; +MILK OF MA400 MG/5 M PO; -MILK OF MA400 MG/5 M PT; +NUEDEXTA 20-101 EACH PO; +NYSTATIN100000 UN1 PO; +ONDANSETRON HCL4 MG PO; -ONDANSETRON HCL4 MG PT; +POTASSIUM20 MEQ/15 PO; -POTASSIUM20 MEQ/15 PT; +TAMSULOSIN HCL0.4 MG PO; -TAMSULOSIN HCL0.4 MG PT; -TRANSDERM-SCOP1 EACH TD
[2025-03-08] MEDS ORDERED: MORPHINE SULFATE 10 MG/ML VIAL IV PRN (15:15)
[2025-03-08] MEDS ORDERED: HEParin SOD (PORCINE) 5,000 UNIT/ML SDV SUB-Q SCH (15:15)
[2025-03-08] MEDS ORDERED: DEXTROSE 5% - LACTATED RINGERS 1,000 ML IV SCH (15:15)
[2025-03-08 15:19] VITALS: BP 134/89
[2025-03-08] MEDS ORDERED: DULOXETINE HCL 60 MG CAP PO SCH (15:19)
[2025-03-08 15:21] LABS: BASOPHILS 0.3 % (0.2-1.2); EOSINOPHILS 1.7 % (0.8-7.0); LYMPHOCYTES 24.3 % (21.8-53.1); MCH 30.6 PG (25.7-32.2); MCHC 33.2 g/dL (32.3-36.5); MCV 92.1 fL (79.0-92.2); MONOCYTES 12.0 % (5.3-12.2); NEUTROPHILS 61.4 % (34.0-67.9); RBC 4.81 M/uL (4.63-6.08)
[2025-03-08] MEDS ORDERED: DIVALPROEX SODIUM 500 MG TABLET.DR PO SCH ×2 (15:30→18:30)
[2025-03-08] MEDS ORDERED: SCOPOLAMINE 1 MG/3 DAYS PATCH 1 EACH TDSY TD SCH (15:30)
[2025-03-08 15:41] LABS: INR 1.1 (0.80-1.30); PROTIME 13.5 Sec (11.2-14.2)
[2025-03-08 15:48] LABS: ALT (SGPT) 32.0 U/L (14-59); AST (SGOT) 31.0 U/L (15-37); GLOMERULAR FILTRATION RATE,EST 60.0 mL/min (>60); PROTEIN, TOTAL 7.8 g/dL (6.4-8.2); UREA NITROGEN 17.0 mg/dL (7-18)
[2025-03-08 15:49] LABS: VALPROIC ACID 28 ug/mL (50-100)
[2025-03-08] MEDS ORDERED: ALBUTEROL SULFATE 0.083% 3 ML VIAL INH PRN (16:00)
[2025-03-08] MEDS ORDERED: TYLENOL325 MG PO (16:17)
[2025-03-08] MEDS ORDERED: ATORVASTATIN CA40 MG PO (16:18)
[2025-03-08] MEDS ORDERED: KLONOPIN0.5 MG PO (16:21)
[2025-03-08] MEDS ORDERED: DULCOLAX10 MG PR (16:23)
[2025-03-08] MEDS ORDERED: GABAPENTIN300 MG PO (16:24)
[2025-03-08] MEDS ORDERED: GLUCAGON EMERGEN1 M1 IM (16:26)
[2025-03-08] MEDS ORDERED: MELATONIN5 M2 PO (16:27)
[2025-03-08] MEDS ORDERED: PRILOSEC OTC20 MG PO (16:29)
[2025-03-08] MEDS ORDERED: TUMS200 MG PO (16:32)
[2025-03-08] MEDS ORDERED: ZOLOFT100 MG PO (16:33)
--- NOTE | 2025-03-08 16:35 | NUR ---
MED REC COMPLETE
[2025-03-08] MEDS ORDERED: ATORVASTATIN 40 MG TAB PO SCH (17:00)
--- NOTE | 2025-03-08 17:05 | NUR ---
Spoke with pts Angeline. Pt cont. to reside at [facility]. Pt has had multiple strokes. Pt now has issues with his "gallbladder" per his . All care is provided at the SNF, including DME, medications. states pt will return there on discharge. She denies any needs. Pt has Medicare and Medicaid. He uses a [facility] for transfers and a wc. Per , at times he is able to stand and pivot transfer, depending on the cg at [facility]. She itz any needs and pt will return to [facility] when he is medically cleared for dc.
[2025-03-08 17:09] VITALS: BP 134/89
[2025-03-08] MEDS ORDERED: clonazePAM 0.5 MG TAB PO PRN (17:30)
[2025-03-08] MEDS ORDERED: GABAPENTIN 300 MG CAP PO SCH ×2 (18:00→21:00)
--- NOTE | 2025-03-08 18:00 | NUR ---
PATIENT IN BED, SON AT BEDSIDE. CALL LIGHT IN REACH. SCHEDULED MEDICATIONS ADMINISTERED.
[2025-03-08 18:05] VITALS: BP 126/89
--- NOTE | 2025-03-08 18:36 | NUR ---
PATIENT IN BED, SON AT BEDSIDE. EYES CLOSED, CHEST RISE EVEN AND UNLABORED. CALL LIGHT AND PERSONAL BELONGINGS IN REACH.
--- NOTE | 2025-03-08 19:15 | NUR ---
REPORT RECEIVED FROM DAY SHIFT RN. PT LYING IN BED AWAKE. FAMILY IN ROOM. SURGICAL CONSENT SIGNED BY . NO NEEDS AT THIS TIME. WHITE BOARD UPDATED. CALL LIGHT IN REACH.
[2025-03-08] MEDS ORDERED: POTASSIUM CHLORIDE 20 MEQ/15 ML CUP PO SCH (21:00)
[2025-03-08] MEDS ORDERED: TAMSULOSIN HCL 0.4 MG CAP PO SCH ×2 (21:00)
[2025-03-08] MEDS ORDERED: POTASSIUM CHLORIDE 20 MEQ/15 ML CUP PT SCH (21:00)
[2025-03-08] MEDS ORDERED: TAMSULOSIN HCL 0.4 MG CAP PT SCH (21:00)
[2025-03-08] MEDS ORDERED: FAMOTIDINE 20 MG/ 2 ML VIAL IV SCH (21:00)
[2025-03-08 21:03] VITALS: BP 120/76
[2025-03-08 21:05] VITALS: BP 120/76
--- NOTE | 2025-03-08 21:31 | NUR ---
PARTIAL TOP DENTURE ON A SOAKING CONTAINER PLACED BY THE BATHROOM SINK. PATIENT REFUSED THE LOWER ONE OFF.
--- NOTE | 2025-03-08 21:39 | NUR ---
EVENING ASSESSMENT COMPLETE. SCHEDULED MEDS ADMIN PER EMAR. NO SWALLOWING ISSUES NOTED. IV ABX INFUSING WNL. FLACC SCORE 4. PRN FOR PAIN ADMIN PER EMAR. 2PA TO REPOSITION IN BED. SCD'S IN PLACE. VS AND I&O OBTAINED. BED ALARM IN PLACE. CALL LIGHT IN REACH.
[2025-03-08] MEDS ORDERED: CEFAZOLIN SODIUM 2 GM in SODIUM CHLORIDE 0.9% 100 ML IV SCH (22:00)
--- NOTE | 2025-03-08 22:30 | NUR ---
PT IN BED RESTING WITH EYES CLOSED. RESPIRATIONS EVEN. BED ALARM IN PLACE. CALL LIGHT IN REACH.
[2025-03-09] VITALS (18 sets, daily range): BP systolic 76–132; BP diastolic 54–86
--- NOTE | 2025-03-09 00:10 | EKG ---
[facility] [address] [place] [address] Signed Sinus bradycardia Left axis deviation Abnormal ECG When compared with ECG of 01-DEC-2024 15:49, Vent. rate has decreased BY 42 BPM QT has shortened Confirmed by Amy Pierre MD () on 03/09/2025 12:09:55 AM Electronically Signed By: AMY PIERRE MD 03/09/25 0010 PATIENT NAME: BABAKMAGALYS SAMUEL Electrocardiogram DATE OF : 59 PHYSICIAN: AMY PIERRE MD REPORT #: [id number] REPORT IS CONFIDENTIAL AND NOT TO BE RELEASED WITHOUT AUTHORIZATION
--- NOTE | 2025-03-09 00:12 | NUR ---
PT RESTING WITH EYES CLOSED. RESPIRATIONS EVEN. PT NPO. WATER REMOVED. IVF INFUSING PER ORDER. CALL LIGHT IN REACH. BED ALARM IN PLACE.
--- NOTE | 2025-03-09 01:37 | NUR ---
PT RESTING WITH EYES CLOSED. AWAKENS EASILY. VS AND I&O OBTAINED. PT DUE TO VOID. BLADDER SCANNED FOR 324 ML. MALE PUREWICK IN PLACE. 2PA TO REPOSITION IN BED. PT LEFT LYING IN RELAXED POSITION. BED ALARM IN PLACE. CALL LIGHT IN REACH.
--- NOTE | 2025-03-09 03:01 | NUR ---
PT RESTING IN BED WITH EYES CLOSED. RESPIRATIONS EVEN. CALL LIGHT IN REACH. BED ALARM IN PLACE.
[2025-03-09] MEDS ORDERED: LACTATED RINGER'S 1,000 ML IV SCH (05:00)
--- NOTE | 2025-03-09 06:19 | NUR ---
LAB IN FOR MORNING DRAW. VS AND I&O OBTAINED. PT DUE TO VOID. BLADDER SCANNED FOR APPROX 370 ML. NOTIFIED. NO NEW ORDERS RECEIVED. 2PA TO REPOSITION IN BED. BED ALARM FOR SAFETY. CALL LIGHT IN REACH.
[2025-03-09 06:32] LABS: ALT (SGPT) 24.0 U/L (14-59); AST (SGOT) 24.0 U/L (15-37); GLOMERULAR FILTRATION RATE,EST 81.0 mL/min (>60); PROTEIN, TOTAL 6.4 g/dL (6.4-8.2); UREA NITROGEN 14.0 mg/dL (7-18)
[2025-03-09] MEDS ORDERED: LIDOCAINE HCL 1% 5 ML SDV INJ ONE (07:00)
[2025-03-09] MEDS ORDERED: IBLOOD GLUCOSE TEST STRIP 1 EA TEST VI PRN (07:00)
[2025-03-09] MEDS ORDERED: CEFAZOLIN SODIUM 2 GM in SODIUM CHLORIDE 0.9% 100 ML IV SCH (07:00)
--- NOTE | 2025-03-09 07:20 | NUR ---
REPORT RECEIVED FROM GALLO BARTLETT. PATIENT IN BED, EYES CLOSED, CHEST RISE EVEN AND UNLABORED. CALL LIGHT IN REACH.
--- NOTE | 2025-03-09 07:30 | NUR ---
CALLED MD TERRAZAS. VERBAL ORDER RECEIVED TO ADMINISTER 0900 MEDICATIONS NOW WITH SMALL SIP OF WATER. NO FURTHER ORDERS AT THIS TIME.
--- NOTE | 2025-03-09 07:49 | NUR ---
RADIO BOARD OPERATOR ANNOUNCERDHRUV KIRBY TO FLOOR. PATIENT OFF FLORR WITH KOFI VIA STRETCHER. SCHEDULED MEDICATIONS ADMINISTERED WITH SMALL SIPS OF WATER DIRECTED BY MD TERRAZAS. OFF UNIT WITH PATIENT AT THIS TIME.
[2025-03-09] MEDS ORDERED: DEXTROSE 50% 50 ML SYR ONE (08:15)
[2025-03-09] MEDS ORDERED: LIDOCAINE HCL 2% 5 ML SDV ONE ×3 (08:32→09:14)
[2025-03-09] MEDS ORDERED: DEXAMETHASONE SOD PHOS 4 MG/ML VIAL ONE ×2 (08:32→08:33)
[2025-03-09] MEDS ORDERED: SUCCINYLCHOLINE IN 0.9% NACL 200 MG/10 ML SYRINGE ONE (08:32)
[2025-03-09] MEDS ORDERED: ACETAMINOPHEN 1,000 MG/100 ML VIAL ONE (08:32)
[2025-03-09] MEDS ORDERED: fentaNYL citrate 100 MCG/2 ML VIAL ONE (08:32)
[2025-03-09] MEDS ORDERED: ROCURONIUM BROMIDE 50 MG/5 ML SYR ONE (08:32)
[2025-03-09] MEDS ORDERED: SUGAMMADEX SODIUM 200 MG/2 ML ML ONE (08:33)
[2025-03-09] MEDS ORDERED: NOREPINEPHRINE BITARTRATE 4 MG/4 ML AMP ONE (08:43)
[2025-03-09] MEDS ORDERED: GLYCOPYRROLATE 1 MG/5 ML MDV ONE (08:53)
[2025-03-09] MEDS ORDERED: SERTRALINE HCL 100 MG TAB PO SCH (09:00)
[2025-03-09] MEDS ORDERED: LACTATED RINGER'S 1,000 ML IV ONE (09:14)
--- NOTE | 2025-03-09 09:25 | NUR ---
REPORT RECEIVED FROM PROCUREMENT INTERNSHIP. PATIENT ARRIVES TO UNIT VIA STRETCHER. VITAL SIGNS COMPLETE. CALL LIGHT IN REACH. ASSESMENT COMPLETE.
--- NOTE | 2025-03-09 09:53 | NUR ---
03/09/25 0953 Enid Dee LE 0936: PT ARRIVES TO PACU ON ROOM AIR. HE IS IMMEDIATELY CONNECTED TO OXYGEN AND PUT ON 10L VIA MASK. JAW THRUST BEING PERFORMED. REPORT RECEIVED FROM DEMOLITION HAMMER OPERATOR AND DOUBLE NEEDLE OPERATOR. LE 0946: ORAL AIRWAY PLACED AT BEDSIDE BY DOUBLE NEEDLE OPERATOR. JAW THRUST NO LONGER NEEDED. REMAINS ON 10L VIA MASK.
--- NOTE | 2025-03-09 09:55 | NUR ---
Into room to speak with pt and . Pt not in room. Dr. Cobos present updating on surgery. Pt will be able to return to [place] this afternoon. He would like the pt to eat prior to dc. I will contact EMS for transport when pt is closer to dc.
--- NOTE | 2025-03-09 10:15 | NUR ---
Called and spoke with Domingo in admissions. Pt may return any time today. He does not needs SNF orders as he is OBS. He will need signed dc orders.
--- NOTE | 2025-03-09 11:05 | NUR ---
UR CLINICAL REVIEW: 2 MN FOR VERSALUS-PER ASSISTANT MANAGER PT MEETS OBS FOR ACUTE COLT WITH NEED FOR PRE OP HOSPITALIST CONSULT, PRE OP LABS AND MONITORING MEDICARE OBS 03/08/25 @ 1506 ORDER MATCHES REG NO AUTH REQUIRED PER MEDICARE GUIDELINES ANTICIPATE DISCHARGE TO HOME 03/09/25 03/10/25
[2025-03-09] MEDS ORDERED: NALOXONE HCL 0.4 MG SYR ONE (11:31)
[2025-03-09] MEDS ORDERED: POTASSIUM CHLORIDE 10 MEQ TABCR PO SCH (12:00)
--- NOTE | 2025-03-09 12:12 | NUR ---
REPORT RECEIVED FROM EQUIPMENT STERILIZER. PATIENT TO UNIT VIA STRETCHER. VITAL SIGNS COMPLETE. CALL LIGHT IN REACH. FAMILY AT BEDSIDE.
[2025-03-09] MEDS ORDERED: OXYCODONE HCL 5 MG TAB PO PRN (12:15)
[2025-03-09] MEDS ORDERED: ACETAMINOPHEN 500 MG TAB PO PRN (12:15)
[2025-03-09] MEDS ORDERED: FUROSEMIDE 20 MG/2 ML VIAL IV ONE (12:15)
--- NOTE | 2025-03-09 13:20 | NUR ---
PATIENT IN BED, FAMILY AT BEDSIDE. VITAL SIGNS COMPLETE. MEDICATIONS ADMINISTERED PER MEAR. CALL LIGHT IN REACH.
--- NOTE | 2025-03-09 13:30 | NUR ---
Spoke with staff, pt remains sleepy. Has not eaten yet.
--- NOTE | 2025-03-09 13:43 | NUR ---
PATIENT IS LAYING IN BED. PATIENTS WAS CHECK AND WAS DRY. PATIENTS I&OS WERE DONE. CALL LIGHT IS WITHIN REACH AND NO FURTHER NEEDS AT THIS TIME.
--- NOTE | 2025-03-09 14:25 | NUR ---
PATIENT IN BED, FAMILY AT BEDSIDE. 95% ON 2L NC OXYGEN. SCHEDULED MEDICATIONS ADMINISTERED PER EMAR. PATIENT REPOSITIONED IN BED. CALL LIGHT IN REACH.
--- NOTE | 2025-03-09 15:07 | NUR ---
PATIENT IN BED, CALL LIGHT IN REACH. AT BEDSIDE. PATIENT STATES "YES" THAT HE FEELS OK AFTER LUNCH. ASSESMENT COMPLETE.
--- NOTE | 2025-03-09 15:27 | NUR ---
PATIENT ROUSABLE TO STIMULI ON ENTERING ROOM. VITAL SIGNS COMPLETED BLOOD GLUCOSE 152. MD ESCOBAR BEE AT BEDSIDE. VERBAL ORDER RECEIVED FOR 500 ML LR IV BOLUS AND 2L O2 VIA NC. BOLUS INFUSING WITHOUT DIFFICULTY. AT BEDSIDE.
[2025-03-09] MEDS ORDERED: LACTATED RINGER'S 500 ML IV ONE (15:30)
--- NOTE | 2025-03-09 15:36 | NUR ---
PATIENT ROUSES TO VOICE AT THIS TIME. IV BOLUS INFUSING WITHOUT DIFFICULTY, AT BEDSIDE.
--- NOTE | 2025-03-09 15:46 | NUR ---
PATIENT NOW WITH VERBAL MOANING SPONTANEOUSLY. AT BEDSIDE. IV FLUID BOLUS INFUSING WITHOUT DIFFICULTY.
[2025-03-09] MEDS ORDERED: SEVOFLURANE 250 ML BTL INH ONE (16:13)
--- NOTE | 2025-03-09 16:36 | NUR ---
PATIENT IN BED, FAMILY AT BEDSIDE. CALL LIGHT IN REACH.
--- NOTE | 2025-03-09 17:51 | NUR ---
PATIENT IN BED, CALL LIGHT IN REACH. MEDICATIONS ADMINISTERED PER EMAR. PATIENT REFUSED POTASSIUM, SPITTING MEDICATION OUT AND STATING , "NO". CALL LIGHT IN REACH
--- NOTE | 2025-03-09 18:09 | NUR ---
PATIENT IS LAYING IN BED. PATIENTS CHUX PADS WERE CHANGED. PATIENTS VITAL SIGNS AND I&OS WERE DONE. CALL LIGHT IS WITHIN REACH AND NO FURTHER NEEDS AT THIS TIME.
--- NOTE | 2025-03-09 18:38 | NUR ---
PATIENT IN BED, EYES CLOSED, CHEST RISE EVEN AND UNLABORED. CALL LIGHT IN REACH.
--- NOTE | 2025-03-09 19:13 | NUR ---
REPORT RECEIVED FROM DAY SHIFT RN. PT LYING IN BED RESTING WITH EYES CLOSED. RESPIRATIONS EVEN. WHITE BOARD UPDATED. BED ALARM IN PLACE. CALL LIGHT IN REACH.
--- NOTE | 2025-03-09 20:30 | NUR ---
PT LYING IN BED IN RELAXED POSITION. NO S/SX OF PAIN. BED ALARM IN PLACE. CALL LIGHT IN REACH.
--- NOTE | 2025-03-09 22:04 | NUR ---
EVENING ASSESSMENT COMPLETE. SCHEDULED MEDS ADMIN PER EMAR. IVF INFUSING WNL. ABD LAP SITES X 5 WITH SCANT AMOUNT SEROSANG DRAINAGE. BOWEL TONES ACTIVE. ABD SOFT. PUREWICK IN PLACE WITH QS CONCENTRATED URINE. CPOX AND 2L/NC IN PLACE. SpO2 MID 90'S. SCD'S IN PLACE. VS AND I&O OBTAINED. LOW BP NOTED. FLACC SCORE 4. ATTEMPTED MULTIPLE TIMES TO ADMIN TYLENOL, PT SPIT TABLET OUT. PHONE CALL PLACED TO MD. AWAITING RESPONSE. BED ALARM IN PLACE. CALL LIGHT IN REACH.
--- NOTE | 2025-03-09 22:38 | NUR ---
PT AWAKE IN BED. MOANING WITH OCCASIONAL GRIMACE. PRN FOR PAIN ADMIN CRUSHED WITH BITES OF PUDDING. ICE PACK TO ABD. WATER PROVIDED. BP REASSESSED. PT REMOVED OXYGEN. SpO2 MID 90'S. OXYGEN LEFT OFF AT THIS TIME. BED ALARM FOR SAFETY. CALL LIGHT IN REACH.
[2025-03-09] MEDS ORDERED: LACTATED RINGER'S 500 ML IV SCH (23:30)
[2025-03-09] MEDS ORDERED: KETOROLAC TROMETHAMINE 30 MG/ML VIAL IV PRN (23:30)
--- NOTE | 2025-03-09 23:35 | NUR ---
UPDATE PROVIDED TO . NEW TELEPHONE ORDERS RECEIVED VERIFIED WITH READBACK METHOD.
[2025-03-09] MEDS ORDERED: LACTATED RINGER'S 500 ML IV PRN (23:45)
--- NOTE | 2025-03-09 23:52 | NUR ---
PT AWAKE IN BED. RESTLESS/MOANING. FLACC SCORE 5. PRN FOR PAIN ADMIN PER EMAR. BOLUS INFUSING PER ORDER. ASSISTED TO REPOSITION FOR COMFORT.
[2025-03-10] VITALS (8 sets, daily range): BP systolic 78–115; BP diastolic 40–83
--- NOTE | 2025-03-10 00:54 | NUR ---
OCCASIONAL MOAN NOTED. 2PA TO REPOSITION IN BED. WARM BLANKET PROVIDED. SIPS OF WATER GIVEN. PT LEFT IN RELAXED POSITION. BOLUS COMPLETE. BED ALARM IN PLACE. CALL LIGHT IN REACH.
--- NOTE | 2025-03-10 02:19 | NUR ---
THIS RN AND PIT INSPECTOR ASSISTED IN REPOSITIONING PT WITH PILLOW UNDER R SIDE. PT STATES "NO" WHEN ASKED ABOUT PAIN, CALL LIGHT WITHIN REACH, ROOM NEAR NURSES STATION.
--- NOTE | 2025-03-10 03:02 | NUR ---
PT IN BED RESTING WITH EYES CLOSED. RESPIRATIONS EVEN. CALL LIGHT IN REACH. BED ALARM FOR SAFETY.
--- NOTE | 2025-03-10 04:59 | NUR ---
OCCASIONAL MOAN/GRIMACE NOTED. PRN FOR PAIN ADMIN PER EMAR. VS AND I&O OBTAINED. WATER PROVIDED. 2PA TO REPOSITION IN BED. BED ALARM IN PLACE. CALL LIGHT IN REACH.
--- NOTE | 2025-03-10 06:41 | NUR ---
PT RESTING WITH EYES CLOSED. AWAKENS BRIEFLY WITH CARES. SpO2 86% ON RA. 2L/NC PLACED. SpO2 UP TO 92%. SCHEDULED MEDS ADMIN PER EMAR.
--- NOTE | 2025-03-10 07:20 | NUR ---
DC REVIEW: PATIENT HYPOTENSIVE FOLLOWING PROCEDURE DELAYING DISCHARGE. PATIENT REMAINS HYPOTENSIVE, WILL DISCUSS CHANGE OF STATUS TO INPT IF NOT ABLE TO DC TODAY. RETURN TO SNF WHEN STABLE NO ACTIONS REQUIRED.
--- NOTE | 2025-03-10 07:29 | NUR ---
REPORT RECEIVED FROM GALLO BARTLETT. PATIENT IN BED, EYES CLOSED, CHEST RISE EVEN AND UNLABORED. CALL LIGHT IN REACH.
--- NOTE | 2025-03-10 08:27 | NUR ---
RN ASKED IF I COULD RE-TAKE HIS BP AND PULSE, HDRUV HAYES RE-TOOK IT BY HAND. INDUSTRIAL LOCOMOTIVE OPERATOR CHARTED FOR RN.
--- NOTE | 2025-03-10 08:41 | NUR ---
PATIENT IN BED, ROUSES SPONTANEOUSLY AND TO VERBAL STIMULI. OXYGEN 91% ON 3L OXY MASK. CALL LIGHT IN REACH. AT BEDSIDE.
--- NOTE | 2025-03-10 09:30 | NUR ---
Spoke with Angeline, pts . Dr. Cobos spoke with them and plans on further lab work and then transfer back to [place].
[2025-03-10 10:20] LABS: BASOPHILS 0.1 % (0.2-1.2); EOSINOPHILS 0 % (0.8-7.0); LYMPHOCYTES 8.4 % (21.8-53.1); MCH 31.2 PG (25.7-32.2); MCHC 32.9 g/dL (32.3-36.5); MCV 94.8 fL (79.0-92.2); MONOCYTES 8.9 % (5.3-12.2); NEUTROPHILS 82.2 % (34.0-67.9); RBC 3.24 M/uL (4.63-6.08)
--- NOTE | 2025-03-10 10:21 | NUR ---
PATIENT IN BED. ASSESMENT COMPLETE. ASSISTING PATIENT WITH BREAKFAST. CALL LIGHT IN REACH.
[2025-03-10 10:41] LABS: ALT (SGPT) 17.0 U/L (14-59); AST (SGOT) 16.0 U/L (15-37); GLOMERULAR FILTRATION RATE,EST 48.0 mL/min (>60); PROTEIN, TOTAL 6.0 g/dL (6.4-8.2); UREA NITROGEN 16.0 mg/dL (7-18)
--- NOTE | 2025-03-10 10:54 | NUR ---
PATIENT IN BED, AT BEDSIDE. CALL LIGHT IN REACH.
--- NOTE | 2025-03-10 11:06 | NUR ---
Updated Domingo at [facility], pt will most likely return today. would like him to return by EMS.
--- NOTE | 2025-03-10 11:10 | NUR ---
PLACED CALL TO MD TERRAZAS. REVIEWED THAT LAB RESULTS ARE BACK, REVIEWED CURRENT H/H. VERBALIZED UNDERSTANDING AND STATES HE WILL REVIEW LAB RESULTS. NO ORDERS AT THIS TIME.
--- NOTE | 2025-03-10 11:19 | NUR ---
NOtified by staff they spoke with Dr. Cobos. Pt I texted him to sign the transport pt. He replyed the pt will be staying as his HCT dropped. I updated Domingo at T.
--- NOTE | 2025-03-10 11:59 | NUR ---
PATIENT IN BED, AND MD AT BEDSIDE. VERBAL ORDER RECEIVED FROM MD TO NOTIFY HIM IF CREATININE IS FURTHER DECREASED. NO FURTHER ORDERS AT THIS TIME. CALL LIGHT IN REACH.
[2025-03-10] MEDS ORDERED: DIVALPROEX SODIUM 500 MG TABLET.DR PO ONE (12:15)
--- NOTE | 2025-03-10 13:12 | NUR ---
PC to Dr. Dsouza to notify him of this patient's urine output up to date. Advised him that this pt had 300ml u/o documented at 0430 this morning, and nothing since then. His bladder scan showed 604ml urine in bladder. Telephone order obtained from Dr. Dsouza to insert rousseau catheter now and leave in for now. Repeated back the order for confirmation, and notified the primary RN.
--- NOTE | 2025-03-10 13:36 | NUR ---
PATIENT WITHOUT VOID ON THIS SHIFT. BLADDER SCAN WITH 605. KARL CALLED TO MD TERRAZAS, ORDER RECEIVED FOR GANT CATHETER. 16 TURKISH GANT CATHETER PLACED PER ORDER, 10 ML STERILE WATER INSTILLED INTO BALLOON. 350 ML URINE OUT AT THIS TIME. PATIENT TOLERATED WELL. AT BEDSIDE. CALL LIGHT IN REACH.
[2025-03-10] MEDS ORDERED: phenoL 177 ML SPRAY MT PRN (13:45)
[2025-03-10 14:03] LABS: BASOPHILS 0.1 % (0.2-1.2); EOSINOPHILS 0 % (0.8-7.0); LYMPHOCYTES 11.4 % (21.8-53.1); MCH 31.4 PG (25.7-32.2); MCHC 32.9 g/dL (32.3-36.5); MCV 95.5 fL (79.0-92.2); MONOCYTES 9.0 % (5.3-12.2); NEUTROPHILS 79.0 % (34.0-67.9); RBC 3.09 M/uL (4.63-6.08)
--- NOTE | 2025-03-10 15:24 | NUR ---
PATIENT IN BED, FAMILY AT BEDSIDE. CALL LIGHT IN REACH. MEDICATION ADMINISTERED PER EMAR.
--- NOTE | 2025-03-10 15:48 | NUR ---
RECEIVED CALL FROM MD TERRAZAS. REVIEWED LAB RESULTS AND MOST RECENT BITAL SIGN AT HIS REQUEST. VERBAL ORDER RECEIVED FOR CBC LAB 03/11/25 0500 DRAW. NO FURTHER ORDERS AT THIS TIME.
--- NOTE | 2025-03-10 15:58 | NUR ---
PATIENT IN BED, FAMILY AT BEDSIDE. ASSISTED PATIENT ONTO BEDPAN AT PATIENT REQUEST. CALL LIGHT IN REACH.
--- NOTE | 2025-03-10 16:37 | NUR ---
In with pt and primary RN to trouble shoot rousseau catheter. Initially, RN Radha bladder scanned the pt for 604ml, obtained an order from Dr. Dsouza to insert a rousseau catheter to leave in for now. After insertion, she obtained 350ml dark colored urine. Pt still has not had adequate U/O with rousseau and was bladder scanned again with 220ml. Pt does moan and mumble but when asked if he's in pain, he says, "no".
[2025-03-10] MEDS ORDERED: IBLOOD GLUCOSE TEST STRIP 1 EA TEST XX PRN (17:00)
[2025-03-10] MEDS ORDERED: IBLOOD GLUCOSE TEST STRIP 1 EA TEST VI SCH (17:00)
[2025-03-10] MEDS ORDERED: DEXTROSE 5% 1,000 ML IV PRN (17:00)
[2025-03-10] MEDS ORDERED: GLUCAGON,HUMAN RECOMBINANT 1 MG/ML VIAL SUB-Q PRN (17:00)
[2025-03-10] MEDS ORDERED: INSULIN LISPRO 100 UNIT/ML ML SUB-Q SCH (17:00)
[2025-03-10] MEDS ORDERED: DEXTROSE 50% 50 ML SYR IV PRN ×2 (17:00)
[2025-03-10] MEDS ORDERED: LIDOCAINE 2% VISCOUS 6 ML SYR ONE (17:59)
[2025-03-10] MEDS ORDERED: LIDOCAINE 2% VISCOUS 6 ML SYR TOP ONE (18:15)
--- NOTE | 2025-03-10 18:15 | NUR ---
Spoke with Dr. Cabrera about the urinary retention that this pt has been experiencing. After the rousseau was inserted, 350ml of urine was evacuated from the bladder. However, the amount of urine obtained post rousseau insertion was still diminished and another bladder scan was performed to show 220ml in the bladder. Dr. Cabrera verbally ordered the primary RN to replace this 16fr rousseau with an 18fr rousseau in the event a larger thai is needed to drain the bladder. This was completed by the Primary RN, Radha. After the 16fr was removed (after deflating the balloon), the pt began to urinate but instantly began crying out, reached down and grabbed his penis and squeezed it, appearing to try to stop the flow of urine. When asked if it ballard, he said, "yes". Obtained another order from Dr. Cabrera, to obtain a urine specimen and send to the lab for UA. A very small amount of urine was collected from the rousseau tubing after insertion of the 18fr catheter and sent to lab. Uroject was utilized to alleviate some of the discomfort with insertion. Pt tolerated procedure. Pt able to roll, with assistance, from one side, then the other, for removal of the wet chux, cath care completed by Primary RN. Primary RN was the cutting and splicing supervisor of the rousseau catheter with this RN present to assist as needed.
--- NOTE | 2025-03-10 18:42 | NUR ---
PATIENT WITH 220 IN BLADDER WITH 16 BULGARIAN G[address] CATHETER IN PLACE. CONFIRMED PLACEMENT AND FLUSHED WITH 50ML. FLUSH GOES IN WITHOUT DIFFICULTY AND RESISTENCE IS INTERMITTENT WHEN DRAWING FLUSH OUT. URINE IS LEAKING OUT OF URETHRA. DISCUSSED WITH MD GAMBINO. VERBAL ORDER RECEIVED TO REMOVE GANT AND PLACE 18 BULGARIAN GANT. 16 BULGARIAN GANT REMOVED, 10 ML STERILE WATER REMOVED FROM BALOON, TIP INTACT. ON REMOVAL PATIENT URINATES HIMSELF AND GROANS LOUDLY. WHEN ASKED, "DOES THAT BURN" PATIENT STATES, "YEAH. BLADDER SCAN NOW SHOES 95 OF URINE IN BLADDER POST VOID. REVIEWED WITH MD GAMBINO. VERBAL ORDER RECEIVED TO CONTINUE WITH PLACEMENT OF 18 BULGARIAN GANT AND OBTAIN CLEAN CATCH UA. 18 BULGARIAN GANT PLACED WITH ASSISTANCE OF KARL BARTLETT. PATIENT TOLERATED WELL. LESS THAN 10 ML URINE RECEIVED ON PLACEMENT. SAMPLE COLLECTED AND SENT TO LAB. PATIENT REPOSITIONED IN BED. PATIENT IN BED, CALL LIGHT IN REACH.
[2025-03-10 18:55] LABS: BLOOD/HGB, URINE LARGE (Negative); KETONE, URINE TRACE (Negative); LEUK ESTERASE, URINE SMALL (negative); NITRITE, URINE NEGATIVE (negative)
[2025-03-10 19:01] LABS: BACTERIA, URINE RARE /hpf (negative); CRYSTALS, URINE NONE SEEN (0-1+); EPITHELIAL CELLS, URINE NONE SEEN /lpf (0-1+)
[2025-03-10 19:02] LABS: CASTS, URINE HYALINE 3+ \\lpf; REFLEX CULTURE, URINE Yes (No)
--- NOTE | 2025-03-10 19:25 | NUR ---
REPORT RECEIVED FROM DHRUV HAYES. PATIENT SEMI-FOWLERS IN BED. RESPIRATIONS EVEN AND UNLABORED. CPOX AT BEDSIDE. NO NEEDS AT THIS TIME, CALL LIGHT IN REACH
--- NOTE | 2025-03-10 21:45 | NUR ---
VS OBTAINED AND RECORDED. INTAKE AND OUTPUT RECORDED. ASSESSMENT COMPLETE. PATIENT NODDING YES AND NO TO QUESTIONS APPROPRIATELY, FOLLOWING COMMANDS WITH MOVEMENT. NOT ORIENTED TO PLACE BUT ANSWERS CORRECTLY ON SELF AND DATE. PATIENT ANXIOUS, BUT DECLINES ALL ORAL MEDICATIONS, PUSHING RN AWAY DURING ATTEMPT. GIVEN FRESH WATER. CALL LIGHT IN REACH, BED ALARM ON.
--- NOTE | 2025-03-10 23:12 | NUR ---
ROUNDED ON PATIENT, PATIENT AWAKE AND WATCHING TV. RESPIRATIONS EVEN AND UNLABORED. NO NEEDS IDENTIFIED, CALL LIGHT IN REACH
--- NOTE | 2025-03-11 01:40 | NUR ---
ROUNDED ON PATIENT, RESTING WITH EYES CLOSED, RESPIRATIONS EVEN AND UNLABORED. NO NEEDS, CALL LIGHT IN REACH
--- NOTE | 2025-03-11 02:52 | NUR ---
ROUNDED ON PATIENT, PATIENT RESTING WITH EYES CLOSED, RESPIRATIONS EVEN AND UNLABORED. NO NEEDS, CALL LIGHT IN REACH
[2025-03-11 05:35] VITALS: BP 111/65
[2025-03-11 05:40] VITALS: BP 111/65
--- NOTE | 2025-03-11 05:41 | NUR ---
VS OBTAINED AND RECORDED. OUTPUT DOCUMENTED. PATIENT NODDING YES AND NO IN RESPONSE TO QUESTIONS. PATIENT ORIENTED TO SELF AND YEAR. NO OTHER NEEDS IDENTIFIED, CALL LIGHT IN REACH
[2025-03-11 05:48] LABS: BASOPHILS 0.2 % (0.2-1.2); EOSINOPHILS 0.2 % (0.8-7.0); LYMPHOCYTES 20.0 % (21.8-53.1); MCH 31.3 PG (25.7-32.2); MCHC 33.1 g/dL (32.3-36.5); MCV 94.4 fL (79.0-92.2); MONOCYTES 8.9 % (5.3-12.2); NEUTROPHILS 70.3 % (34.0-67.9); RBC 2.88 M/uL (4.63-6.08)
[2025-03-11 06:13] LABS: ALT (SGPT) 20.0 U/L (14-59); AST (SGOT) 19.0 U/L (15-37); GLOMERULAR FILTRATION RATE,EST 60.0 mL/min (>60); PROTEIN, TOTAL 5.9 g/dL (6.4-8.2); UREA NITROGEN 17.0 mg/dL (7-18)
--- NOTE | 2025-03-11 07:11 | NUR ---
REPORT RECEIVED FROM DHRUV WHITTAKER. PATIENT RESTING IN BED, AWAKE. NEW BAG OF FLUIDS INFUSING PER ORDER. CALL LIGHT AND PERSONAL BELONGINGS ARE WITHIN REACH.
--- NOTE | 2025-03-11 08:05 | NUR ---
ATTEMPTED TO MEDICATE PATIENT. PATIENT UNABLE TO SWALLOW PO MEDICATIONS. CHARGE NURSE NOTIFIED TO NOTIFY MD IN MORNING MEETING. PATIENT REPOSITIONED IN BED BY THIS RN AND HERMINIA JAMES. CALL LIGHT AND PERSONAL BELONGINGS ARE WITHIN REACH.
[2025-03-11] MEDS ORDERED: MAGNESIUM OXIDE 400 MG TABLET PO ONE (09:00)
--- NOTE | 2025-03-11 09:10 | NUR ---
PER DR GAMBINO, THROAT SPRAY APPLIED TO PATIENT'S THROAT. MD STATES HE WANTS THIS RN TO SPRAY PATIENT'S THROAT TO SEE IF PATIENT WILL SWALLOW MEDICATIONS AFTER DUE TO POSSIBLE THROAT DISCOMFORT AFTER PROCEDURE INTUBATION. THIS RN USED LEMON SWAB TO HOLD DOWN PATIENT'S TONGUE TO SPRAY THROAT DUE TO PATIENT NOT FOLLOWING COMMANDS. ATTEMPTED TO GIVE PATIENT WATER WITH A STRAW, BUT PATIENT WAS NOT ABLE TO SWALLOW, FLUIDS DRIPPING OUT OF PATIENT'S MOUTH. PO MEDICATIONS NOT ADMINISTERED BY THIS RN DUE TO UNSAFE ADMINISTRATION. DR GAMBINO AND ZOEY, TECHNICAL SPECIALIST AT BEDSIDE. PATIENT'S ALSO AT BEDSIDE.
--- NOTE | 2025-03-11 09:32 | NUR ---
CALLED JULIANNA FROM [facility]
--- NOTE | 2025-03-11 10:00 | NUR ---
PATIENT RESTING IN BED AND APPEARS COMFORTABLE. PATIENT'S AT BEDSIDE. PATIENT'S UPPER BODY READJUSTED. FRESH COFFEE PROVIDED TO PATIENT'S . NO FURTHER NEEDS AT THIS TIME. CALL LIGHT AND PERSONAL BELONGINGS ARE WITHIN REACH.
[2025-03-11 10:55] VITALS: BP 128/72
--- NOTE | 2025-03-11 11:00 | NUR ---
PATIENT IS IN BED AT THIS TIME, SENIOR SALES OPERATIONS MANAGER CHARTED VITALS, CALL LIGHT WITH IN REACH AND NOTHING ELSE NEEDED AT THIS TIME.
[2025-03-11 11:52] VITALS: BP 128/72
--- NOTE | 2025-03-11 12:15 | NUR ---
PATIENT'S CBG NOTED TO BE 62. PATIENT MEDICATED PER EMAR. PATIENT'S FAMILY AT BEDSIDE. NO FURTHER NEEDS AT THIS TIME. CALL LIGHT AND PERSONAL BELONGINGS ARE WITHIN REACH. PATIENT'S IV FLUSHED WITH 10ML OF NS, DRESSING IS INTACT. IV FLUIDS INFUSING PER EMAR.
--- NOTE | 2025-03-11 12:38 | NUR ---
I RETOOK PATIENTS BS TO CHECK PER RN SUDHAKAR AND MANJINDER.
--- NOTE | 2025-03-11 12:58 | NUR ---
PATIENT IS IN BED AT THIS TIME, DHRUV DUNBAR AND I GAVE PATIENT A BED BATH, CHANGED BREIF, DID GANT CARE, GOT A NEW GOWN, IN ROOM. CALL LIGHT WITH IN REACH AND NOTHING ELSE NEEDED AT THIS TIME.
--- NOTE | 2025-03-11 13:14 | NUR ---
PATIENT NOTED TO ONLY HAVE 175ML OF UO FOR SHIFT AT THIS TIME. DR GAMBINO NOTIFIED. MD WITH VERBAL ORDER FOR 1L LR BOLUS AT THIS TIME. NO FURTHER ORDERS. MD ALSO UPDATED ON PATIENT RISE IN BLOOD SUGAR FROM 62 TO 111.
[2025-03-11] MEDS ORDERED: LACTATED RINGER'S 1,000 ML IV ONE (13:30)
[2025-03-11] MEDS ORDERED: DIVALPROEX SODIUM 500 MG TABLET.DR ONE (14:11)
[2025-03-11] MEDS ORDERED: HALOPERIDOL LACTATE 5 MG/ML VIAL IV ONE (15:45)
--- NOTE | 2025-03-11 15:54 | NUR ---
PTS CALLED RN INTO ROOM AND REQUESTED PT BE MEDICATED FOR ANXIETY. PT CONTINUES TO CALL OUT "NO, NO, NO," PTS STATES HE DOES THIS WHEN AGGITATED. GIVEN 0.5 MG IV HALDOL. PT APPEARS TO BE COMPLAINING ABOUT IV SITE. IV DRAWS BACK BLOOD AND FLUSHES WELL
[2025-03-11] MEDS ORDERED: HALOPERIDOL LACTATE 5 MG/ML VIAL IV PRN (16:00)
--- NOTE | 2025-03-11 16:45 | NUR ---
THIS RN AND PT IN ROOM ASSESSING PATIENT FOR PT ORDERS
--- NOTE | 2025-03-11 19:42 | NUR ---
VERBAL REPORT RECEIVED FROM MANJINDER BARTLETT. PATIENT IS RESTING IN BED EYES CLOSED, RESPIRATIONS EVEN AND UNLABORED. BED ALARM ON FOR PATIENT SAFETY. CALL LIGHT IN REACH.
[2025-03-11] MEDS ORDERED: FAMOTIDINE 20 MG TAB PO SCH (21:00)
[2025-03-11 22:26] VITALS: BP 132/70
--- NOTE | 2025-03-11 22:28 | NUR ---
AEMT OBTAINED VITALS AND I&O. PT STATES NO NEEDS AT THIS TIME. CALL LIGHT WITHIN REACH AND BED ALARM ON.
--- NOTE | 2025-03-11 22:53 | NUR ---
PATIENT IS RESTING IN BED THIS TIME EYES CLOSED RESPIRATIONS EVEN AND UNLABORED. NO NEEDS AT THIS TIME. CALL LIGHT WITHIN REACH.
--- NOTE | 2025-03-11 23:00 | NUR ---
SPOKE TO MD XAVIER CONFIRMED TO HOLD HS MEDS.
[2025-03-12] VITALS (8 sets, daily range): BP systolic 116–147; BP diastolic 61–88
--- NOTE | 2025-03-12 00:52 | NUR ---
PATIENT IS RESTING IN BED AT THIS TIME AWAKE. PATIENT MOANS OCCASIONALLY WHEN THIS RN IS IN ROOM. PATIENT MUMBLES NO WHEN ASKED IF IN ANY PAIN. PATIENT REPOSIOTNED IN BED WITH PILLOW UNDER LEFT HIP FOR OFFLOADING. CPOX AT BEDSIDE. SCDS IN PLACE. CALL LIGHT WITHIN REACH.
--- NOTE | 2025-03-12 02:12 | NUR ---
PATIENT RESTING IN BED EYES CLOSED AT THIS TIME, RESPIRATIONS EVEN AND UNLABORED. NO NEEDS AT THIS TIME. CALL LIGHT WITHIN REACH.
--- NOTE | 2025-03-12 04:02 | NUR ---
PATIENT REPOSITIONED IN BED WITH PILLOW UNDER RIGHT HIP FOR OFFLOADING. HEELS FLOATED. PATIENT MOANS WHEN TURNED BUT DENIES PAIN. NO FURTHER NEEDS AT THIS TIME. CALL LIGHT WITHIN REACH.
--- NOTE | 2025-03-12 05:20 | NUR ---
PATIENT RESTING IN BED AWAKE, LAB IN ROOM AT THIS TIME. NO FURTHER NEEDS AT THIS TIME. CALL LIGHT WITHIN REACH.
[2025-03-12 05:32] LABS: BASOPHILS 0.6 % (0.2-1.2); EOSINOPHILS 1.4 % (0.8-7.0); LYMPHOCYTES 24.2 % (21.8-53.1); MCH 31.0 PG (25.7-32.2); MCHC 33.1 g/dL (32.3-36.5); MCV 93.7 fL (79.0-92.2); MONOCYTES 11.2 % (5.3-12.2); NEUTROPHILS 62.3 % (34.0-67.9); RBC 2.71 M/uL (4.63-6.08)
--- NOTE | 2025-03-12 05:50 | NUR ---
HERMINIA AND DHRUV TREVINO OBTAINED VITALS AND I&O. PT REPOSITIONED. PT STATES NO FURTHER NEEDS AT THIS TIME. CALL LIGHT WITHIN REACH AND BED ALARM ON.
--- NOTE | 2025-03-12 05:56 | NUR ---
PATIENT IS AWAKE AND ALERT WHEN THIS RN AND SPORTS LAWYER ENTERS ROOM BUT UNABLE TO ASSESS ORIENTATION. PATIENT REPOITIONED IN BED, WITH PILLOW UNDER RIGHT HIP FOR OFFLOADING. NO FURTHER NEEDS AT THIS TIME. CALL LIGHT WITHIN REACH.
[2025-03-12 06:04] LABS: ALT (SGPT) 17.0 U/L (14-59); AST (SGOT) 20.0 U/L (15-37); GLOMERULAR FILTRATION RATE,EST 82.0 mL/min (>60); PROTEIN, TOTAL 5.3 g/dL (6.4-8.2); UREA NITROGEN 12.0 mg/dL (7-18)
--- NOTE | 2025-03-12 07:54 | NUR ---
Patient resting in bed, eyes closed, respirations non labored. CPOX intact, sp02 93% on room air. Patient has no notable distress, call light within pt reach.
[2025-03-12] MEDS ORDERED: POTASSIUM CHLORIDE 40 MEQ,LIDOCAINE HCL 1% 40 MG in DEXTROSE 5% 250 ML IV ONE (09:00)
[2025-03-12] MEDS ORDERED: MAGNESIUM SULFATE 2 GM/50 ML BAG IV ONE (09:00)
--- NOTE | 2025-03-12 09:06 | NUR ---
INTO SEE PATIENT. AT BEDSIDE. SENDING UPDATES TO [facility]. WILL DISCHARGE BACK TO [facility] WHEN MEDICALLY CLEARED FOR D/C. NO FUTHER CM NEEDS.
--- NOTE | 2025-03-12 09:25 | NUR ---
UR DC REVIEW: TREND LABS, ANEMIC, IV FLUIDS FOR HYDRATION PLAN TO RETURN TO [facility] WHEN MEDICALLY READY. ADD: 03/15/25 NO ESCALATIONS NEEDED
--- NOTE | 2025-03-12 11:18 | NUR ---
PT IN ROOM MOANING AND UN WILLING TO TAKE ORAL MEDS. IS CONCERNED IS IN PAIN, WHEN ASKED PT JUST MOAN NO NO. JUST SAW PT, REQUESTING 1X DOSE ATIVAN 1MG IV NOW. ORDERS INPUT.
[2025-03-12] MEDS ORDERED: LORazepam 2 MG/ML VIAL IV ONE (11:30)
--- NOTE | 2025-03-12 13:17 | NUR ---
Mchugh catheter removed per provider order. Catheter tip intact. External catheter placed per 's request and also to prevent skin breakdown. Patient tolerated well.
[2025-03-12] MEDS ORDERED: AMPICILLIN SOD 2 GM in SODIUM CHLORIDE 0.9% 100 ML IV SCH (16:15)
[2025-03-12 16:32] LABS: TSH, 3RD GENERATION 0.899 uIU/mL (0.358-3.740)
--- NOTE | 2025-03-12 16:51 | NUR ---
ATTEMPTED TO GIVE SCHEDULED PO MEDICATIONS CRUSHED IN PUDDING. SMALL BITE PLACED IN PATIENT'S MOUTH, PT REPEATEDLY SPIT OUT PUDDING, HE VERBALIZED "NO, NO, NO". PT WILL NOT TAKE MEDICATION OR PO INTAKE FROM THIS RN AT THIS TIME. PER , PATIENT AT TIMES EATS AND OTHER TIMES DOES NOT.
[2025-03-12] MEDS ORDERED: AMOXICILLIN/CLAVULANATE K 500 MG TAB PO SCH (17:00)
--- NOTE | 2025-03-12 17:34 | NUR ---
reports attempted to feed patient. Patient's inner bottom lip is bleeding, appears patient may have bitten lip. Oral care provided to patient, hob elevated. Patient repositioned with fruit grader assist. Patient continues to moan out "no, no, no..". stopped attempting to feed patient. Dinner tray removed from room. Patient close to RN station.
--- NOTE | 2025-03-12 17:48 | NUR ---
THIS PT MOANS WHILE LAYING IN BED. IT IS DIFFICULT TO TELL WHETHER THE PT MEANS NO WHEN HE SAYS NO, BECAUSE IT IS NOT CLEAR WHAT HE WANTS BECAUSE IF YOU ASK HIM IF HE WANTS A DRINK OF WATER, FOR EXAMPLE, HE WILL VERBALIZE "NO", BUT THEN TAKE A DRINK OF WATER, OTHER TIMES HE SAYS "NO" AND WILL NOT TAKE A DRINK OF WATER, MAKING COMMUNICATION UNCLEAR. THE PT HAD A VERY LARGE BOWEL MOVEMENT, PARTIAL LINEN CHANGE WAS COMPLETED, AND PERICARE WAS COMPLETED WELL A NEW PUREWICK PLACED. TRASH TAKEN OUT OF ROOM AND ROOM CLEARED OUT. PT'S VISITORS LEFT FOR THE EVENING. CALL LIGHT WITHIN REACH, CURTAIN OPON AND BED ALARM ON FOR SAFETY.
--- NOTE | 2025-03-12 19:20 | NUR ---
VERBAL REPORT RECEIVED FROM STARLA BARTLETT. PATIENT RESTING IN BED AWAKE AT THIS TIME. NO NEEDS AT THIS TIME. CALL LIGHT WITHIN REACH.
[2025-03-12] MEDS ORDERED: AMP/SULBACTAM SOD 1.5 GM in SODIUM CHLORIDE 0.9% 100 ML IV SCH (20:00)
--- NOTE | 2025-03-12 20:27 | NUR ---
STRIPPER OPAQUER OBTAINED VITALS AND I&O. PT STATES NO NEEDS AT THIS TIME. CALL LIGHT WITHIN REACH.
--- NOTE | 2025-03-12 21:42 | NUR ---
ATTEMPTED TO HAVE PATIENT SWALLOW APPLSAUCE TO TAKE PILLS. PATIENT TURNED HEAD AWAY FROM SPOON. PATIENT MOANING WHILE AT BEDSIDE. MD NOTIFIED NO NEW ORDERS RECEIVED, MEDICATIONS HELD. NO FURTHER NEEDS AT THIS TIME. CALL LIGHT WITHIN REACH. BED IN LOW POSITION. HEELS FLOATED. SCDS ON. PATIENT REPOSITIONED IN BED FOR COMFORT.
--- NOTE | 2025-03-12 23:54 | NUR ---
PATIENT RESTING IN BED EYES OPEN, RESPIRATIONS EVEN AND UNLABORED. PATIENT IS MOANING OCCASIONALLY WHEN THIS RN IS IN THE ROOM. PATIENTS HEELS FLOATED AND REPOSTIONED FOR COMFORT. CALL LIGHT WITHIN REACH.
[2025-03-13] VITALS (9 sets, daily range): BP systolic 130–142; BP diastolic 80–95
--- NOTE | 2025-03-13 00:28 | NUR ---
ATTEMPTED TO GIVE PRN PAIN MEDICATIONS WITH PUDDING, DUE TO PATIENT FREQUENTLY MOANING. PATIENT TURNED HEAD AND REFUSED MEDICATION. PATIENT REPOSITIONED FOR COMFORT. CALL LIGHT WITHIN REACH. HEELS FLOATED.
--- NOTE | 2025-03-13 00:55 | NUR ---
PILLOW PLACED UNDER RIGHT HIP FOR OFFLOADING. NO NEEDS AT THIS TIME. PATIENT AWAKE IN BED. CALL LIGHT WITHIN REACH.
[2025-03-13] MEDS ORDERED: AMP/SULBACTAM SOD 1.5 GM in SODIUM CHLORIDE 0.9% 100 ML IV SCH ×2 (01:00→03:00)
--- NOTE | 2025-03-13 03:06 | NUR ---
IV ANTIBIOTICS STARTED. PATIENT REPOSITIONED IN BED FOR COMFORT. PILLOW PLACED UNDER LEFT HIP FOR OFFLOADING. SCDS ON, HEELS FLOATED. CALL LIGHT WITHIN REACH. NO FURTHER NEEDS AT THIS TIME
[2025-03-13 05:20] LABS: BASOPHILS 0.5 % (0.2-1.2); EOSINOPHILS 3.0 % (0.8-7.0); LYMPHOCYTES 25.7 % (21.8-53.1); MCH 30.8 PG (25.7-32.2); MCHC 33.3 g/dL (32.3-36.5); MCV 92.3 fL (79.0-92.2); MONOCYTES 11.7 % (5.3-12.2); NEUTROPHILS 58.3 % (34.0-67.9); RBC 2.86 M/uL (4.63-6.08)
--- NOTE | 2025-03-13 05:32 | NUR ---
LEATHER CRAFTER OBTAINED VITALS AND I&O. PT STATES NO NEEDS AT THIS TIME. CALL LIGHT WITHIN REACH.
[2025-03-13 05:40] LABS: ALT (SGPT) 18.0 U/L (14-59); AST (SGOT) 20.0 U/L (15-37); GLOMERULAR FILTRATION RATE,EST 95.0 mL/min (>60); PROTEIN, TOTAL 5.7 g/dL (6.4-8.2); UREA NITROGEN 8.0 mg/dL (7-18)
--- NOTE | 2025-03-13 06:56 | NUR ---
PATIENT RESTING IN BED AWAKE AT THIS TIME, RESPIRATIONS EVEN AND UNLABORED. PATIENT REPOSITIONED. NO FURTHER NEEDS AT THIS TIME. CALL LIGHT WITHIN REACH.
--- NOTE | 2025-03-13 07:56 | NUR ---
Patient resting in bed, eyes closed, respirations non labored. Oxygen is 93% on room air, respirations non labored, hob elevated. Call light within reach.
[2025-03-13] MEDS ORDERED: POTASSIUM CHLORIDE 40 MEQ,LIDOCAINE HCL 1% 40 MG in DEXTROSE 5% 250 ML IV ONE (08:15)
--- NOTE | 2025-03-13 09:08 | NUR ---
Patient continues to rest, eyes closed, respirations non labored. requesting staff to allow patient to rest at this time. IV abx started per order. Call light within reach.
[2025-03-13] MEDS ORDERED: DIVALPROEX SODIUM 125 MG CAP.SPRINK PO SCH (10:30)
--- NOTE | 2025-03-13 10:55 | NUR ---
Patient took po medications crushed in ice cream. Head of bed left elevated. at bedside.
--- NOTE | 2025-03-13 11:34 | NUR ---
TWO STATIC BALANCER'S CHANGED THIS PT. THE PUREWICK WAS WORKING BUT DID NOT HAVE A GOOD SEAL AT THE TESTICAL AREA AND THE BED WAS WET. CHANGED LINENS, DIAPER AND PUREWICK. PT HAS A VISITOR IN THE ROOM, CALL LIGHT IS NEAR HIM BUT THE VISITOR WILL NOTIFY. CURTAIN OPEN FOR SAFETY.
--- NOTE | 2025-03-13 12:01 | NUR ---
Admin zofran 8mg iv at this time. Patient vomited clear light green emesis-pt ate small portion of a green popsicle. Hob elevated at this time, at bedside.
[2025-03-13] MEDS ORDERED: AMOXICILLIN/CLAVULANATE K 875 MG TAB PO SCH (15:45)
--- NOTE | 2025-03-13 15:47 | NUR ---
Patient incontinent of large soft stool. Brief changed, new coccyx dressing applied. External male pure wick also changed at this time. Patient repositioned, head of bed elevated. in room with patient. No further needs at this time.
[2025-03-13] MEDS ORDERED: AMOXICILLIN/CLAVULANATE K 500 MG TAB PO SCH (17:00)
[2025-03-13] MEDS ORDERED: FLUCONAZOLE/SOD CHLORIDE 100 ML IV SCH (18:15)
--- NOTE | 2025-03-13 20:54 | NUR ---
HOB ELEVATED, ON ROOM AIR, CPOX ON AT BEDSIDE, SEMICOOPERATIVE WITH TAKING MEDS, MEDS GIVEN CRUSHED WITH SOFT ICE CREAM SLURRY. TOOK SEVERAL TRIES. ALL CARES EXPLAINED, PT UNABLE TO COMPREHEND. LUNGS CLEAR DIM AT BASES, ABD SOFT, CM, LBM TODAY, MALE PUREWWICK IN PLACE, ATTENDS CHENDED DUE TO URINE MOISTURE. SKIN CARE COMPLETED. BRUISED R HIP AND R LOWER ABD, 2 SMALL 2X2 DRESSING AND SS IN R ABD SIDE AND ALLEVYN TO BUTTOCKS AREA. . IV INFUSING LFA. ASPIRATION PRECAUTION IN POLACE, SCDS IN PLACE, CBG 103, NO COVERAGE NEEDED. SCDS IN PLACE. 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 ELEVATED.
[2025-03-13] MEDS ORDERED: TICAGRELOR 60 MG TABLET PO SCH (21:00)
[2025-03-13] MEDS ORDERED: DEXTROMETHORPHAN HBR/QUINIDINE 1 EACH CAPSULE PO SCH (21:00)
[2025-03-14] VITALS (7 sets, daily range): BP systolic 122–133; BP diastolic 58–81
--- NOTE | 2025-03-14 01:30 | NUR ---
EYES CLOSED, ON ROOM AIR, CPOX IN PLACE, IVF INFUSIGN W/O PROBLEMS, REPOSITIONED, PUREWICK IN PLACE, SCDS IN PLACE, QUIET
--- NOTE | 2025-03-14 05:08 | NUR ---
respositioned, quiet,onroom air, IVF infusing, purewick in place, patent voising qs
[2025-03-14 05:17] LABS: BASOPHILS 0.6 % (0.2-1.2); EOSINOPHILS 4.8 % (0.8-7.0); LYMPHOCYTES 25.9 % (21.8-53.1); MCH 31.3 PG (25.7-32.2); MCHC 33.2 g/dL (32.3-36.5); MCV 94.1 fL (79.0-92.2); MONOCYTES 11.8 % (5.3-12.2); NEUTROPHILS 56.3 % (34.0-67.9); RBC 3.04 M/uL (4.63-6.08)
[2025-03-14 05:41] LABS: ALT (SGPT) 24.0 U/L (14-59); AST (SGOT) 30.0 U/L (15-37); GLOMERULAR FILTRATION RATE,EST 92.0 mL/min (>60); PROTEIN, TOTAL 5.8 g/dL (6.4-8.2); UREA NITROGEN 7.0 mg/dL (7-18)
--- NOTE | 2025-03-14 05:59 | NUR ---
awakens easily, on room air, cpox at bedside, ivf infusing w/o problems, male pure wick in place, draining large amount of medium yellow urine. contracture R hand, elevated, abduction of R foot noted. BLE elevated with pillows, SCD's in place. All cares explained, quiet, fall and aspiration precautions in place
--- NOTE | 2025-03-14 07:49 | NUR ---
PT IS LAYING IN BED AT THIS TIME, EYES CLOSED, BUT AWAKENS AND LOOKS AT RN UPON TALKING IN ROOM WITH TRAFFIC ENUMERATOR. PT NOT ANSWERING QUESTIONS, JUST MOANS WHEN ASKED IF WANTING TO GET UP TO CHAIR. PER TRAFFIC ENUMERATOR, DID NOT WANT HIM UP YESTERDAY, WILL ATTEMPT TODAY AGAIN. IV FLUID INFUSING ORDERED. PT ON RA AT THIS TIME. ALL PT CARE NEEDS MET, BED ALARM IN PLACE, THIS RN ALLOWS PATIENT TO CONTINUE TO REST AT THIS TIME.
[2025-03-14] MEDS ORDERED: POTASSIUM CHLORIDE 40 MEQ,LIDOCAINE HCL 1% 40 MG in DEXTROSE 5% 250 ML IV ONE (09:00)
--- NOTE | 2025-03-14 10:30 | NUR ---
PT HAS REFUSED ALL MEDS THIS MORNING. HAS ATTEMPTED TO FEED PATIENT AND HE IS REFUSING ALL FOOD FROM HER, REFUSING TO TAKE SIPS OF WATER. PT MOANING, STATES IN PAIN BUT CANNOT IDENTIFY LOCATION OR EXPRESS THAT TO NURSING STAFF, STATES HE IS WILLING TO TAKE SOMETHING FOR PAIN BUT WHEN OFFERED PATIENT PULLS HEAD AWAY AND YELLS NO, NURSING TRIES PT PULLS BACK AN NO IS MORE FORCEFUL. IV POTASSIUM INFUSING WITH IV FLUIDS AT THIS TIME. BOTH MDS PRESENT IN THE ROOM THIS MORNING AND HAVE DISCUSSED OPTIONS AND POC MOVING FORWARD. WAS GIVEN OPTIONS AND WILL PONDER AND DISCUSS PLAN WHEN DR TERRAZAS ROUNDS THIS AFTERNOON. ALL MORNING MEDS CHARTED NOT GIVEN.
--- NOTE | 2025-03-14 10:45 | NUR ---
TRASH REMOVED FROM ROOM. PT HAS ONE VISITOR IN THE ROOM.
[2025-03-14] MEDS ORDERED: LORazepam 2 MG/ML VIAL IV ONE (11:00)
--- NOTE | 2025-03-14 11:15 | NUR ---
PER , PT CRYING/TEARFUL DUE TO RECENT CONVERSATIONS. HOSPITALIST CALLED, ATIVAN 1MG IV ONCE ORDERED, THIS RN INPUT ORDERS.
--- NOTE | 2025-03-14 12:50 | NUR ---
PT RESTING IN RECLINER, PT SLEEPING WITH EYES CLOSED, OPENED WHEN THIS RN CONVERSED WITH , BUT LAID HEAD BACK DOWN AND CLOSED EYES. PT APPEARS MORE COMFORTABLE. ALL PT CARE NEEDS MET AT THIS TIME. NO OTHER NEEDS AT THIS TIME.
[2025-03-14] MEDS ORDERED: HYDROmorphone HCL 1 MG/ML SYR IV PRN (13:45)
[2025-03-14] MEDS ORDERED: AMP/SULBACTAM SOD 3 GM in SODIUM CHLORIDE 0.9% 100 ML IV SCH (14:00)
--- NOTE | 2025-03-14 14:15 | NUR ---
GOT REPORT FROM DAY SHIFT NURSE. THIS NURSE WILL BE DOING CARES FOR THE AFTERNOON.
--- NOTE | 2025-03-14 15:19 | NUR ---
PATIENT RESTING, REFUSING MEDICATIONS. IV ANTIBIOTIC STARTED. IV FLUIDS RUNNING. BED IN LOW POSITION. WATER AT BEDSIDE.
--- NOTE | 2025-03-14 15:23 | NUR ---
PT WAS MOANING VERBALLY. I TOOK A WARM WASH CLOTH AND WIPES OFF HIS FACE, THIS SEEMS TO CALM THE MOANING A LITTLE. I ALSO WIPED OFF HIS HANDS AND LOWER ARM AREA. ALSO, UPON CHECKING WITH PT'S RN, GOT A WARM PACK MADE AND PLACED IT ON HIS BELLY AREA - SURGICAL SITE. THERE WAS TWO LAYERS OF FABRIC, SHEETS, BETWEEN THE HOT PACK AND THE PT'S SKIN - AND THE WAS WATCHING THE WARMTH LEVEL.
--- NOTE | 2025-03-14 16:30 | NUR ---
FAMILY AT BEDSIDE. DR. TERRAZAS INTO TALK TO PATIENT. PATIENT MOANING, PAIN MEDICATIONS GIVEN AND TRIED TO GIVE PATIENT FROZEN LEMONAIDE. PATIENT KEPT SAYSING, "NO,NO, NO".
--- NOTE | 2025-03-14 17:46 | NUR ---
INTO CHECK ON PATIENT, PATIENT SLEEPING BUT WAKES UP WHEN WALK IN. PATIENT MOANS WHEN LOOKING AT YOU. TRIED TO FEED PATIENT DINNER BUT HE REFUSES.
--- NOTE | 2025-03-14 20:32 | NUR ---
VITALS DONE, PATIENT REFUSED TEMP.
[2025-03-14] MEDS ORDERED: CLAVULANATE PO SCH (21:00)
[2025-03-14] MEDS ORDERED: AMOXICILLIN PO SCH (21:00)
[2025-03-14] MEDS ORDERED: FLUCONAZOLE/SOD CHLORIDE 100 ML IV SCH (21:00)
--- NOTE | 2025-03-14 21:41 | NUR ---
PT HEARD MOANING FROM RN STATION. MATERIAL HANDLING WAREHOUSE SUPERVISOR TO ROOM. PT DOES NOT ANSWER QUESTIONS, UNABLE TO STATE WHETHER HE IS HAVING PAIN OR NOT. PT MOANING CONSTANTLY, SHIFTING LEGS AND ARMS, PT IS INCONSOLABLE. NON VERBAL PAIN SCALE SCORE 7/10. PRN ADMINISTERED. SEE EMAR. PRIMARY RN UPDATED.
--- NOTE | 2025-03-14 22:58 | NUR ---
RESTING, EYES CLOSED, NO S/SX DISTRESS, CALM QUIET, IVF INFUSING
--- NOTE | 2025-03-15 01:08 | NUR ---
Resting, eyes closed, on room air, calm, quiet, CPOX in place, IVF infusing SCD's in place male purewick in place patent
--- NOTE | 2025-03-15 02:59 | NUR ---
awake, quiet, on room air, IVF infusing L hand area. Was repositioned in bed floating w pillows, Waffle mattress in place. purewick in place, draining medium yellow colored urine. attends in place, dry. SCDs in place, LE elevated
[2025-03-15 06:08] VITALS: BP 123/81
--- NOTE | 2025-03-15 07:50 | NUR ---
Pts Angeline came to my office. She would like to visit and she would like to know more about palliative care. I let her know I will be there shortly, when I finish printing orders for the hospitalist.
--- NOTE | 2025-03-15 08:02 | NUR ---
HOURLY ROUNDING. CHECKED ON PATIENT AND HE INSTANLY GETS EMOTIONAL/ NONVERBAL, UPDATED PATIENT BOARD AND PLACED CALL LIGHT WITHIN REACH
--- NOTE | 2025-03-15 08:05 | NUR ---
Spoke with Angeline and her son, Vladimir. Updated to Palliative care and there is not a program in our area. [facility] closest [facility] and the do not see pt in [place]. I attempted to discuss hospice and per Angeline they are not ready to consider this at this time. I let her know I can call [facility] and update they are looking for more of a palliative type program. I asked he what this would look like to her. She is looking to decrease his meds, has access to a ENVELOPE MAKER, and Cause Analyst for support. I again let her know I can call [facility] and see if they can provide this type of care. Pt is an [facility] pt. Angeline is waiting to see Dr. Cobos as she states they are discharging today. Called and spoke with Domingo, she feels this is possible. She will speak with their DNS and ask her to call Angeline.
[2025-03-15 09:29] VITALS: BP 162/94
--- NOTE | 2025-03-15 09:33 | NUR ---
HOURLY ROUNDING PATIENT REFUSING AD[facility] CARE. AT BEDSIDE CALL LIGHT HAS BEEN PLACED WITHIN REACH
[2025-03-15] MEDS ORDERED: TAMSULOSIN HCL0.4 MG PO (11:23)
[2025-03-15] MEDS ORDERED: TICAGRELOR PO (11:23)
[2025-03-15 11:39] VITALS: BP 143/92
[2025-03-15 11:40] VITALS: BP 143/92
[2025-03-15] MEDS ORDERED: LORazepam 2 MG/ML VIAL IV ONE (11:45)
--- NOTE | 2025-03-15 11:45 | NUR ---
In with pt to prepare him for discharge. Pt's requested we ask the MD for some ativan prior to transporting him as he sounds pretty agitated. Verbal order obtained from Dr. Orozco for 0.5mg Lorazepam IV one time dose now. This was administered. Erinmariah PollardMary performed a partial bed bath as pt would allow and male purewick was removed at this time. IV DC'd as well, pressure bandage applied. Allyvn on sacrum in place, CDI. Zoey care performed at this time. Pt moans and groans throughout processes. Eyes open.
--- NOTE | 2025-03-15 12:23 | NUR ---
EMS here to transport pt to [facility] at this time. 4 person sheet transfer pt from bed to stretcher. Pt tolerated well; however, continues to moan. Pt's at bedside. Paperwork provided to EMS personnel. Report provided to them as well. Pt report called to [facility] at this time. Report provided to DHRUV Koenig at [phone]
--- NOTE | 2025-03-17 06:21 | OR ---
[facility] [address], [place] [address] Signed DATE OF OPERATION: 03/09/2025 SURGEON: Arti Terrazas MD PREOPERATIVE DIAGNOSES: 1. Chronic persistent disabling acalculous cholecystitis (CCK ejection fraction 0% with reproduction of symptoms). 2. 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 POSTOPERATIVE DIAGNOSES: 1. Chronic persistent disabling acalculous cholecystitis (CCK ejection fraction 0% with reproduction of symptoms). 2. 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 3. Nodular cirrhosis without obvious portal hypertension. PROCEDURES: 1. Laparoscopic cholecystectomy with intraoperative cholangiogram (difficult). 2. Surgeon-directed fluoroscopy for intraoperative cholangiogram. 3. Core liver biopsy medial segment left lobe of liver. ANESTHESIA: General endotracheal, Fermin Skinnerby, ROPE MACHINE SETTER and local 20 mL of 0.25% Marcaine with epinephrine. INDICATION: This 69-year-old white man is a patient of CHAPARRO Feliz. He has a complex past medical history including cerebrovascular accident resulting in dense right hemiplegia. He has syndromes with emotional lability. He was evaluated for biliary type symptoms in July of last year, found on ultrasound to have sludge, but had additionally right iliac vein thrombosis and numerous other medical problems at that time. A gastrostomy tube had been in place providing his sustenance. There was some hint of possible nodularity of the liver, though he had no ascites and no thrombocytopenia. As time has gone on while in the skilled nursing, he has had improvement in many ways, but now is essentially disabled as far as eating, having immediate postprandial epigastric and right subcostal pain consistent with biliary disease. A CCK-HIDA test was obtained, which showed an ejection fraction of 0% with reproduction of symptoms highly consistent with acalculous cholecystitis. Despite his numerous medical problems and increased risk of problems, the family is Electronically Signed By: ARTI TERRAZAS MD 03/09/25 1533 Electronically Signed By: ARTI TERRAZAS MD 03/17/25 1333 PATIENT NAME: MAGALYS HILLIARD OPERATIVE REPORT DATE OF : 59 REPORT #: [id number] PHYSICIAN: ARTI TERRAZAS MD PCP: AIDE FELTON REPORT IS CONFIDENTIAL AND NOT TO BE RELEASED WITHOUT AUTHORIZATION [facility] [address], [place] [address] Signed desperate and wished strongly that he undergo cholecystectomy if possible. On that basis, I have accepted that challenge and the patient and family understand that he does have increased risk of complications related to surgery given his underlying medical problems, but this is the only reasonable way to provide an avenue for him to continue with his oral intake and recovery. The risk of bleeding, infection, perioperative cardiovascular complications, and other unforeseen complications was reviewed in detail. He understands as does his and they wish to proceed. FINDINGS: He had no evidence of ascites but clearly did have nodular cirrhotic changes. The operation was performed with extreme care and caution so as to avoid inordinate bleeding and was accomplished safely. Cholangiogram was normal. The gallbladder once opened showed no sign of stones or sludge. There was chronic inflammatory change of the mucosa, however. The liver was biopsied to assess the degree and possibly source of his cirrhosis without complication as well. DESCRIPTION OF PROCEDURE: The patient was brought to the operating room, given a general endotracheal anesthetic. Preoperative antibiotic Ancef had been given, sequential compression device stockings were used and he had been treated with heparin on high risk of deep venous thrombosis formation. The abdomen was clipped and prepared with chlorhexidine solution and draped sterilely. An infraumbilical incision was made and using an open John cannula technique pneumoperitoneum was achieved to a level of 14 mmHg of carbon dioxide gas. Intra-abdominal inspection showed no sign of ascites or carcinomatosis, but did show omentum covering the liver itself. An epigastric 12 mm port was placed under direct visualization availing the liver from the omental covering and confirming indeed nodular cirrhotic changes. There is no evidence of actual portal hypertension per se, specifically no intra-abdominal varices. Two additional trocars were placed in their usual configuration in the subxiphoid and right midclavicular line. The gallbladder was carefully elevated against a rather firm and woody cirrhotic liver and the infundibulum grasped and retracted laterally. Covering over the gallbladder was fatty peritoneum. Using blunt and electrocautery dissection, the gallbladder was freed and more fully exposed ultimately identifying the cystic duct. It was well positioned to allow for cholangiogram. A clip was applied across the gallbladder cystic duct junction and transverse choledochotomy was made in the cystic duct. Egress of clear bile was noted. Using the Bustamante type cholangiocatheter, intraoperative cholangiography was undertaken showing free flow of contrast in the biliary tree with prompt emptying into the duodenum. There was no sign of filling defect. The catheter was removed and the cystic duct was triply clipped and divided. With meticulous care, the gallbladder was dissected free from the liver bed, maintaining as much as possible the avascular plane. Numerous small blood vessels were noted to be emanating in association with the gallbladder but they were clipped as necessary and cauterized and minimal blood loss was Electronically Signed By: ARTI TERRAZAS MD 03/09/25 5825 Electronically Signed By: ARTI TERRAZAS MD 03/17/25 6078 PATIENT NAME: MAGALYS HILLIARD OPERATIVE REPORT DATE OF : 59 REPORT #: [id number] PHYSICIAN: ARTI TERRAZAS MD PCP: AIDE FELTON REPORT IS CONFIDENTIAL AND NOT TO BE RELEASED WITHOUT AUTHORIZATION [facility] [address], [place] [address] Signed noted. A small rent was made in the gallbladder with egress of clear bile, but that was short lived. The gallbladder was placed in an endobag and extracted through the infraumbilical port site without problem. Irrigation was undertaken in the subhepatic space. Extreme care taken to assure hemostasis. Excess irrigation fluid was suctioned free and Brandon hemostatic agent was applied to the gallbladder fossa. Given the cirrhotic nature of his liver, a biopsy was planned. Through a tiny stab incision in the epigastric area, a 14-gauge core needle biopsy device was passed and a core biopsy taken of the medial segment left lobe of the liver. A good core specimen was noted. Surprisingly, there was essentially no bleeding from the puncture site. Excess irrigation fluid was suctioned free and the trocars were removed under direct visualization showing no sign of bleeding. The infraumbilical fascial incision was reapproximated with interrupted 0 Vicryl and a running 0 Vicryl as well on the possibility of postoperative ascites related to the anesthesia and underlying nodular cirrhosis. 10 mL of 0.25% Marcaine with epinephrine was injected locally. The skin was then closed with interrupted 3-0 Vicryl. Steri-Strips were applied. The patient was ultimately extubated and transferred to the recovery room in good condition having suffered no complications. Sponge, needle, and instrument counts were reported as correct x3. Arti Terrazas MD JM/MODL /[id number] cc: CHAPARRO Feliz Copies: AIDE FELTON ~ Electronically Signed By: ARTI TERRAZAS MD 03/09/25 1533 Electronically Signed By: ARTI TERRAZAS MD 03/17/25 1333 PATIENT NAME: MAGALYS HILLIARD OPERATIVE REPORT DATE OF : 59 REPORT #: [id number] PHYSICIAN: ARTI TERRAZAS MD PCP: AIDE FELTON REPORT IS CONFIDENTIAL AND NOT TO BE RELEASED WITHOUT AUTHORIZATION
--- NOTE | 2025-03-24 10:19 | DS ---
[facility] [address], [place] [address] Signed ADMISSION DATE: 03/08/2025 DISCHARGE DATE: 03/15/2025 REASON FOR ADMISSION: Chronic acalculous cholecystitis. Multiple medical problems. HISTORY OF PRESENT ILLNESS: This 69-year-old white man has long-standing institutionalization at [facility] related to a significant cerebrovascular accident he suffered approximately two years ago resulting in right hemiplegia related to a left-sided cerebrovascular accident. He was seen in July of this year with other medical problems and thought to have intolerance of gastrostomy tube feeding, thought possible related to biliary disease. An ultrasound was performed at that time, which did not show acute calculous cholecystitis, but did show some gallbladder sludge. He concurrently had right iliac venous thrombosis as well as underlying other issues including chronic anxiety, signs and symptoms of significant dementia and limited mobility related to his cerebrovascular accident. He does have underlying CADASIL syndrome. He since that time had removal of his gastrostomy tube as he was tolerating oral intake reasonably well. His initial bulbar cerebrovascular symptoms had resolved enough that he could tolerate oral intake well. It is noted that he would not take food from the jail and his brought him his own food much of the time. I was called by his insisting that he undergo cholecystectomy as he in the meantime has developed right upper abdominal pain following meals. A CCK-HIDA test was performed, which had shown a CCK-HIDA test ejection fraction of 0% ejection fraction. Mindful of this has been essentially six months since his deep venous thrombosis and his oral intake was considered completely debilitating related to right upper abdominal pain ostensibly from nonfunctioning gallbladder. I did agree to proceed with him for cholecystectomy. A separate distinct note was an imaging study that had at one time described possible nodular changes of the liver. He has no underlying special risks factors for cirrhosis, specifically no history of alcoholism, hepatitis, or other known ailment. Quite notably, his brother of cirrhosis related to hepatitis C. He is admitted at this time to undergo a laparoscopic cholecystectomy, anticipating prompt return to the care facility in expectation of improvement for his oral intake related to right upper abdominal pain following meals and documented dyskinesia of the gallbladder. PERTINENT PHYSICAL EXAMINATION: Electronically Signed By: ARTI TERRAZAS MD 03/15/25 2145 PATIENT NAME: MAGALYS HILLIARD DISCHARGE SUMMARY DATE OF : 59 REPORT #: [id number] PHYSICIAN: ARTI TERRAZAS MD PCP: AIDE FELTON REPORT IS CONFIDENTIAL AND NOT TO BE RELEASED WITHOUT AUTHORIZATION [facility] [address], [place] [address] Signed GENERAL: Showed a very debilitated white man with right hemiplegia. 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 CHEST: Clear. HEART: Regular. ABDOMEN: Nondistended and not focally tender. He had no ascites. EXTREMITIES: Showed mild edema. HOSPITAL COURSE: On March 09, 2025, he underwent laparoscopic evaluation. This did show chronic cholecystitis, but also showed occult hepatic cirrhosis. Cholecystectomy and cholangiogram were performed with extreme caution and causing no bleeding during the course of dissection. Liver biopsy was obtained as well to better characterize his level of cirrhosis. Postoperatively, he had an extremely prolonged wake-up time in the recovery room benefitted initially by administration of Narcan. Consultation was undertaken with the hospitalist for additional expertise regarding his numerous medical problems. He was able to converse, though was somewhat reserved in doing so compared to preoperatively but has garbled and unintelligible speech as a baseline. He had no lateralizing sign to suggest new cerebrovascular accident. His blood pressure was variably decreased, which responded well to fluid boluses. His hematocrit did decrease some but was unlikely to be related to operative bleeding. He returned to his mental baseline within 48 hours of the procedure, but was not tolerating oral intake well. He did not have postprandial abdominal pain, but was eating relatively little food. Given his somewhat labile blood pressure and urine output and variable oral intake, delay of discharge was deemed most appropriate. His blood pressure was relatively low and maintenance of his fluids was undertaken. DVT prophylaxis included sequential compression device stockings. The patient had some issues concerning for possible recrudescence of his neurologic deficit following anesthesia as he seemed unable to swallow well. Swallowing with other food such as ice cream tolerated well, however, and ultimately his was able to feed him 20 Olives and half of a sliced cucumber without impediment. Incidentally, urinalysis did suggest a urinary tract infection which was treated ultimately with ampicillin intravenously administered. The patient did develop some thrombocytopenia and minimal ascites based on a bladder scan that was obtained; this is deemed predictable based on his underlying cirrhotic changes of the liver and recent general anesthesia. Some level of diuresis was employed on that basis. The patient then was having issues of urinary reliability. A Mchugh catheter was placed, later transition to a PureWick device. The patient then was having unwillingness to take his medications by mouth and indeed Electronically Signed By: ARTI TERRAZAS MD 03/15/25 2145 PATIENT NAME: MAGALYS HILLIARD DISCHARGE SUMMARY DATE OF : 59 REPORT #: [id number] PHYSICIAN: ARTI TERRAZAS MD PCP: AIDE FELTON REPORT IS CONFIDENTIAL AND NOT TO BE RELEASED WITHOUT AUTHORIZATION [facility] [address], [place] [address] Signed unwillingness to take regular food. It became clear it was not that he was unable to swallow, but rather this he was unwilling to do so. The nasoenteric feeding tube was offered and rejected by the patient and his . A PEG tube though an option was a less attractive option as he does have minimal low-grade ascites (which will resolve in time). In time, it became clear that he had recovered his neurologic issues back to a baseline, but he remains unwilling to take his medications and usual oral sustenance. Mindful that he would not allow for an enteral feeding approach, hence agreed by all parties and in particular his and the patient himself that he simply return to the jail. Food and medicines will be offered and when he is at a point that he wishes to more fully participate in his own health maintenance, he will do so. The patient signed a POLST form to be do not resuscitate, which will be conveyed to the jail as well. DISCHARGE MEDICATIONS: Will include: 1. Flomax 0.8 mg p.o. at bedtime. 2. Brilinta 60 mg p.o. b.i.d. 3. Albuterol Ventolin inhaler two puffs q.4 hours p.r.n. shortness of breath. 4. Zofran 4 mg tablets p.r.n. nausea. 5. Potassium chloride 50 mEq p.o. b.i.d. 6. Dulcolax p.o. 5 mg 1-2 p.r.n. constipation. 7. Milk of magnesia 30 mL p.o. p.r.n. constipation. 8. Coreg (carvedilol) 12.5 mg p.o. b.i.d. 9. Fleet enema p.r.n. constipation. 10. Hydralazine 25 mg tabs p.o. q.8 hours p.r.n. hypertension. 11. MiraLAX 1 scoop daily p.r.n. constipation. 12. Aspirin 81 mg p.o. daily. 13. Divalproex (Depakote) 125 mg tablets 500 mg p.o. b.i.d. 14. Nuedexta 20/10 two p.o. q.8 hours p.r.n. fever. Avoid if able based on underlying hepatic insufficiency related to cirrhosis. 15. Atorvastatin 40 mg p.o. at bedtime. 16. Clonazepam 0.25 to 0.5 mg p.o. b.i.d. p.r.n. agitation. 17. Dulcolax 10 mg suppository p.r.n. constipation. 18. Gabapentin 300 mg p.o. t.i.d. 19. Melatonin 5 mg p.o. at bedtime. 20. Omeprazole 20 mg p.o. daily. 21. Calcium carbonate, Tums 500 mg 200 p.o. q. 6 p.r.n. heartburn. 22. Sertraline Zoloft 100 mg p.o. daily. Electronically Signed By: ARTI TERRAZAS MD 03/15/25 4922 PATIENT NAME: MAGALYS HILLIARD DISCHARGE SUMMARY DATE OF : 59 REPORT #: [id number] PHYSICIAN: ARTI TERRAZAS MD PCP: AIDE FELTON REPORT IS CONFIDENTIAL AND NOT TO BE RELEASED WITHOUT AUTHORIZATION [address] [address] Signed DISCONTINUED MEDICATIONS: Include higher dose of Tylenol routinely given and scopolamine patch. The patient has completed his antibiotic therapy for urinary tract infection incidentally noted and asymptomatic. DISCHARGE DIAGNOSES: 1. Chronic acalculous cholecystitis (CCK ejection fraction 0%), status post laparoscopic cholecystectomy with intraoperative cholangiogram and incidental findings of hepatitis and thus hepatic biopsy. 2. CADASIL syndrome with left cerebrovascular accident and right dense hemiplegia. 3. Anxiety disorder and frontal release phenomenon. 4. Postoperative delayed emergence from anesthesia with postoperative recrudescence of neurologic deficit with complete resolution. 5. Variable degrees of urinary incontinence and retention. 6. Gastroesophageal reflux. FOLLOWUP PLANS: No specific followup in my office will be necessary. His wounds are healing well and no further intervention is expected. MD GERARDO Gilbert/LAURAL /[id number] Copies: ~ Electronically Signed By: ARTI TERRAZAS MD 03/15/25 2145 PATIENT NAME: MAGALYS HILLIARD DISCHARGE SUMMARY DATE OF : 59 REPORT #: [id number] PHYSICIAN: ARTI TERRAZAS MD PCP: AIDE FELTON REPORT IS CONFIDENTIAL AND NOT TO BE RELEASED WITHOUT AUTHORIZATION
== END 2025-03-15 12:20 | DRG 417 ==
LOC: MS 12:10 → EDSTATUS 12:10 → MS 14:30
PROVIDERS: Student in an Organized Health Care Education/Training Program; ADMIT Surgery; ATTEND Surgery
PROC: 3E03329 Introduction of Other Anti-infective into Peripheral Vein, Percutaneous Approach (ICD-10-PCS; 2025-03-08)
PROC: BF10YZZ Fluoroscopy of Bile Ducts using Other Contrast (ICD-10-PCS; 2025-03-09)
PROC: 0FB23ZX Excision of Left Lobe Liver, Percutaneous Approach, Diagnostic (ICD-10-PCS; 2025-03-09)
PROC: 0FT44ZZ Resection of Gallbladder, Percutaneous Endoscopic Approach (ICD-10-PCS; principal; 2025-03-09 11:15)
PROC: 0T9B70Z Drainage of Bladder with Drainage Device, Via Natural or Artificial Opening (ICD-10-PCS; 2025-03-10)
DX: K81.0 Acute cholecystitis (principal); J96.01 Acute respiratory failure with hypoxia; N39.0 Urinary tract infection, site not specified; I69.351 Hemiplegia and hemiparesis following cerebral infarction affecting right dominant side; I67.850 Cerebral autosomal dominant 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; N17.9 Acute kidney failure, unspecified; R18.8 Other ascites; Z66 Do not resuscitate; E11.9 Type 2 diabetes mellitus without complications; I10 Essential (primary) hypertension; E78.5 Hyperlipidemia, unspecified; K74.60 Unspecified cirrhosis of liver; K81.1 Chronic cholecystitis; F48.2 Pseudobulbar affect; F41.9 Anxiety disorder, unspecified; B95.2 Enterococcus as the cause of diseases classified elsewhere; D64.9 Anemia, unspecified; D69.6 Thrombocytopenia, unspecified; R33.9 Retention of urine, unspecified; Z88.5 Allergy status to narcotic agent; Z86.718 Personal history of other venous thrombosis and embolism; Z79.82 Long term (current) use of aspirin
CPT/HCPCS: 00790; 36415; 51702; 51798; 71045; 76770; 80053; 80164; 81001; 82140; 83690; 83735; 84439; 84443; 85025; 85610; 87077; 87088; 87186; 88304; 88307; 88313; 93005; 93010; 94762; 94799; 97161; A9270; J0131; J0295; J0330; J0688; J0696; J1100; J1171; J1450; J1630; J1644; J1885; J1938; J2003; J2060; J2270; J2312; J2405; J2704; J3010; J3475; J3480; J3490; J7060; J7120; J7121